=== PATIENT | female | born 1990 | race Caucasian/White ===

== ENCOUNTER 2022-07-26 10:27 | Outpatient (REF) | payer OTHER, SELFPAY ==
[2022-07-27 09:51] LABS: CT PCR NOT DETECTED (Not Detect.); NG PCR NOT DETECTED (Not Detect.)
[2022-07-27 10:03] LABS: BV Int Neg Control Negative (Negative); BV Int Pos Control Positive (Positive)
[2022-08-01 09:28] LABS: HPV 16 RNA NOT DETECTED (NOT DETECTED); HPV mRNA E6/E7 rflx Detected (Not Detected)
== END 2022-07-26 10:28 | disposition home or self-care (01) ==
LOC: HO.LNP 10:27
PROVIDERS: Visit Provider Advanced Practice Midwife
DX: Z01.419 Encounter for gynecological examination (general) (routine) without abnormal findings (principal); E66.01 Morbid (severe) obesity due to excess calories; Z20.2 Contact with and (suspected) exposure to infections with a predominantly sexual mode of transmission
CPT/HCPCS: 0353U; 87480; 87510; 87624; 87625; 87660; 88142

== ENCOUNTER 2022-07-31 13:31 | Outpatient (REF) | payer OTHER, SELFPAY ==
[2022-07-31 16:21] LABS: Thyroid Stimulating Hormone 1.02 uIU/mL (0.32-4.0)
[2022-08-01 05:35] LABS: Syphilis Screen Nonreactive (Nonreactive)
[2022-08-01 05:53] LABS: HBsAGNum1 0.24 S/CO (0.00-0.99); HIV AB/AG Nonreactive (Nonreactive); HIV Num 1 0.07 S/CO (0.00-0.99); Hepatitis B Surface Antigen Negative (Negative); ~HepC Num1 0.38 S/CO (0.00-0.79); ~Hepatitis C Antibody Nonreactive (Nonreactive)
== END 2022-07-31 13:32 | disposition home or self-care (01) ==
LOC: HO.LAB 13:31
PROVIDERS: Visit Provider Advanced Practice Midwife
DX: Z01.419 Encounter for gynecological examination (general) (routine) without abnormal findings (principal); E66.01 Morbid (severe) obesity due to excess calories; Z11.3 Encounter for screening for infections with a predominantly sexual mode of transmission
CPT/HCPCS: 36415; 84443; 86780; 86803; 87340; 87389

== ENCOUNTER 2022-08-30 10:07 | Outpatient (REF) | payer OTHER, SELFPAY ==
[2022-08-31 09:06] LABS: BV Int Neg Control Negative (Negative)
[2022-08-31 09:07] LABS: BV Int Pos Control Positive (Positive)
== END 2022-08-30 10:08 | disposition home or self-care (01) ==
LOC: HO.LNP 10:07
PROVIDERS: Visit Provider Advanced Practice Midwife
DX: N89.8 Other specified noninflammatory disorders of vagina (principal); B37.31 Acute candidiasis of vulva and vagina
CPT/HCPCS: 87480; 87510; 87660; 99212

== ENCOUNTER 2023-07-31 13:18 | Outpatient (REF) | payer OTHER, SELFPAY ==
[2023-08-08 05:09] LABS: HPV 16 RNA NOT DETECTED (NOT DETECTED); HPV mRNA E6/E7 rflx Detected (Not Detected)
== END 2023-07-31 13:19 | disposition home or self-care (01) ==
LOC: HO.LNP 13:18
PROVIDERS: PCP Internal Medicine; Visit Provider Advanced Practice Midwife
DX: Z01.419 Encounter for gynecological examination (general) (routine) without abnormal findings (principal); Z11.51 Encounter for screening for human papillomavirus (HPV); L98.9 Disorder of the skin and subcutaneous tissue, unspecified; R03.0 Elevated blood-pressure reading, without diagnosis of hypertension
CPT/HCPCS: 87624; 87625; 88142; 99395

== ENCOUNTER 2023-07-31 13:18 | Outpatient (AMB) | payer OTHER, SELFPAY ==
[2023-07-31 13:17] VITALS: BP 130/84; BMI 39.9
--- NOTE | 2023-07-31 13:17 | A.OFFVIS_ITS ---
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 I discussed this with the patient and she said something happened with the appointment and she could not come and it was going to be changed and she does not remember what happened after that I stressed with her the importance of coming for colposcopy and that I will do a Pap smear today and testing for STIs as she requests but that her next appointment absolutely has to be with Dr. Do for colposcopy and I stressed the importance of it. [facility] Surgical History Hx of tubal ligation Family History Paternal Grandfather Colon cancer Social History Household Members: None Housing: Apartment Patient Tobacco Use Status: Current everyday Tobacco user Cigarettes Per Day: 8 Female Reproductive History Menstrual Age of Menarche: 11 Duration of menses: 6-7 days Date of last menstrual period: 07/10/23 control method: none Date of last pap smear: 07/26/22 History of abnormal pap smear: Yes (High grade squamous intraepithelial lesion (FLAQUITO II-III)) Physical Exam Vital Signs: Last Vital Signs BP 130/84 07/31/23 13:17 BMI result Body Mass Index 39.9 Const General: healthy appearing, comfortable, no acute distress, well developed and alert Nutritional Appearance: average body habitus Orientation/consciousness: patient oriented x3 Limitations: no limitations HEENT Head: Yes normocephalic Neck Neck: Yes normal visual inspection Chest Chest palpation & inspection: normal inspection of the chest Breast/axilla inspection: normal inspection of the breasts and normal inspection of the axillae Breast/axilla palpation: normal palpation of the breasts and normal palpation of the axillae Resp Effort & Inspection: normal respiratory effort GI Inspection: Yes normal to inspection, No Abdominal wall edema and No distended Palpation (GI): Soft to palpation and nontender Other: Patient has 3 flat dark cutaneous lesions in her groin area. It is unclear what these are and she has an appointment in the upcoming weeks with her primary care provider and I highly recommend she requested dermatology referral. 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 General: Yes bladder normal to palpation External Female Exam: normal external appearance and normal appearance of the urethra Speculum Exam - Vagina: normal appearance of the vagina, normal palpation and normal vaginal discharge Speculum Exam - Cervix: normal appearance of the cervix, normal palpation and nontender Bimanual exam- vagina & uterus: normal bimanual exam, normal palpation, uterine size normal, bladder normal to palpation, consistency normal, normal palpation, uterine mobility normal, uterine shape normal, No Cervical tenderness present, non-tender and no cervical motion tenderness Bimanual Exam- Adnexa, other: normal adnexae, no masses, normal and No adnexal tenderness Neuro General: patient oriented x3 Assessment & Plan Assessment & Plan (1) Diabetes: Comment: Reports of blood sugar while applying for a [place] license of 260+. Currently has no PCP to try and sign up today. Code(s): E11.9 - Type 2 diabetes mellitus without complications (2) Cervical cancer screening: Comment: 07/26/2022 Pap is abnormal with FLAQUITO 2 -FLAQUITO 3 and positive HPV. Needs colpo YUE...//07/31/23-pt apparently did not come for colpo!pap repeated today, but pt must have colpo yue! stressed importance of coming. Code(s): Z12.4 - Encounter for screening for malignant neoplasm of cervix (3) Obesity, morbid, BMI 40.0-49.9: Comment: Urging weight loss and attention to probably undiagnosed diabetes and hypertension being discussed at today's problem visit. Code(s): E66.01 - Morbid (severe) obesity due to excess calories (4) Women's annual routine gynecological examination: Code(s): Z01.419 - Encounter for gynecological examination (general) (routine) without abnormal findings (5) Elevated blood pressure reading: Comment: See note to seek primary care provider today./07/31/2023 patient now has primary care provider in [place] and is on a medication for hypertension she is normotensive today but she will be following up with her doctor next month and there has a potential for a change in medication. Code(s): R03.0 - Elevated blood-pressure reading, without diagnosis of hypertension (6) Screen for sexually transmitted diseases: Code(s): Z11.3 - Encounter for screening for infections with a predominantly sexual mode of transmission (7) Skin lesions, generalized: Comment: Three irregular darkened large skin lesions in right groin patient to seek dermatology referral Code(s): L98.9 - Disorder of the skin and subcutaneous tissue, unspecified Plan -----Discussed in this visit the following: healthy balanced diet, regular and consistent exercise, getting recommended health screens, doing the best she can for her particular health concerns, kegel exercises, pap smear screening and followup recommendations, mammography screening and SBE, normal changes in cycles in her life stage--- . 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 Additionally I recommend she void frequently the importance of keeping those muscles strong was discussed. For the skin lesions in her groin I have no idea what they are and I recommend she seek a dermatology referral from her primary care provider when she sees him or her next month. She is going to be following up with her primary care provider and discussing a possible change in her blood pressure medicine though her blood pressure is better now than it was last year. As regards at checking for STDs she wishes to get lab work done today in the lab for HIV hep B hep C and syphilis testing done during the visit for gonorrhea chlamydia trichomoniasis Gardnerella and Teresa her discharge did appeared normal She has her tubes tied so she has not worried about control Discussed that even though her cervix can appear normal the Pap smear last year was very abnormal and she absolutely has to go see Dr. Do for the next appointment for colposcopy and I made her promised to not miss this appointment as this was very important. The cervix does appear slightly extra firm in the anterior portion and it is unclear if this has any relation to the Pap smear or not Orders: Orders Pap Smear Today Z01.419 - Encounter for gynecological examination (general) (routine) without abnormal findings CT NG by PCR Today Z01.419 - Encounter for gynecological examination (general) (routine) without abnormal findings HIV Ab/Ag Today E66.01 - Morbid (severe) obesity due to excess calories, R03.0 - Elevated blood-pressure reading, without diagnosis of hypertension, Z01.419 - Encounter for gynecological examination (general) (routine) without abnormal findings, Z11.3 - Encounter for screening for infections with a predominantly sexual mode of transmission, Z12.4 - Encounter for screening for malignant neoplasm of cervix Bacterial Vaginosis Panel Today Z01.419 - Encounter for gynecological examination (general) (routine) without abnormal findings Pap Smear Today Z12.4 - Encounter for screening for malignant neoplasm of cervix Hepatitis B Surface Antigen Today E66.01 - Morbid (severe) obesity due to excess calories, R03.0 - Elevated blood-pressure reading, without diagnosis of hypertension, Z01.419 - Encounter for gynecological examination (general) (routine) without abnormal findings, Z11.3 - Encounter for screening for infections with a predominantly sexual mode of transmission, Z12.4 - Encounter for screening for malignant neoplasm of cervix Hepatitis C Antibody Today E66.01 - Morbid (severe) obesity due to excess calories, R03.0 - Elevated blood-pressure reading, without diagnosis of hy pertension, Z01.419 - Encounter for gynecological examination (general) (routine) without abnormal findings, Z11.3 - Encounter for screening for infections with a predominantly sexual mode of transmission, Z12.4 - Encounter for screening for malignant neoplasm of cervix Syphilis Screen Today E66.01 - Morbid (severe) obesity due to excess calories, R03.0 - Elevated blood-pressure reading, without diagnosis of hypertension, Z01.419 - Encounter for gynecological examination (general) (routine) without abnormal findings, Z11.3 - Encounter for screening for infections with a predominantly sexual mode of transmission, Z12.4 - Encounter for screening for malignant neoplasm of cervix Coding Level of Care Code Est Pt Prev Care 18-39y(30069) Diagnoses Diabetes E11.9 Cervical cancer screening Z12.4 Obesity, morbid, BMI 40.0-49.9 E66.01 Women's annual routine gynecological examination Z01.419 Elevated blood pressure reading R03.0 Screen for sexually transmitted diseases Z11.3 Skin lesions, generalized L98.9
== END 2023-07-31 14:19 | disposition home or self-care (01) ==
LOC: HO.HWS 13:18
PROVIDERS: PCP Internal Medicine; Visit Provider Advanced Practice Midwife
DX: Z01.419 Encounter for gynecological examination (general) (routine) without abnormal findings (principal); E11.9 Type 2 diabetes mellitus without complications; E66.01 Morbid (severe) obesity due to excess calories; R03.0 Elevated blood-pressure reading, without diagnosis of hypertension; L98.9 Disorder of the skin and subcutaneous tissue, unspecified
CPT/HCPCS: 99395

== ENCOUNTER 2023-07-31 13:59 | Outpatient (REF) | payer OTHER, SELFPAY ==
[2023-08-01 02:38] LABS: CT PCR NOT DETECTED (Not Detect.); NG PCR NOT DETECTED (Not Detect.)
[2023-08-01 08:42] LABS: Syphilis Screen Nonreactive (Nonreactive)
[2023-08-01 09:09] LABS: HBsAGNum1 0.34 S/CO (0.00-0.99); HIV AB/AG Nonreactive (Nonreactive); HIV Num 1 0.06 S/CO (0.00-0.99); Hepatitis B Surface Antigen Negative (Negative); ~HepC Num1 0.39 S/CO (0.00-0.79); ~Hepatitis C Antibody Nonreactive (Nonreactive)
[2023-08-01 11:11] LABS: BV Int Neg Control Negative (Negative); BV Int Pos Control Positive (Positive)
== END 2023-07-31 14:00 | disposition home or self-care (01) ==
LOC: HO.HHCL 13:59
PROVIDERS: Visit Provider Advanced Practice Midwife
DX: Z11.3 Encounter for screening for infections with a predominantly sexual mode of transmission (principal); Z11.4 Encounter for screening for human immunodeficiency virus [HIV]; R03.0 Elevated blood-pressure reading, without diagnosis of hypertension; E66.01 Morbid (severe) obesity due to excess calories
CPT/HCPCS: 0353U; 86780; 86803; 87340; 87389; 87480; 87510; 87660

== ENCOUNTER 2023-08-26 08:04 | Outpatient (AMB) | payer OTHER, SELFPAY ==
--- NOTE | 2023-08-26 08:07 | A.OFFVIS_ITS ---
Intake Vital Signs 08/26/23 08:08 Height 5 ft 2 in Weight 218 lb BMI 39.9 BP 120/84 Intake Visit Reasons: Colposcopy Audio Specialist Required: Yes Audio Specialist Language: Force Variation Equipment Tender Name: Garrett [id number] Information Interpreted: non-clinical & clinical Service Advocate Contact: Service Advocate Contact Present (Marta) Allergies Penicillins Allergy (Unknown, Verified 08/26/23 08:13) Unknown Is last menstrual period known: Yes Last menstrual period: 09/09/23 HPI HPI Comments History of Present Illness Details Presenting for colposcopy for HGSIL/HPV E6/E7 positive, HPV 16/18/45 negative PFSH Surgical History Hx of tubal ligation Family History Paternal Grandfather Colon cancer Social History Household Members: None Housing: Apartment Patient Tobacco Use Status: Current everyday Tobacco user Cigarettes Per Day: 8 Female Reproductive History Menstrual Age of Menarche: 11 Date of last menstrual period: 09/09/23 Date of last pap smear: 07/31/23 (HGSIL +HPV) History of abnormal pap smear: Yes Review of Systems Const All systems reviewed & are unremarkable except as noted in HPI and below Physical Exam Vital Signs: Last Vital Signs BP 120/84 08/26/23 08:08 BMI result Body Mass Index 39.9 General: Yes no CVA tenderness External Female Exam: normal external appearance and normal appearance of the urethra Speculum Exam - Vagina: normal appearance of the vagina, normal palpation, no lesions and no masses Speculum Exam - Cervix: normal appearance of the cervix, normal palpation, no lesions, no masses and nontender Bimanual exam- vagina & uterus: normal bimanual exam, normal palpation, uterine size normal, normal palpation, uterine shape normal, No Cervical tenderness present and non-tender Bimanual Exam- Adnexa, other: normal adnexae Back/Spine/Pelvis Back: no CVA tenderness Office Procedures Colposcopy Before the procedure was started discussed with the patient the procedure, alternatives & all the risks associated with the procedure (bleeding, infection, injury to vagina, bladder, vessels, possible need for transfusion with all its risks) then patient signed the consent UPT done in the office & negative Pap smear = HGSIL/HPV E6/E7 positive, HPV 16/18/45 negative Speculum inserted, acetic acid used Colposcopy done Transformation zone seen, acetowhite lesions identified at 6+7+11+12+1+4 o?clock, cervical biopsies taken from 6+7+11+12+1+4 o?clock, ECC done afterwards. Vaginoscopy of the upper vagina showed no evidence of any aceto-white lesions Monsel solution used for hemostasis. The patient tolerated well . At the end the patient was instructed to call if temp>100.4, abdominal pain, n/v, bleeding; The patient was given the following instructions: nothing per vagina, no intercourse or bath tub use. All questions answered the patient verbalized understanding. Instructed the patient to make an appointment in [address] [place] [address] for follow-up This note was generated with a voice recognition program. Some errors may have been overlooked during the review of this note. Sometimes these errors may affect the content or meaning of a given sentence. [id number] of cervix including upper vagina with biopsy and ECC Procedure code (CPT) selection complete Results AMB Test Urine AMB Test Urine Negative Last Edit by ROMIE Hsu on 08/26/23 08:20 Results Reviewed Results Reviewed: Laboratory Last Values [facility] Negative 08/26/23 08:20 Assessment & Plan Assessment & Plan (1) HGSIL (high grade squamous intraepithelial lesion) on Pap smear of cervix: Code(s): R87.613 - High grade squamous intraepithelial lesion on cytologic smear of cervix (HGSIL) Plan: Discussed with the patient the result of her abnormal pap, its significance, risk of progression, persistence, and regression. the false positive/negative rate of a Pap smear as a screening test in detecting cervical cancer and the indication for a diagnostic test -colposcopy, biopsy, endocervical curettage. Colposcopy done, see procedure note The patient verbalized understanding and agreed with the plan, all questions answered. Orders: Orders AMB HCG Urine Test Today Z32.02 - Encounter for test, result negative AMB Colposcopy Today R87.613 - High grade squamous intraepithelial lesion on cytologic smear of cervix (HGSIL) Coding Level of Care Code Procedure Only Diagnoses HGSIL (high grade squamous intraepithelial lesion) on Pap smear of cervix R87.613 CPT Codes Colposcopy - CPT: 92021-Zphfwccvl of cervix including upper vagina with biopsy and ECC ([id number])
[2023-08-26 08:08] VITALS: BP 120/84; BMI 39.9
== END 2023-08-26 08:37 | disposition home or self-care (01) ==
PROVIDERS: PCP Internal Medicine; Visit Provider Obstetrics & Gynecology
DX: R87.613 High grade squamous intraepithelial lesion on cytologic smear of cervix (HGSIL) (principal); Z32.02 Encounter for pregnancy test, result negative
CPT/HCPCS: 57454

== ENCOUNTER 2023-08-26 08:04 | Outpatient (REF) | payer OTHER, SELFPAY | END 2023-08-26 08:05 | disposition home or self-care (01) | LOC: HO.LAB 08:04 | PROVIDERS: PCP Internal Medicine; Visit Provider Obstetrics & Gynecology | DX: R87.613 High grade squamous intraepithelial lesion on cytologic smear of cervix (HGSIL) (principal); Z32.02 Encounter for pregnancy test, result negative | CPT/HCPCS: 57454; 81025; 88305 ==

== ENCOUNTER 2023-08-26 13:26 | Outpatient (AMB) | payer OTHER, SELFPAY ==
--- NOTE | 2023-08-26 13:42 | A.OFFPC_ITS ---
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 Transferring care from Unknown (From [place]) . Medical records have not been requested and have not received. 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 Flow Engineer Required: Yes Material Flow Engineer Language: Mud Worker Name: Mikey ([id number]) Information Interpreted: non-clinical & clinical [employer]ber Tire Curer: Not Required per policy Accompanied by: Self / Same As Patient Allergies Penicillins Allergy (Unknown, Verified 08/26/23 14:39) Unknown Medication List - Last Reconciled 08/26/23 by Dakota Wilkins MD lisinopril 5 mg PO QAM metformin 1,000 mg PO BID Tobacco use date assessed: 08/26/23 Dental Screening Dental Screen Date: 08/26/23 Did you have a dental visit in the last 12 months?: Yes Did you have a dental problem in the last 6 months where you did not have access to dental care?: No Was dental information given to patient?: Patient has dentist 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 although patient now indicated that she has not taken her blood pressure and blood sugar medications for the past 3 months as she was supposedly advised by some doctor (she does not remember exactly where - thinks it was a doctor in [place]) that her blood pressure and blood sugar were okay and she no longer need to take any medications at this time (?) Patient adds that she's had some problem with the tip of her left middle finger for over a year now and is wondering if there is anything she can take or do to get it back to normal - the tip of her finger appears split and heavily calloused I suspect from the way her finger appears that this may have started out as a paronychia that persisted and never healed up completely and these are now all residual and dried up granulation tissues - patient states that her finger does not hurt States that she feels okay overall She denies any headaches or dizziness Denies any chest pains, no SOB No nausea/vomiting, no abdominal pain No change in bowel habits noted [facility] Medical History (Updated 08/27/23 @ 03:28 by Dakota Wilkins MD) Obesity (BMI 30-39.9) Smoker HGSIL (high grade squamous intraepithelial lesion) on Pap smear of cervix Surgical History (Updated 08/27/23 @ 03:29 by Dakota Wilkins MD) History of colposcopy (~08/26/23) Hx of tubal ligation Family History Paternal Grandfather Colon cancer Social History Household Members: None Housing: Apartment Alcohol intake: never Patient Tobacco Use Status: Current everyday Tobacco user Tobacco use type: Cigarette Cigarette Packs Per Day: 0.5 Cigarettes Per Day: 5 e-Cigarette/Vaping Use: Never Used Second Hand Smoke Exposure: Yes service: No Current occupational status: unemployed Cognitive needs: No Hearing needs: No Vision needs: No Female Reproductive History Menstrual Age of Menarche: 11 Questionnaire PHQ-9 Over the last 2 weeks, how often have you been bothered by any of the following problems? 1. Little interest or pleasure in doing things: not at all 2. Feeling down, depressed, or hopeless: not at all 3. Trouble falling or staying asleep, or sleeping too much: not at all 4. Feeling tired or having little energy: not at all 5. Poor appetite or overeating: not at all 6. Feeling bad about yourself - or that you are a failure or have let yourself or your family down: not at all 7. Trouble concentrating on things, such as reading the newspaper or watching television: not at all 8. Moving or speaking so slowly that other people could have noticed. Or the opposite - being so fidgety or restless that you have been moving around a lot more than usual: not at all 9. Thoughts that you would be better off or of hurting yourself in some way: not at all Total score: 0 Depression Screening Interpretation: Negative Depression Screening Done: Yes 60131 - PHQ-9 Billing: Yes Source: Developed by Drs. Anthony Oakes, Kendy Ford, Alf Billings and colleagues, with an educational timoteo from [employer]. Thrive Questionnaire Date Thrive assessed: 08/26/23 I am a: Patient What is your living situation today?: I have a steady place to live Within the past 12 months, did the food you bought not last and you didn't have the money to get more?: Never true Within the past 12 months, did you worry whether your food would run out before you got money to buy more?: Never true Do you have trouble paying for medicines?: No Do you have trouble getting transportation to medical appointments?: No Do you have trouble paying your heating and electricity bill?: No Do you have trouble taking care of your child, family member or friend?: No Do you have trouble with day-to-day activities such as bathing, preparing meals, shopping, managing finances, etc.?: No Are you currently unemployed and looking for a job?: No Are you interested in more education?: No Currently or been in a relationship where the following occur: no concerns reported THRIVE Score: 0 AUDIT C Alcohol Use Questionnaire (AUDIT-C) 1. How often do you have a drink containing alcohol?: Never 3. How often do you have six or more drinks on one occasion?: Never Total Score: 0 Score Reviewed/Action Taken: Yes JADE-7 AMB Questionnaire JADE-7 Date JADE - 7 assessed: 08/26/23 Feeling nervous, anxious, or on edge: 0 = Not at all Not being able to stop or control worryin = Not at all Worrying too much about different things: 0 = Not at all Trouble relaxin = Not at all Being so restless that it is hard to sit still: 0 = Not at all Becoming easily annoyed or irritable: 0 = Not at all Feeling afraid as if something awful might happen: 0 = Not at all Total JADE-7 score (0-4 normal; 5-9 mild; 10-14 moderate; 15-21 severe): 0 Source: Developed by Drs. Anthony Oakes, Kendy Ford, Alf cosby nd colleagues, with an educational timoteo from [employer]. Review of Systems Const Denies chills, Denies fatigue, Denies fever(s) and Denies headache(s) ENT Denies dysphagia, Denies dizziness, Denies otalgia, Denies headache(s), Denies neck pain, Denies odynophagia and Denies sore throat Card Denies chest pain, Denies palpitations and Denies dyspnea Resp Denies cough and Denies dyspnea GI Denies abdominal pain, Denies constipation, Denies dysphagia, Denies heartburn, Denies diarrhea, Denies nausea, Denies odynophagia and Denies vomiting Denies difficulty voiding, Denies nocturia, Denies dysuria and Denies urinary urgency Musc Denies back pain and Denies neck pain Skin/Breast Details: (+) heavily calloused lesion on the tip of the left middle finger Denies rash Neuro Denies dizziness and Denies headache(s) Endo Denies fatigue and Denies palpitations Physical exam (Primary Care) Vital Signs: Last Vital Signs Pulse 70 08/26/23 13:46 BP 122/70 08/26/23 13:46 Pulse Ox 98 08/26/23 13:46 Oxygen Delivery Method Room Air 08/26/23 13:46 BMI result Body Mass Index 35.5 Tobacco/Smoking Status: Tobacco use Status Tobacco use date assessed 08/26/23 08/26/23 13:46 Patient Tobacco Use Status Current everyday Tobacco 08/26/23 14:09 Tobacco use type Cigarette 08/26/23 14:09 e-Cigarette/Vaping Use Never Used 08/26/23 14:09 PHQ-9: PHQ-9 Score PHQ-9: Total score 0 08/26/23 19:09 Depression Screening Interpretation: Negative Thrive Assessment: Date of Thrive Assessment Date Thrive assessed 04/01/24 04/01/24 13:46 Currently or been in a relationship where the following occur: no concerns reported Const General: no acute distress and alert HENMT Ears: TM's normal bilaterally and EAC's normal Throat: Yes posterior oropharynx normal and Yes tonsils normal (no TP congestion) Neck Neck: Yes no lymphadenopathy and Yes supple Thyroid: Thyroid normal Resp Auscultation: clear to auscultation bilaterally, no rales and no wheezes Cardio Rate: regular rate Rhythm: regular rhythm Heart sounds: no murmurs GI Palpation (GI): Soft to palpation and nontender Auscultation: normal bowel sounds General: Yes no CVA tenderness Back/Spine/Pelvis Back: no CVA tenderness Skin Other: (+) thick, calloused, non-tender lesion on the tip of the left middle finger Rashes: no rashes Extrem General: Yes no clubbing, cyanosis or edema Results AMB Test Urine AMB Test Urine Negative Last Edit by ROMIE Hsu on 08/26/23 08:20 Assessment and Plan Assessment & Plan (1) Hyperglycemia: Code(s): R73.9 - Hyperglycemia, unspecified Plan: Patient was reportedly found to have a high blood sugar reading of around 260 mg/dl 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 and was reportedly started by someone on Metformin 1000 mg BID although she now admits that she has not been taking her meds for about 3 months now as she was supposedly recently advised again by someone (she cannot remember who although she does not speak Jordanian and this may just be because she has difficulty providing accurate information even with the aid of [employer] services through a computer tablet) that she no longer need to take her meds For now, have advised patient that I will send her to get some fasting labs done YUE to help clarify her conditions first and we will then determine if she needs any Rx once we have the results of her labs Have discussed with patient to try to stay on a low calorie/diabetic diet in the meantime until further notice although I suspect that compliance may be an issue for her (2) Elevated blood-pressure reading without diagnosis of hypertension: Code(s): R03.0 - Elevated blood-pressure reading, without diagnosis of hypertension Plan: Her blood pressure appears adequately controlled today at 122/70 mm and if what she said about not taking her Lisinopril 5 mg QD for the past 3 months is true, then she likely does not need to continue taking any antihypertensive meds at this time Reinforced low sodium diet (3) Lesion of finger: Code(s): L98.9 - Disorder of the skin and subcutaneous tissue, unspecified Plan: Advised that this looks like the residual of an old paronychia lesion Will start her empirically on Doxycycline 100 mg BID x 7 days and if no improvement is noted, will consider referring her to surgery although advised that even surgery may not be able to do much to help get this back to a normal appearance if this is indeed an old and scarred paronychia lesion (4) HGSIL (high grade squamous intraepithelial lesion) on Pap smear of cervix: Code(s): R87.613 - High grade squamous intraepithelial lesion on cytologic smear of cervix (HGSIL) Plan: S?P colposcopy earlier today with Dr. Do Follow up with gynecology as scheduled (5) Smoker: Code(s): F17.200 - Nicotine dependence, unspecified, uncomplicated Plan: Counseled on smoking cessation (6) Obesity (BMI 30-39.9): Code(s): E66.9 - Obesity, unspecified Plan: Reinforced diet/exercise as tolerated/lose weight Plan Follow up in 2 to 3 months Orders: Orders Comprehensive [place]. Panel Fast 08/26/23 E78.00 - Pure hypercholesterolemia, unspecified Microalbumin, Random (w Creat) 08/26/23 E11.9 - Type 2 diabetes mellitus without complications TSH reflex Free T4 08/26/23 E78.00 - Pure hypercholesterolemia, unspecified UA CC w/rflx Micro + Cult 08/26/23 R30.0 - Dysuria Complete Blood Count Auto Diff 08/26/23 D64.9 - Anemia, unspecified Lipid Panel 08/26/23 E78.00 - Pure hypercholesterolemia, unspecified Vitamin D 25-OH Total 08/26/23 E55.9 - Vitamin D deficiency, unspecified Hemoglobin A1c 08/26/23 E11.9 - Type 2 diabetes mellitus without complications Medications: New doxycycline monohydrate 100 mg PO BID 7 days 14 caps 0RF Coding Level of Care Code New Pt Level 4 (54503) Diagnoses Hyperglycemia R73.9 Elevated blood-pressure reading without diagnosis of hypertension R03.0 Lesion of finger L98.9 HGSIL (high grade squamous intraepithelial lesion) on Pap smear of cervix R87.613 Smoker F17.200 Obesity (BMI 30-39.9) E66.9
[2023-08-26 13:46] VITALS: BP 122/70; PULSE 70; O2SAT 98; BMI 35.5
== END 2023-08-26 14:54 | disposition home or self-care (01) ==
PROVIDERS: PCP Internal Medicine; Visit Provider Internal Medicine
DX: R73.9 Hyperglycemia, unspecified (principal); R03.0 Elevated blood-pressure reading, without diagnosis of hypertension; E66.9 Obesity, unspecified; Z68.35 Body mass index [BMI] 35.0-35.9, adult; L98.9 Disorder of the skin and subcutaneous tissue, unspecified; R87.613 High grade squamous intraepithelial lesion on cytologic smear of cervix (HGSIL); F17.200 Nicotine dependence, unspecified, uncomplicated
CPT/HCPCS: 99204

== ENCOUNTER 2023-08-28 15:53 | Outpatient (AMB) | payer OTHER, SELFPAY ==
--- NOTE | 2023-08-28 16:04 | A.OFFVIS_ITS ---
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 The patient is doing well with no complaints. The pathology showed the following: A. Endocervix, curettage: Detached fragments of high-grade squamous intrae pithelial lesion, and fragments of benign endocervical glandular and lower uterine segment mucosa. B. Cervix, 1:00, biopsy: Endocervical glandular mucosa with focal metaplasia; negative for dysplasia. C. Cervix, 4:00, biopsy: Squamous and endocervical glandular mucosa with marked inflammation; negative for dysplasia. D. Cervix, 6:00, biopsy: High-grade squamous intraepithelial lesion (moderate dysplasia, FLAQUITO 2) ; endocervical glandular mucosa present. E. Cervix, 7:00, biopsy: Squamous and endocervical glandular mucosa with rare atypical cells. F. Cervix, 11:00, biopsy: High-grade squamous intraepithelial lesion (moderate dysplasia, FLAQUITO 2); endocervical glandular mucosa presen t. G. Cervix, 12:00, biopsy: High-grade squamous intraepithelial lesion (moderate dysplasia, FLAQUITO 2); endocervical glandular mucosa presen t. Comment: The high-grade dysplasia present in the patient's previous Pap test (BP05-110) concurs with the current biopsy [facility] Medical History Obesity (BMI 30-39.9) Smoker HGSIL (high grade squamous intraepithelial lesion) on Pap smear of cervix Surgical History History of colposcopy (~08/26/23) Hx of tubal ligation Family History Paternal Grandfather Colon cancer Social History Household Members: None Housing: Apartment Alcohol intake: never Patient Tobacco Use Status: Current everyday Tobacco user Tobacco use type: Cigarette Cigarette Packs Per Day: 0.5 Cigarettes Per Day: 5 e-Cigarette/Vaping Use: Never Used Second Hand Smoke Exposure: Yes service: No Current occupational status: unemployed Cognitive needs: No Hearing needs: No Vision needs: No Female Reproductive History Menstrual Age of Menarche: 11 Date of last menstrual period: 03/24/20 Total pregnancies: 2 Full term: 2 Review of Systems Card Reports as per HPI and Reports no additional complaints Resp Reports as per HPI and Reports no additional complaints GI Reports as per HPI and Reports no additional complaints Reports as per HPI Physical Exam Const General: cooperative, healthy appearing and comfortable Resp Effort & Inspection: normal respiratory effort Auscultation: clear to auscultation bilaterally Percussion: percussion normal Cardio Palpation: normal PMI Rate: regular rate Rhythm: regular rhythm Heart sounds: no murmurs and no rubs Peripheral pulses: Peripheral pulses 2+ throughout GI Inspection: Yes normal to inspection Palpation (GI): Soft to palpation, nontender, no guarding, not rigid and No hepatosplenomegaly present Percussion: Yes normal to percussion Auscultation: normal bowel sounds Rectal Exam - Female: deferred Assessment & Plan Assessment & Plan (1) FLAQUITO II (cervical intraepithelial neoplasia II): Code(s): N87.1 - Moderate cervical dysplasia Plan: Discussed with the patient the pathology results of the colposcopy biopsies & endocervical curettage ( moderate dysplasia-FLAQUITO 2 with high-grade dysplasia detached on ECC). Discussed with the patient the sensitivity specificity, positive and negative predictive value in detecting cervical cancer in addition discussed the regression, persistence and progression rates. Addition discussed with the patient the risk of progression to cancer and impact of excision pro cedure on her future (the patient is status post tubal ligation). Per ASCCP guidelines, 2 options of management were discussed with the patient including either observation with HPV based screening and colposcopy biopsy at 6 months and 12 months versus a diagnostic excisional procedures, which is the preferred method of management. The patient is concerned more about the progression of FLAQUITO 2 to cancer than the excisional procedure impact on her future and she decided to proceed with a LEEP, possible cone with post cone ECC. Discussed with the patient the procedure, its benefits and risks including bleeding, infection, possible need for blood transfusion with all its risk ( HIV, syphilis, Hepatitis, anaphylaxis shock, others..), injury to bladder, rectum, possible re-excision for positive margins, potential need for hysterectomy, possible future negative impact on fertility including ( cervical stenosis, incompetence , increase risk for c section 2ndary to cervical scarring and failure of dilatation), possible positive margin necessitating re-excision. Also discussed the patient options of anesthesia either paracervical block versus IV sedation/MAC, prefers to proceed with IV sedation/MAC. All questions answered, the patient verbalized understanding and signed the consent. Coding Level of Care Code Est Pt Level 3 (36235) Diagnoses FLAQUITO II (cervical intraepithelial neoplasia II) N87.1
[2023-08-28 16:09] VITALS: BP 118/80; BMI 35.3
== END 2023-08-28 16:45 | disposition home or self-care (01) ==
LOC: HO.HWS 15:53
PROVIDERS: PCP Internal Medicine; Visit Provider Obstetrics & Gynecology
DX: N87.1 Moderate cervical dysplasia (principal)
CPT/HCPCS: 99213

== ENCOUNTER → 2023-08-28 15:53 | Outpatient (BNVA) | payer OTHER, SELFPAY | PROVIDERS: PCP Internal Medicine; Visit Provider Obstetrics & Gynecology | DX: N87.1 Moderate cervical dysplasia (principal) | CPT/HCPCS: 99212 ==

== ENCOUNTER 2023-09-17 12:11 | Day surgery (SDC) | payer OTHER, SELFPAY ==
--- NOTE | 2023-09-16 10:02 | HO.ANESPROP2 ---
Documented by User: Kerry Carrillo NP 09/16/23 10:03 HPI - Anesthesia Eval Consult details Narrative: 32yo F for LEEP,poss loop electric excision,poss loop electrical,cone and post endocervical curettage PMFSH Active Problems Active Problems: All Active Problems FLAQUITO II (cervical intraepithelial neoplasia II) (Acute) Obesity (BMI 30-39.9) (Acute) Smoker (Acute) HGSIL (high grade squamous intraepithelial lesion) on Pap smear of cervix (Acute) Lesion of finger (Acute) Elevated blood-pressure reading without diagnosis of hypertension (Acute) Hyperglycemia (Acute) Skin lesions, generalized (Acute) Elevated blood pressure reading (Acute) Diabetes (Acute) Candidiasis of genitalia in female (Acute) Cellulitis and abscess of other specified site (Acute) Folliculitis barbae (Acute) Screen for sexually transmitted diseases (Acute) Cervical cancer screening (Acute) Obesity, morbid, BMI 40.0-49.9 (Acute) Women's annual routine gynecological examination (Acute) Past Medical History Medical History Obesity (BMI 30-39.9) Smoker HGSIL (high grade squamous intraepithelial lesion) on Pap smear of cervix Family History Family History Paternal Grandfather Colon cancer Surgical History Surgical History History of colposcopy (~08/26/23) Hx of tubal ligation Social History Social History Household Members: None Housing: Apartment Alcohol intake: never Patient Tobacco Use Status: Current someday Tobacco user Tobacco use type: Cigarette Cigarette Packs Per Day: 0.5 Cigarettes Per Day: 5 e-Cigarette/Vaping Use: Never Used Second Hand Smoke Exposure: Yes Use of substances other than those prescribed or required for medical reasons: Yes Substance Use Frequency: Weekly Advance Directives: No Advance Directives Information Provided: Yes service: No Current occupational status: unemployed Cognitive needs: No Hearing needs: No Vision needs: No Meds Allergies Allergy/AdvReac Type Severity Reaction Status Date / Time Penicillins Allergy Unknown Unknown Verified 09/17/23 12:44 Home Medications ?Medication ?Instructions ?Recorded ?Confirmed ?Last Taken ?Type lisinopril 10 mg tablet 5 mg PO QAM 08/26/23 09/17/23 06/18/23 History metformin 1,000 mg tablet 1,000 mg PO BID 08/26/23 09/17/23 09/17/23 History Assessment and Plan Assessment Anesthesia Assessment: Chart Reviewed Documented by User: Uma Rivera MD 09/17/23 14:11 PMFSH Active Problems Active Problems: q1All Active Problems FLAQUITO II (cervical intraepithelial neoplasia II) (Acute) Obesity (BMI 30-39.9) (Acute) Smoker (Acute) HGSIL (high grade squamous intraepithelial lesion) on Pap smear of cervix (Acute) Lesion of finger (Acute) Elevated blood-pressure reading without diagnosis of hypertension (Acute) Hyperglycemia (Acute) Skin lesions, generalized (Acute) Elevated blood pressure reading (Acute) Diabetes (Acute) Candidiasis of genitalia in female (Acute) Cellulitis and abscess of other specified site (Acute) Folliculitis barbae (Acute) Screen for sexually transmitted diseases (Acute) Cervical cancer screening (Acute) Obesity, morbid, BMI 40.0-49.9 (Acute) Women's annual routine gynecological examination (Acute) Past Medical History Medical History Obesity (BMI 30-39.9) Smoker HGSIL (high grade squamous intraepithelial lesion) on Pap smear of cervix Family History Family History Paternal Grandfather Colon cancer Surgical History Surgical History History of colposcopy (~08/26/23) Hx of tubal ligation History of Problems with Anesthesia: No Social History Social History Household Members: None Housing: Apartment Alcohol intake: never Patient Tobacco Use Status: Current someday Tobacco user Tobacco use type: Cigarette Cigarette Packs Per Day: 0.5 Cigarettes Per Day: 5 e-Cigarette/Vaping Use: Never Used Second Hand Smoke Exposure: Yes Use of substances other than those prescribed or required for medical reasons: Yes Substance Use Frequency: Weekly Advance Directives: No Advance Directives Information Provided: Yes service: No Current occupational status: unemployed Cognitive needs: No Hearing needs: No Vision needs: No Meds Allergies Allergy/AdvReac Type Severity Reaction Status Date / Time Penicillins Allergy Unknown Unknown Verified 09/17/23 12:44 Home Medications ?Medication ?Instructions ?Recorded ?Confirmed ?Last Taken ?Type lisinopril 10 mg tablet 5 mg PO QAM 08/26/23 09/17/23 06/18/23 History metformin 1,000 mg tablet 1,000 mg PO BID 08/26/23 09/17/23 09/17/23 History Exam Airway Mallampati Class: II TM Dist: >3cm Neck ROM: Full Loose/Missing/Broken Teeth: No Heart: RRR Lungs: CTA Assessment and Plan Assessment Anesthesia Assessment: Anesthesia Plan Discussed Final Anesthetic Review History of Problems with Anesthesia: No NPO: Yes ASA Class: II Final Preanesthetic Review: Meds/Allgs Chart Reviewed, Consent Obtained/Reviewed and Anes Risks/Benef Reviewed Patient Risk: Low Procedure Risk: Low Anesthetic Plan Anesthetic Plan: GA Disposition: Standard PACU
[2023-09-17 12:42] VITALS: BMI 35.7
[2023-09-17 13:00] LABS: Glucose, Whole Blood 110 mg/dL (60-115)
--- NOTE | 2023-09-17 13:02 | MHC.SHP ---
Pre-Procedural Eval Section A - 24 Hr Update-Section A only Date of Service: 09/17/23 The patient is an INPATIENT: No Changes since office visit: No Cold of Flu in the past 2 weeks, No New Medical Problems, No Changes in Medication and No Patient answered all questions The patient has been examined within 24 hours of the surgical procedure. The History & Physical has been completed within 30 days and I have reviewed it.: Yes Section B - Complete if H&P > 30 days Chief Complaint: Moderate cervical dysplasia Allergies: Allergies Allergy/AdvReac Type Severity Reaction Status Date / Time Penicillins Allergy Unknown Unknown Verified 09/17/23 12:44 Plan Diagnosis/Plan: Unchanged I have reviewed the history and physical and performed a pertinent physical examination on my patient. No changes have occurred unless specified. Time Spent With Patient Time: Total time managing care of this patient today ____ minutes.
[2023-09-17 13:08] LABS: UPreg QC Valid YES; Urine Pregnancy NEGATIVE (NEGATIVE)
--- NOTE | 2023-09-17 15:05 | PM.OP ---
Brief Operative Note Date of Service: 09/17/23 Pre-op diagnosis: FLAQUITO 2 with positive ECC Post-op diagnosis: same Procedure: LEEP CONE with post CONE ECC Surgeon: Gonzales Do MD Anesthesia: GLMA and other (Paracervical block) Was an Digital Solution Architect used for this Procedure?: No Estimated blood loss (mL): 0 Pathology: other (Cervical cone, top-hat, Post cone ECC) Condition: stable Disposition: other (Home)
--- NOTE | 2023-09-17 15:06 | W.PM.OPN ---
Operative Note Operative Note Date of Service: 09/17/23 Narrative: Pre op diagnosis: FLAQUITO 2 with positive ECC Operation: Colposcopy, Loop electrical excision procedure cone, top hat endocervical excision, post cone ECC Postop diagnosis: the same Quantitative blood loss: 50 cc Surgeon: Gonzales Do MD, FACOG Rotary Screen Printing Machine Operator: None Pathology: Cervical cone, top-hat endo cervical excision, endo cervical curettage Complications: none Anesthesia: GLMA and Para cervical block Procedure: The patient was put in a dorsal lithotomy position, scrubbed and draped in the usual sterile fashion. A speculum was inserted inside the patient's vagina. The cervix is assessed using the colposcope with acetic acid , the lesions were seen, and at least 1 cm of the squamocolumnar junction was observed. 20 x 5 mm size loop was selected based upon the diameter of the lesion. Lugol solution was used to outline the lesions and area of the transformation zone order to be removed 10 cc of xylocaine with epinephrine were injected submucosally into the surface of the cervix (ectocervix) at the 3, 6, 9, and 12 o'clock positions. The electrosurgical generator is set at 50 barragan on blend 1. The loop is carefully passed simultaneously around and under the transformation zone, in order to ensure excising it making sure the lesion is at least 5 mm far from the specimen margins . The loop was allowed to glide through the cervix from one side to the other, allowing the cutting current to divide the tissue. Since ECC was positive endo cervical disease could be beyond the reach of the loop, additional tissue was excised from this area with a smaller-diameter loop , endo cervical top-hat excision was performed An endo cervical curettage is performed following completion of excision, and hemostasis is obtained with a Ball electrode or regular tip cautery. At the end, Monsel's solution was applied to the cone bed. The patient tolerated the procedure well and, all instruments were taken out of the patient vaginal cavity, and the patient was transferred to the PACU in stable condition.
[2023-09-17 15:14] VITALS: BP 114/68; PULSE 100; RESP 15; TEMP 36.7; O2SAT 95
[2023-09-17 15:19] VITALS: BP 136/86; PULSE 96; RESP 17; O2SAT 96
[2023-09-17 15:24] VITALS: BP 120/83; PULSE 92; RESP 17; O2SAT 96
[2023-09-17 15:29] VITALS: BP 136/75; PULSE 85; RESP 18; O2SAT 97
[2023-09-17] MEDS: oxyCODONE HCl Immed Release 5 MG TABLET PO (15:42)
[2023-09-17 15:44] VITALS: BP 140/95; PULSE 81; RESP 18; O2SAT 96
[2023-09-17 15:58] VITALS: BP 149/86; PULSE 84; RESP 18; TEMP 36.4; O2SAT 98
== END 2023-09-17 16:01 | disposition home or self-care (01) ==
PROVIDERS: PCP Internal Medicine; Visit Provider Obstetrics & Gynecology
PROC: 0UBC7ZZ Excision of Cervix, Via Natural or Artificial Opening (ICD-10-PCS; CPT 57522; principal; 2023-09-17 14:20)
DX: D06.0 Carcinoma in situ of endocervix (principal); E66.9 Obesity, unspecified; Z68.35 Body mass index [BMI] 35.0-35.9, adult; Z98.51 Tubal ligation status; R03.0 Elevated blood-pressure reading, without diagnosis of hypertension; E11.9 Type 2 diabetes mellitus without complications; Z79.84 Long term (current) use of oral hypoglycemic drugs; Z79.899 Other long term (current) drug therapy; Z88.0 Allergy status to penicillin; F17.210 Nicotine dependence, cigarettes, uncomplicated; Z56.0 Unemployment, unspecified
CPT/HCPCS: 57461; 81025; 82947; 88305; 88307; J1100; J1885; J2250; J2405; J2704; J3010

== ENCOUNTER → 2023-09-17 12:11 | Outpatient (BNV) | payer OTHER, SELFPAY | PROVIDERS: PCP Internal Medicine; Visit Provider Obstetrics & Gynecology | DX: N87.1 Moderate cervical dysplasia (principal) | CPT/HCPCS: 57461 ==

== ENCOUNTER 2023-09-19 08:42 | Outpatient (REF) | payer OTHER, SELFPAY ==
[2023-09-19 08:59] LABS: MANUAL DIFF FLAG NO
[2023-09-19 09:17] LABS: Basophils Percent Auto 0.3 % (0-2); Eosinophils Absolute Auto 0.1 X10*3/uL (0.0-0.4); Eosinophils Percent Auto 0.7 % (0-4); Hemoglobin 11.2 g/dl (12.0-16.0); Imm Gran Abs Auto 0.03 X10*3/uL (0.00-0.03); Imm Gran Pct Auto 0.3 % (0.0-0.4); Lymphocytes Absolute Auto 3.5 X10*3/uL (1.2-4.9); Lymphocytes Percent Auto 39.7 % (20-40); Mean Corpuscular HGB Conc 31.1 g/dl (31.0-35.0); Mean Corpuscular Hemoglobin 26.9 pg (27.0-33.0); Mean Corpuscular Volume 86.3 fL (80.0-98.0); Mean Platelet Volume 10.8 fL (9.4-12.3); Monocytes Absolute Auto 0.3 X10*3/uL (0.1-1.2); Monocytes Percent Auto 3.7 % (2-11); Neutrophils Absolute Auto 4.8 x10*3/uL (2.0-8.3); Neutrophils Percent Auto 55.3 % (45-73); Platelet Count 231 X10*3/uL (160-400); Red Blood Count 4.17 X10*6/uL (4.20-5.50); Red Cell Distribution Width 16.8 % (11.0-16.0); White Blood Count 8.8 X10*3/uL (4.8-10.8)
[2023-09-19 09:24] LABS: Estimated Average Glucose 148 mg/dL; Hemoglobin A1c % 6.8 % (<6.0)
[2023-09-19 09:41] LABS: Appearance Urine Clear; Color Urine Yellow; Glucose Urine UA Negative (Negative); Leukocyte Esterase Urine Trace (Negative); Nitrite Urine Negative (Negative); UMIC TRIGGER UACC YES; Urine Blood Moderate (2+) (Negative); Urine Ketones Negative (Negative); Urine Protein Negative (Neg-Trace)
[2023-09-19 09:51] LABS: Alanine Aminotransferase 10 U/L (0-31); Albumin Level 3.7 g/dL (3.5-5.0); Alkaline Phosphatase 51 U/L (39-117); Anion Gap 8 (12-20); Aspartate Amino Transferase 12 U/L (5-31); Bilirubin Total 0.2 mg/dL (0.0-1.0); Blood Urea Nitrogen 10 mg/dL (9-16); Calcium 8.6 mg/dL (8.4-10.2); Carbon Dioxide 26 mmol/L (22-29); Chloride 110 mmol/L (96-108); Cholesterol 171 mg/dL (<200); Estimated Glomerular Filt Rate > 60; Glucose Fasting 117 mg/dL (60-99); HDL Cholesterol 35 mg/dL (>40); LDL Cholesterol Calculated 106 mg/dL (<100); Sodium 140 mmol/L (135-145); Triglycerides 151 mg/dL (<150)
[2023-09-19 09:58] LABS: Bacteria Urine 1+ (None Seen); Creatinine Urine 140.93 mg/dL; Hyaline Casts Urine 0-2 /LPF (0-2); Microalbum/Creatinine Ratio Ur 21.2 ug/mg cr (<30); RBC Urine 0-2 /HPF (0-2); WBC Urine 0-5 /HPF (0-5)
[2023-09-19 10:11] LABS: TSH reflex Free T4 1.77 uIU/mL (0.32-4.0); Vitamin D 25-OH Total 17.5 ng/mL (>30)
== END 2023-09-19 08:43 | disposition home or self-care (01) ==
LOC: HO.LAB 08:42
PROVIDERS: Visit Provider Internal Medicine
DX: E78.00 Pure hypercholesterolemia, unspecified (principal); E11.9 Type 2 diabetes mellitus without complications; D64.9 Anemia, unspecified; E55.9 Vitamin D deficiency, unspecified
CPT/HCPCS: 36415; 80053; 80061; 81001; 82043; 82306; 82570; 83036; 84443; 85025

== ENCOUNTER 2023-09-23 15:01 | Outpatient (REF) | payer OTHER, SELFPAY ==
[2023-09-23 15:49] LABS: Hematocrit 36.5 % (37.0-47.0); Hemoglobin 11.7 g/dl (12.0-16.0); Mean Corpuscular HGB Conc 32.1 g/dl (31.0-35.0); Mean Corpuscular Volume 84.3 fL (80.0-98.0); Mean Platelet Volume 11.8 fL (9.4-12.3); Platelet Count 286 X10*3/uL (160-400); Red Blood Count 4.33 X10*6/uL (4.20-5.50); Red Cell Distribution Width 16.6 % (11.0-16.0); White Blood Count 9.5 X10*3/uL (4.8-10.8)
[2023-09-23 18:30] LABS: Appearance Urine Clear; Color Urine Yellow; Glucose Urine UA Negative (Negative); Leukocyte Esterase Urine Trace (Negative); Nitrite Urine Negative (Negative); PH 5.5 (5.0-9.0); UMIC TRIGGER UACC YES; Urine Blood Moderate (2+) (Negative); Urine Ketones Negative (Negative); Urine Protein Negative (Neg-Trace)
[2023-09-23 18:34] LABS: Bacteria Urine Trace (None Seen); Hyaline Casts Urine 0-2 /LPF (0-2); RBC Urine >20 /HPF (0-2); Squamous Epithelial Cell Urine 0-2 /HPF (0-2); WBC Urine 0-5 /HPF (0-5)
== END 2023-09-23 15:02 | disposition home or self-care (01) ==
LOC: HO.LAB 15:01
PROVIDERS: PCP Internal Medicine; Visit Provider Obstetrics & Gynecology
DX: N73.0 Acute parametritis and pelvic cellulitis (principal); N93.9 Abnormal uterine and vaginal bleeding, unspecified
CPT/HCPCS: 36415; 81001; 81025; 85027; 99212

== ENCOUNTER 2023-09-23 15:19 | Outpatient (AMB) | payer OTHER, SELFPAY ==
--- NOTE | 2023-09-23 15:29 | MHC.OFFVIS ---
Vital Signs 09/23/23 15:36 Temp 97.6 F Intake Visit Reasons: vag bleeding Bricklayer Tender Required: Yes Bricklayer Tender Language: Records Clerk Name: Danuta GRUBBS Information Interpreted: non-clinical & clinical Linoleum Layer Helper: Linoleum Layer Helper Present (Danuta GRUBBS) Accompanied by: Daughter Allergies Penicillins Allergy (Unknown, Verified 09/23/23 15:37) Unknown HPI Comments Details: Presenting postop day 6 complaining of vaginal bleeding since the LEEP cone with post cone ECC . No nausea or vomiting, no urinary or GI symptoms, no fever or chills CBC done [facility]736.5 [facility] Medical History Obesity (BMI 30-39.9) Smoker HGSIL (high grade squamous intraepithelial lesion) on Pap smear of cervix Surgical History History of colposcopy (~08/26/23) Hx of tubal ligation Family History Paternal Grandfather Colon cancer Social History Household Members: None Housing: Apartment Alcohol intake: never Patient Tobacco Use Status: Current someday Tobacco user Tobacco use type: Cigarette Cigarette Packs Per Day: 0.5 Cigarettes Per Day: 5 e-Cigarette/Vaping Use: Never Used Second Hand Smoke Exposure: Yes service: No Current occupational status: unemployed Cognitive needs: No Hearing needs: No Vision needs: No Female Reproductive History Menstrual Age of Menarche: 11 Review of Systems Const All systems reviewed & are unremarkable except as noted in HPI and below Physical Exam Vital Signs: Last Vital Signs Temp 97.6 F 09/23/23 15:36 GI Inspection: Yes normal to inspection Palpation (GI): Soft to palpation, Tenderness to palpation present (GI) (Minimal suprapubic tenderness) and no guarding General: Yes no CVA tenderness External Female Exam: normal external appearance and normal appearance of the urethra Speculum Exam - Vagina: normal appearance of the vagina, normal palpation, no lesions and no masses Speculum Exam - Cervix: normal appearance of the cervix, normal palpation, no lesions, no masses, Cervical tenderness present and Other cervical findings present (Mild was in from the LEEP bed) Bimanual exam- vagina & uterus: normal bimanual exam, normal palpation, normal palpation, uterine shape normal, Cervical tenderness present, non-tender, cervical motion tenderness and Uterine tenderness Bimanual Exam- Adnexa, other: normal adnexae Back/Spine/Pelvis Back: no CVA tenderness Assessment & Plan Assessment & Plan (1) PID (acute pelvic inflammatory disease): Comment: Post LEEP cone Code(s): N73.0 - Acute parametritis and pelvic cellulitis Category: Medical Plan: H&H stat done today 11.36.5 Urine test done in the office was negative. Since the patient is allergic to penicillin Will treat with Levaquin 500 mg p.o. q.d. Flagyl 500 mg p.o. b.i.d. for 14 days. Instructions given the patient to call or go to emergency room in case of fever equal or above 100.4, persistent or worsening of her abdominal/pelvic pain, nausea or vomiting and to schedule a 3 day follow-up appointment (2) Vagina bleeding: Code(s): N93.9 - Abnormal uterine and vaginal bleeding, unspecified Category: Medical Plan: Monsel's solution applied to the bed of the LEEP, bleeding stopped Medications: New levofloxacin 500 mg PO DAILY 14 days 14 tabs 0RF metronidazole 500 mg PO BID 14 days 28 tabs 0RF Coding Level of Care Code Est Pt Level 3 (70452) Diagnoses PID (acute pelvic inflammatory disease) N73.0 Vagina bleeding N93.9
[2023-09-23 15:36] VITALS: TEMP 36.4
== END 2023-09-23 16:26 | disposition home or self-care (01) ==
LOC: HO.HWS 15:19
PROVIDERS: PCP Internal Medicine; Visit Provider Obstetrics & Gynecology
DX: N73.0 Acute parametritis and pelvic cellulitis (principal); N93.9 Abnormal uterine and vaginal bleeding, unspecified; Z32.02 Encounter for pregnancy test, result negative
CPT/HCPCS: 99213

== ENCOUNTER 2023-10-03 14:12 | Outpatient (AMB) | payer OTHER, SELFPAY ==
--- NOTE | 2023-10-03 14:14 | MHC.OFFVIS ---
Vital Signs 10/03/23 14:17 Height 5 ft 2 in Weight 218 lb BMI 39.9 BP 120/76 Intake Visit Reasons: post op Registered Vascular Technologist (Rvt) Required: Yes Registered Vascular Technologist (Rvt) Language: Home Care Administrator Name: Danuta GRUBBS Information Interpreted: non-clinical & clinical Manager Athletics: Manager Athletics Present Accompanied by: Daughter Allergies Penicillins Allergy (Unknown, Verified 10/03/23 14:18) Unknown Is last menstrual period known: Yes Last menstrual period: 03/24/20 Post menopausal: No Patient : No Do you need a note to return to daycare/school/sports/work: Yes (for surgery on saturday) HPI Comments Details: The patient is presenting for follow-up post LEEP cone with post cone ECC. The patient has no complaints. The pathology showed the following: A. Cervix, conization: -High grade squamous intraepithelial lesion (moderate and focal severe dysplasia, FLAQUITO II and III), involving endocervical glands. -Ectocervical margin: Free of dysplasia. -Endocervical margin: Positive for dysplasia. -Radial (deep stromal) margin: Free of dysplasia. B. Cervix, top-hat, conization: -High grade squamous intraepithelial lesion (moderate and focal severe dysplasia, FLAQUITO II and III), involving endocervical glands. -Ecto- and endocervical margins: Free of dysplasia. -Radial (deep stromal) margin: Free of dysplasia. C. Endocervix, post cone curettage: -Squamous and endocervical glandular mucosa, and fragments of lower uterine segment; negative for dysplasia. Comment: Focal low-grade squamous intraepithelial lesion (mild dysplasia, FLAQUITO 1), and biopsy site changes also noted [facility] Medical History Obesity (BMI 30-39.9) Smoker HGSIL (high grade squamous intraepithelial lesion) on Pap smear of cervix Surgical History History of colposcopy (~08/26/23) Hx of tubal ligation Family History Paternal Grandfather Colon cancer Social History Household Members: None Housing: Apartment Alcohol intake: never Patient Tobacco Use Status: Current someday Tobacco user Tobacco use type: Cigarette Cigarette Packs Per Day: 0.5 Cigarettes Per Day: 5 e-Cigarette/Vaping Use: Never Used Second Hand Smoke Exposure: Yes service: No Current occupational status: unemployed Cognitive needs: No Hearing needs: No Vision needs: No Female Reproductive History Menstrual Age of Menarche: 11 Date of last menstrual period: 03/24/20 Total pregnancies: 2 Full term: 2 Review of Systems Card Reports as per HPI and Reports no additional complaints Resp Reports as per HPI and Reports no additional complaints GI Reports as per HPI and Reports no additional complaints Reports as per HPI Physical Exam Vital Signs: Last Vital Signs BP 120/76 10/03/23 14:17 BMI result Body Mass Index 39.9 Const General: cooperative, healthy appearing and comfortable Resp Effort & Inspection: normal respiratory effort Auscultation: clear to auscultation bilaterally Percussion: percussion normal Cardio Palpation: normal PMI Rate: regular rate Rhythm: regular rhythm Heart sounds: no murmurs and no rubs Peripheral pulses: Peripheral pulses 2+ throughout GI Inspection: Yes normal to inspection Palpation (GI): Soft to palpation, nontender, no guarding, not rigid and No hepatosplenomegaly present Percussion: Yes normal to percussion Auscultation: normal bowel sounds Rectal Exam - Female: deferred Assessment & Plan Assessment & Plan (1) 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 Recurrence can occur years after treatment; Recommended repeat LEEP cone with post cone ECC. All the pros and cons and risks and benefits each were discussed with the patient and the patient decided to proceed with re-excision LEEP cone with post cone ECC Will proceed with LEEP cone was post cone ECC. Discussed with the patient the procedure, its benefits and risks including bleeding, infection, possible need for blood transfusion with all its risk ( HIV, syphilis, Hepatitis, anaphylaxis shock, others..), injury to bladder, rectum, possible need for hysterectomy, possible future negative impact on fertility including ( cervical stenosis, incompetence , increase risk for c section 2ndary to cervical scarring and failure of dilatation). Also discussed the patient options of anesthesia either paracervical block versus IV sedation/MAC, prefers to proceed with IV sedation/MAC. All questions answered, the patient verbalized understanding and signed the consent. Coding Level of Care Code Est Pt Level 3 (52482) Diagnoses FLAQUITO III (cervical intraepithelial neoplasia grade III) with severe dysplasia D06.9
[2023-10-03 14:17] VITALS: BP 120/76; BMI 39.9
== END 2023-10-03 14:35 | disposition home or self-care (01) ==
LOC: HO.HWS 14:12
PROVIDERS: PCP Internal Medicine; Visit Provider Obstetrics & Gynecology
DX: D06.9 Carcinoma in situ of cervix, unspecified (principal)
CPT/HCPCS: 99213

== ENCOUNTER → 2023-10-03 14:12 | Outpatient (BNVA) | payer OTHER, SELFPAY | PROVIDERS: PCP Internal Medicine; Visit Provider Obstetrics & Gynecology | DX: D06.9 Carcinoma in situ of cervix, unspecified (principal) | CPT/HCPCS: 99212 ==

== ENCOUNTER 2023-11-01 09:33 | Day surgery (SDC) | payer OTHER, SELFPAY ==
--- NOTE | 2023-10-30 13:36 | HO.ANESPROP2 ---
Documented by User: Kerry Carrillo NP 10/30/23 13:41 HPI - Anesthesia Eval Consult details Narrative: 32yo F for LEEP,poss loop electric excision,poss loop electrical,cone and post endocervical curettage s/p same 08/2023 with GA-LMA 4 PMFSH Active Problems Active Problems: All Active Problems FLAQUITO III (cervical intraepithelial neoplasia grade III) with severe dysplasia (Acute) PID (acute pelvic inflammatory disease) (Acute) Vagina bleeding (Acute) FLAQUITO II (cervical intraepithelial neoplasia II) (Acute) Obesity (BMI 30-39.9) (Acute) Smoker (Acute) HGSIL (high grade squamous intraepithelial lesion) on Pap smear of cervix (Acute) Lesion of finger (Acute) Elevated blood-pressure reading without diagnosis of hypertension (Acute) Hyperglycemia (Acute) Skin lesions, generalized (Acute) Elevated blood pressure reading (Acute) Diabetes (Acute) Candidiasis of genitalia in female (Acute) Cellulitis and abscess of other specified site (Acute) Folliculitis barbae (Acute) Screen for sexually transmitted diseases (Acute) Cervical cancer screening (Acute) Obesity, morbid, BMI 40.0-49.9 (Acute) Women's annual routine gynecological examination (Acute) Past Medical History Medical History (Updated 10/30/23 @ 14:09 by Delmy Gonzalez RN) Diabetes Obesity (BMI 30-39.9) Smoker HGSIL (high grade squamous intraepithelial lesion) on Pap smear of cervix Family History Family History Paternal Grandfather Colon cancer Surgical History Surgical History History of loop electrical excision procedure (LEEP) History of colposcopy (~08/26/23) Hx of tubal ligation History of Problems with Anesthesia: No Social History Social History Household Members: None Housing: Apartment Alcohol intake: never Patient Tobacco Use Status: Current everyday Tobacco user Tobacco use type: Cigarette Cigarette Packs Per Day: 0.5 Cigarettes Per Day: 5 Years Smoked: 7 Smoked in Last 30 Days: Yes e-Cigarette/Vaping Use: Never Used Second Hand Smoke Exposure: Yes Use of substances other than those prescribed or required for medical reasons: No Are you DNR?: No Advance Directives: No Advance Directives Information Provided: Yes service: No Current occupational status: unemployed Cognitive needs: No Hearing needs: No Vision needs: No Meds Allergies Allergy/AdvReac Type Severity Reaction Status Date / Time Penicillins Allergy Intermediate Hives Verified 11/01/23 10:25 Exam Pertinent Lab Results Pertinent Lab Results: Laboratory Tests 09/23/23 15:10 WBC 9.5 Hgb 11.7 L Hct 36.5 L Plt Count 286 Assessment and Plan Assessment Anesthesia Assessment: Chart Reviewed Final Anesthetic Review History of Problems with Anesthesia: No Documented by User: Francisco Rivas MD 11/01/23 11:15 PMFSH Past Medical History Medical History (Updated 10/30/23 @ 14:09 by Delmy Gonzalez RN) Diabetes Obesity (BMI 30-39.9) Smoker HGSIL (high grade squamous intraepithelial lesion) on Pap smear of cervix Patient : No Family History Family History Paternal Grandfather Colon cancer Family history of problems with anesthesia: No Surgical History Surgical History History of loop electrical excision procedure (LEEP) History of colposcopy (~08/26/23) Hx of tubal ligation Social History Social History Household Members: None Housing: Apartment Alcohol intake: never Patient Tobacco Use Status: Current everyday Tobacco user Tobacco use type: Cigarette Cigarette Packs Per Day: 0.5 Cigarettes Per Day: 5 Years Smoked: 7 Smoked in Last 30 Days: Yes e-Cigarette/Vaping Use: Never Used Second Hand Smoke Exposure: Yes Use of substances other than those prescribed or required for medical reasons: No Are you DNR?: No Advance Directives: No Advance Directives Information Provided: Yes service: No Current occupational status: unemployed Cognitive needs: No Hearing needs: No Vision needs: No Meds Allergies Allergy/AdvReac Type Severity Reaction Status Date / Time Penicillins Allergy Intermediate Hives Verified 11/01/23 10:25 Exam Airway Mallampati Class: II TM Dist: <=3cm Neck ROM: Full Loose/Missing/Broken Teeth: No Heart: ok Lungs: ok Assessment and Plan Assessment Anesthesia Assessment: Anesthesia Plan Discussed Final Anesthetic Review Family History of Problems with Anesthesia: No NPO: Yes ASA Class: II and III Final Preanesthetic Review: No Changes in Pt Med Stat, Meds/Allgs Chart Reviewed, Consent Obtained/Reviewed and Anes Risks/Benef Reviewed Patient Risk: Intermediate Procedure Risk: Low Anesthetic Plan Anesthetic Plan: GA and Agree w/ Assess. and Plan Disposition: Standard PACU
[2023-10-30 14:05] VITALS: BMI 39.9
[2023-11-01 10:16] VITALS: BP 125/90; PULSE 89; RESP 16; TEMP 37.4; O2SAT 99
[2023-11-01 10:29] VITALS: BMI 37.6
[2023-11-01 10:32] LABS: UPreg QC Valid YES; Urine Pregnancy NEGATIVE (NEGATIVE)
--- NOTE | 2023-11-01 10:52 | MHC.SHP ---
Pre-Procedural Eval Section A - 24 Hr Update-Section A only Date of Service: 11/01/23 Section B - Complete if H&P > 30 days Chief Complaint: Carcinoma in situ of cervix, Allergies: Allergies Allergy/AdvReac Type Severity Reaction Status Date / Time Penicillins Allergy Intermediate Hives Verified 11/01/23 10:25 Plan I have reviewed the history and physical and performed a pertinent physical examination on my patient. No changes have occurred unless specified. Time Spent With Patient Time: Total time managing care of this patient today ____ minutes.
[2023-11-01] MEDS: Lactated Ringers 1,000 ML 100 ML IVCONT (10:53)
--- NOTE | 2023-11-01 11:41 | PM.OP ---
Brief Operative Note Date of Service: 11/01/23 Pre-op diagnosis: FLAQUITO 2-3 cervical margins on previous LEEP cone Post-op diagnosis: same Procedure: LEEP CONE, top-hat excision with post CONE ECC Surgeon: Gonzales Do MD Anesthesia: GLMA and other (Paracervical block) Was an Oil And Gas Exploration Technician used for this Procedure?: No Estimated blood loss (mL): 0 Pathology: other (Cervical cone, top-hat, Post cone ECC) Condition: stable Disposition: other (Home)
--- NOTE | 2023-11-01 11:42 | W.PM.OPN ---
Operative Note Operative Note Date of Service: 11/01/23 Narrative: Pre op diagnosis: CIN2-3 with positive endocervical margin on previous LEEP cone Operation: Colposcopy, Loop electrical excision procedure cone, top hat endocervical excision, post cone ECC Postop diagnosis: the same Quantitative blood loss: 50 cc Surgeon: oGnzales Do MD, FACOG Catering Truck Driver: None Pathology: Cervical cone, top-hat endo cervical excision, endo cervical curettage Complications: none Anesthesia: GLMA and Para cervical block Procedure: The patient was put in a dorsal lithotomy position, scrubbed and draped in the usual sterile fashion. A speculum was inserted inside the patient's vagina. The cervix is assessed using the colposcope with acetic acid , the lesions were seen, and at least 1 cm of the squamocolumnar junction was observed. 20 x 5 mm size loop was selected based upon the diameter of the lesion. Lugol solution was used to outline the lesions and area of the transformation zone order to be removed 10 cc of xylocaine with epinephrine were injected submucosally into the surface of the cervix (ectocervix) at the 3, 6, 9, and 12 o'clock positions. The electrosurgical generator is set at 30 to 40 barragan on blend 1. The loop is carefully passed simultaneously around and under the transformation zone, in order to ensure excising it making sure the lesion is at least 5 mm far from the specimen margins . The loop was allowed to glide through the cervix from one side to the other, allowing the cutting current to divide the tissue. Since previous top-hat excision and previous endocervical margins were positive endo cervical disease could be beyond the reach of the loop, additional tissue was excised from this area with a smaller-diameter loop , endo cervical top-hat excision was performed An endo cervical curettage is performed following completion of excision, and hemostasis is obtained with a Ball electrode or regular tip cautery. At the end, Monsel's solution was applied to the cone bed. The patient tolerated the procedure well and, all instruments were taken out of the patient vaginal cavity, and the patient was transferred to the PACU in stable condition.
[2023-11-01 11:50] VITALS: BP 132/84; PULSE 87; RESP 18; TEMP 37.2; O2SAT 95
[2023-11-01 11:55] VITALS: BP 119/80; PULSE 85; RESP 17; O2SAT 96
[2023-11-01 12:00] VITALS: BP 124/78; PULSE 102; RESP 18; O2SAT 96
[2023-11-01 12:05] VITALS: BP 113/83; PULSE 100; RESP 17; O2SAT 97
[2023-11-01 12:05] LABS: Glucose, Whole Blood 117 mg/dL (60-115)
[2023-11-01] MEDS: Acetaminophen 325 MG TABLET 650 MG PO (12:20)
[2023-11-01 12:24] VITALS: BP 131/80; PULSE 79; RESP 18; TEMP 36.1; O2SAT 98
== END 2023-11-01 11:45 | disposition home or self-care (01) ==
PROVIDERS: PCP Internal Medicine; Visit Provider Obstetrics & Gynecology
PROC: 0UBC7ZZ Excision of Cervix, Via Natural or Artificial Opening (ICD-10-PCS; CPT 57522; principal; 2023-11-01 11:30)
DX: D06.9 Carcinoma in situ of cervix, unspecified (principal); Z88.0 Allergy status to penicillin
CPT/HCPCS: 57461; 81025; 82947; 88305; 88307; J1885; J2405; J2704; J3010

== ENCOUNTER → 2023-11-01 09:33 | Outpatient (BNV) | payer OTHER, SELFPAY | PROVIDERS: PCP Internal Medicine; Visit Provider Obstetrics & Gynecology | DX: D06.9 Carcinoma in situ of cervix, unspecified (principal) | CPT/HCPCS: 57461 ==

== ENCOUNTER 2023-11-14 15:19 | Outpatient (AMB) | payer OTHER, SELFPAY ==
[2023-11-14 15:23] VITALS: BP 126/74
--- NOTE | 2023-11-14 15:23 | MHC.OFFVIS ---
Vital Signs 11/14/23 15:23 BP 126/74 Blood Pressure Location Lt brachial Position Sitting Intake Visit Reasons: post op Allergies Penicillins Allergy (Intermediate, Verified 11/14/23 15:24) Hives HPI Comments Details: The patient is presenting for follow-up post LEEP cone with top-hat excision and post cone ECC. The patient has no complaints. The patient had FLAQUITO 2-3 status post LEEP cone with post cone ECC, pathology showed positive margins, positive top-hat excision with negative margins and negative post cone ECC, after counseling the patient was different options of treatment the patient decided to proceed with repeat LEEP cone with post cone ECC and top-hat excision which was done. The pathology showed the following: A. Cervix, conization: -Squamous and endocervical glandular mucosa; negative for dysplasia. B. Cervix, top-hat, conization: -Squamous and endocervical glandular mucosa with focal biopsy site changes; negative for dysplasia. C. Endocervix, post cone curettage: -Squamous and endocervical glandular mucosa with reactive and metaplastic changes; negative for dysplasia [facility] Medical History Diabetes Obesity (BMI 30-39.9) Smoker HGSIL (high grade squamous intraepithelial lesion) on Pap smear of cervix Surgical History History of loop electrical excision procedure (LEEP) History of colposcopy (~08/26/23) Hx of tubal ligation Family History Paternal Grandfather Colon cancer Social History Household Members: None Housing: Apartment Alcohol intake: never Patient Tobacco Use Status: Current everyday Tobacco user Tobacco use type: Cigarette Cigarette Packs Per Day: 0.5 Cigarettes Per Day: 5 Years Smoked: 7 e-Cigarette/Vaping Use: Never Used Second Hand Smoke Exposure: Yes service: No Current occupational status: unemployed Cognitive needs: No Hearing needs: No Vision needs: No Female Reproductive History Menstrual Age of Menarche: 11 Review of Systems Const All systems reviewed & are unremarkable except as noted in HPI and below Reports as per HPI and Reports no additional complaints GI Reports no additional complaints Reports no additional complaints Assessment & Plan Assessment & Plan (1) 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 Cone with post cone ECC Instructions given to the patient to schedule an HPV based screening in 6 months, if normal then co testing Q year x 3 , if wnl cotest q3 x 25 years check the results and treat accordingly. All questions answered patient verbalized understanding. 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
== END 2023-11-14 15:53 | disposition home or self-care (01) ==
LOC: HO.HWS 15:19
PROVIDERS: PCP Internal Medicine; Visit Provider Obstetrics & Gynecology
DX: D06.9 Carcinoma in situ of cervix, unspecified (principal)
CPT/HCPCS: 99213

== ENCOUNTER → 2023-11-14 15:19 | Outpatient (BNVA) | payer OTHER, SELFPAY | PROVIDERS: PCP Internal Medicine; Visit Provider Obstetrics & Gynecology | DX: D06.9 Carcinoma in situ of cervix, unspecified (principal) | CPT/HCPCS: 99212 ==

== ENCOUNTER 2023-12-02 09:01 | Outpatient (AMB) | payer OTHER, SELFPAY ==
--- NOTE | 2023-12-02 09:04 | MHC.PC.OV ---
Vital Signs 12/02/23 09:05 Height 5 ft 2 in Weight 202 lb BMI 36.9 BP 122/70 Blood Pressure Location Lt brachial Position Sitting Pulse 88 Pulse Source Pulse Oximeter Pulse Oximetry (%) 98 Oxygen Delivery Method Room Air Intake Visit Reasons: DM, HTN Intake Note: Patient is here to follow up on HTN, DM. Quality Consultant Required: Yes Quality Consultant Language: Lead Painter Name: Jazmine [phone]) Information Interpreted: non-clinical & clinical Electronic Page Makeup System Operator: Not Required per policy Accompanied by: Self / Same As Patient Allergies Penicillins Allergy (Intermediate, Verified 12/02/23 09:24) Hives Medication List - Last Reconciled 12/02/23 by Dakota Wilkins MD cholecalciferol (vitamin D3) 50 mcg PO DAILY 90 days lisinopril 5 mg PO QAM 30 days metformin 1,000 mg PO BID 30 days Tobacco use date assessed: 12/02/23 Dental Screening Dental Screen Date: 08/26/23 HPI DM, HTN HPI Details Patient comes in today for her follow up visit States that she currently feels okay She denies any headaches or dizziness Denies any chest pains, no SOB No nausea/vomiting, no abdominal pain No change in bowel habits noted States that the previous lesion on her fingertip has cleared up significantly with the Abx that we prescribed for her last time Adds that she has been experiencing on and off pain over her right lower back for the past week and that the pain often feels worse at night She does not recall any recent injury or trauma to her right lower back She had her follow up labs done a couple of months ago - to discuss her results [facility] Medical History (Updated 12/02/23 @ 09:47 by Dakota Wilkins MD) Mixed hyperlipidemia due to type 2 diabetes mellitus Vitamin D deficiency Diabetes mellitus Diabetes Obesity (BMI 30-39.9) Smoker HGSIL (high grade squamous intraepithelial lesion) on Pap smear of cervix Surgical History History of loop electrical excision procedure (LEEP) History of colposcopy (~08/26/23) Hx of tubal ligation Family History Paternal Grandfather Colon cancer Social History Household Members: None Housing: Apartment Alcohol intake: never Patient Tobacco Use Status: Current everyday Tobacco user Tobacco use type: Cigarette Cigarette Packs Per Day: 0.5 Cigarettes Per Day: 5 Years Smoked: 7 e-Cigarette/Vaping Use: Never Used Second Hand Smoke Exposure: Yes service: No Current occupational status: unemployed Cognitive needs: No Hearing needs: No Vision needs: No Female Reproductive History Menstrual Age of Menarche: 11 Questionnaire Thrive Questionnaire Date Thrive assessed: 08/26/23 JADE-7 AMB Questionnaire JADE-7 Date JADE - 7 assessed: 08/26/23 Source: Developed by Drs. Anthony Oakes, Kendy Ford, Alf Billings and colleagues, with an educational timoteo from [employer]. Review of Systems Const Denies chills, Denies fatigue, Denies fever(s) and Denies headache(s) ENT Denies dysphagia, Denies dizziness, Denies otalgia, Denies headache(s), Denies neck pain, Denies odynophagia and Denies sore throat Card Denies chest pain, Denies palpitations and Denies dyspnea Resp Denies cough and Denies dyspnea GI Denies abdominal pain, Denies constipation, Denies dysphagia, Denies heartburn, Denies diarrhea, Denies nausea, Denies odynophagia and Denies vomiting Denies difficulty voiding, Denies nocturia, Denies dysuria and Denies urinary urgency Musc Reports back pain (on and off over the right lower back - see HPI) and Denies neck pain Skin/Breast Details: (+) heavily calloused lesion on the tip of the left middle finger Denies rash Neuro Denies dizziness and Denies headache(s) Endo Denies fatigue and Denies palpitations Physical exam (Primary Care) Vital Signs: Last Vital Signs Pulse 88 12/02/23 09:05 BP 122/70 12/02/23 09:05 Pulse Ox 98 12/02/23 09:05 Oxygen Delivery Method Room Air 12/02/23 09:05 BMI result Body Mass Index 36.9 Tobacco/Smoking Status: Tobacco use Status Tobacco use date assessed 12/02/23 12/02/23 09:16 Patient Tobacco Use Status Current everyday Tobacco 12/02/23 09:16 Tobacco use type Cigarette 12/02/23 09:16 e-Cigarette/Vaping Use Never Used 12/02/23 09:16 Thrive Assessment: Date of Thrive Assessment Date Thrive assessed 08/26/23 12/02/23 09:16 Const General: no acute distress and alert HENMT Ears: TM's normal bilaterally and EAC's normal Throat: Yes posterior oropharynx normal and Yes tonsils normal (no TP congestion) Neck Neck: Yes no lymphadenopathy and Yes supple Thyroid: Thyroid normal Resp Auscultation: clear to auscultation bilaterally, no rales and no wheezes Cardio Rate: regular rate Rhythm: regular rhythm Heart sounds: no murmurs GI Palpation (GI): Soft to palpation and nontender Auscultation: normal bowel sounds General: Yes no CVA tenderness Back/Spine/Pelvis Back: no CVA tenderness Thoracic/Lumbar Spine: paraspinal muscle tenderness on the right in the upper lumbar and No lumbar spinal tenderness Skin Other: (+) thick, calloused, non-tender lesion on the tip of the left middle finger Rashes: no rashes Extrem General: Yes no clubbing, cyanosis or edema Results AMB Hemoglobin A1c AMB Hemoglobin A1c 6.7 % Last Edit by ROMIE Tariq on 12/02/23 09:19 Results Reviewed Results Reviewed: Laboratory Last Values Hgb A1c (Clinic) 6.7 % (4.0-6.0) H 12/02/23 09:04 Laboratory Tests 09/19/23 09/23/23 12/02/23 08:58 15:10 09:04 WBC 9.5 Hgb 11.7 L Hct 36.5 L Plt Count 286 Sodium 140 Potassium 4.0 Creatinine 0.66 Estimated GFR > 60 Fasting Glucose 117 H Hgb A1c (Clinic) 6.7 H Hemoglobin A1c % 6.8 H Calcium 8.6 AST 12 ALT 10 Triglycerides 151 H Cholesterol 171 LDL Cholesterol, Calc 106 H HDL Cholesterol 35 L 25-OH Vitamin D Total 17.5 L TSH 1.77 Ur Specific [place] 1.020 Urine Protein Negative Urine Glucose (UA) Negative Urine Blood Moderate (2+) H Urine Nitrite Negative Ur Leukocyte Esterase Trace H Assessment and Plan Assessment & Plan (1) Diabetes mellitus: Code(s): E11.9 - Type 2 diabetes mellitus without complications Qualifiers: Diabetes mellitus type: type 2 Diabetes mellitus group home insulin use: without maintenance porter use Diabetes mellitus complication status: with hyperglycemia Qualified Code(s): E11.65 - Type 2 diabetes mellitus with hyperglycemia Plan: Her in-office HgbA1c done today is at 6.7% (her HgbA1c was at 6.8% on her labs done a couple of months ago) - goal is at least <7.0% Have discussed with patient that with her 2 separate HgbA1c readings of over 6.4% recently, she does HAVE diabetes and not just borderline DM or IFG Reinforced diabetic diet She is instructed to continue taking her Metformin 500 mg BID Continue also on Lisinipril 5 mg QD for renoprotection Have offered to refer her to a roving department supervisor to help guide her further on her diet but she declined - states that she is aware of what she needs to do with regards to her diet at this time (2) Elevated blood-pressure reading without diagnosis of hypertension: Code(s): R03.0 - Elevated blood-pressure reading, without diagnosis of hypertension Plan: Her blood pressure again appears adequately controlled today at 122/70 mm She is currently on Lisinopril 5 mg QD but this is prescribed more for renoprotection as she is a diabetic rather than for high blood pressure Nonetheless, we have advised her to try to adhere to a low sodium diet as best as she can (3) Mixed hyperlipidemia due to type 2 diabetes mellitus: Code(s): E11.69 - Type 2 diabetes mellitus with other specified complication; E78.2 - Mixed hyperlipidemia Plan: Results of her labs done a couple of months ago reviewed and discussed with patient She is advised that her cholesterol levels are within the average (normal) range but as she is a diabetic, they should be much lower than the average recommended range Reinforced low cholesterol diet Will recheck her labs and fasting lipids in 3 months for follow up (4) Vitamin D deficiency: Code(s): E55.9 - Vitamin D deficiency, unspecified Plan: Continue Vitamin D3 2000 units QD (5) Right low back pain: Code(s): M54.50 - Low back pain, unspecified Qualifiers: Chronicity: acute Sciatica presence: without sciatica Qualified Code(s): M54.50 - Low back pain, unspecified Plan: Have advised patient that her recent recurrent sharp right lower back pain appears to be due to muscle spasms on her right lower back Will start her on Tizanidine 4 mg Q HS PRN Have advised her that she can also apply some warm compress over her right lower back PRN for symptomatic relief (6) HGSIL (high grade squamous intraepithelial lesion) on Pap smear of cervix: Code(s): R87.613 - High grade squamous intraepithelial lesion on cytologic smear of cervix (HGSIL) Plan: S/P colposcopy with Dr. Do a few months ago Follow up with gynecology as scheduled (7) Smoker: Code(s): F17.200 - Nicotine dependence, unspecified, uncomplicated Plan: Counseled again on smoking cessation (8) Obesity (BMI 30-39.9): Code(s): E66.9 - Obesity, unspecified Plan: Reinforced diet/exercise as tolerated/lose weight Plan Follow up in 3 months Orders: Orders AMB Hemoglobin A1c Today E11.9 - Type 2 diabetes mellitus without complications Complete Blood Count Auto Diff 3 Months D64.9 - Anemia, unspecified Comprehensive [place]. Panel Fast 3 Months E78.00 - Pure hypercholesterolemia, unspecified UA CC w/rflx Micro + Cult 3 Months R30.0 - Dysuria Vitamin D 25-OH Total 3 Months E55.9 - Vitamin D deficiency, unspecified Lipid Panel 3 Months E78.00 - Pure hypercholesterolemia, unspecified Microalbumin, Random (w Creat) 3 Months E11.9 - Type 2 diabetes mellitus without complications Hemoglobin A1c 3 Months E11.9 - Type 2 diabetes mellitus without complications TSH reflex Free T4 3 Months E78.00 - Pure hypercholesterolemia, unspecified Medications: New tizanidine Take only as needed 4 mg PO BEDTIME PRN 30 tabs 0RF right low back pain Coding Level of Care Code Est Pt Level 4 (74869) Diagnoses Type 2 diabetes mellitus with hyperglycemia, without long-term current use of insulin E11.65 Diabetes mellitus type: type 2 Diabetes mellitus maintenance porter insulin use: without group home use Diabetes mellitus complication status: with hyperglycemia Elevated blood-pressure reading without diagnosis of hypertension R03.0 Mixed hyperlipidemia due to type 2 diabetes mellitus E11.69; E78.2 Vitamin D deficiency E55.9 Acute right-sided low back pain without sciatica M54.50 Chronicity: acute Sciatica presence: without sciatica HGSIL (high grade squamous intraepithelial lesion) on Pap smear of cervix R87.613 Smoker F17.200 Obesity (BMI 30-39.9) E66.9
[2023-12-02 09:05] VITALS: BP 122/70; PULSE 88; O2SAT 98; BMI 36.9
== END 2023-12-02 09:42 | disposition home or self-care (01) ==
PROVIDERS: PCP Internal Medicine; Visit Provider Internal Medicine
DX: E11.65 Type 2 diabetes mellitus with hyperglycemia (principal); R03.0 Elevated blood-pressure reading, without diagnosis of hypertension; E78.2 Mixed hyperlipidemia; E55.9 Vitamin D deficiency, unspecified; M54.50 Low back pain, unspecified; R87.613 High grade squamous intraepithelial lesion on cytologic smear of cervix (HGSIL); F17.200 Nicotine dependence, unspecified, uncomplicated
CPT/HCPCS: 83036; 99214

== ENCOUNTER 2024-05-13 09:19 | Outpatient (AMB) | payer OTHER, SELFPAY ==
[2024-05-13 09:27] VITALS: BP 122/74; BMI 36.6
--- NOTE | 2024-05-13 09:27 | MHC.OFFVIS ---
Vital Signs 05/13/24 09:27 Height 5 ft 2 in Weight 200 lb BMI 36.6 BP 122/74 Intake Visit Reasons: co test Kosher Dietary Service Supervisor Required: Yes Kosher Dietary Service Supervisor Language: Supervisory Investigative Specialist Services: Kosher Dietary Service Supervisor Present (in person) Kosher Dietary Service Supervisor Name: Danuta GRUBBS Information Interpreted: non-clinical & clinical Software Engineer Advisor: Software Engineer Advisor Present (Danuta GRUBBS) Accompanied by: Self / Same As Patient Allergies Penicillins Allergy (Intermediate, Verified 05/13/24 09:34) Hives Is last menstrual period known: Yes Last menstrual period: 04/22/24 HPI Comments Details: Presenting for annual exam. No complaints. The patient is interested in STD screen Last Pap/HPV was high-grade SUNSHINE HPV positive, status post LEEP FLAQUITO 3 with positive margin followed by re-excision with negative pathology in 11/17 [facility] Medical History Mixed hyperlipidemia due to type 2 diabetes mellitus Vitamin D deficiency Diabetes mellitus Diabetes Obesity (BMI 30-39.9) Smoker HGSIL (high grade squamous intraepithelial lesion) on Pap smear of cervix Surgical History History of loop electrical excision procedure (LEEP) History of colposcopy (~08/26/23) Hx of tubal ligation Family History Paternal Grandfather Colon cancer Social History Household Members: None Housing: Apartment Alcohol intake: never Patient Tobacco Use Status: Current everyday Tobacco user Tobacco use type: Cigarette Cigarette Packs Per Day: 0.5 Cigarettes Per Day: 5 Years Smoked: 7 e-Cigarette/Vaping Use: Never Used Second Hand Smoke Exposure: Yes service: No Current occupational status: unemployed Cognitive needs: No Hearing needs: No Vision needs: No Female Reproductive History Menstrual Age of Menarche: 11 Date of last menstrual period: 04/22/24 Total pregnancies: 4 Full term: 4 Number of Living Children: 4 Date of last pap smear: 08/01/23 History of abnormal pap smear: Yes (HPV +) Review of Systems Const All systems reviewed & are unremarkable except as noted in HPI and below Card Reports as per HPI Resp Reports as per HPI GI Reports as per HPI and Reports no additional complaints Reports as per HPI Physical Exam Vital Signs: Last Vital Signs BP 122/74 05/13/24 09:27 BMI result Body Mass Index 36.6 Const General: cooperative, healthy appearing and comfortable Chest Chest palpation & inspection: normal inspection of the chest and normal palpation of entire chest wall Breast/axilla inspection: normal inspection of the breasts and normal inspection of the axillae Breast/axilla palpation: normal palpation of the breasts, normal palpation of the axillae and no axillary lymphadenopathy Resp Effort & Inspection: normal respiratory effort Auscultation: clear to auscultation bilaterally Percussion: percussion normal Cardio Palpation: normal PMI Rate: regular rate Rhythm: regular rhythm Heart sounds: no murmurs and no rubs Peripheral pulses: Peripheral pulses 2+ throughout GI Inspection: Yes normal to inspection Palpation (GI): Soft to palpation, nontender, no guarding, not rigid and No hepatosplenomegaly present Percussion: Yes normal to percussion Auscultation: normal bowel sounds Rectal Exam - Female: deferred General: Yes bladder normal to palpation External Female Exam: No lesion Speculum Exam - Vagina: normal appearance of the vagina, normal palpation, normal vaginal discharge and not erythematous Speculum Exam - Cervix: normal appearance of the cervix and normal palpation Bimanual exam- vagina & uterus: normal bimanual exam, normal palpation, uterine size normal, bladder normal to palpation, consistency normal and normal palpation Bimanual Exam- Adnexa, other: normal adnexae, no masses and no tenderness Assessment & Plan Assessment & Plan (1) Well woman exam: Comment: FLAQUITO 3 status post LEEP cone with re-excision in 11/17, negative pathology Code(s): Z01.419 - Encounter for gynecological examination (general) (routine) without abnormal findings Category: Medical Plan: Cotesting done. Counseled the patient about the recommended dietary allowance of 1000 mg of Calcium & 600 IU of vitamin D. The patient was instructed to perform monthly self-breast exams and to schedule an annual exam in a year; All questions answered and the patient verbalized understanding. Instructed the patient to schedule annual exam in a year (2) Screen for STD (sexually transmitted disease): Code(s): Z11.3 - Encounter for screening for infections with a predominantly sexual mode of transmission Category: Medical Plan: STD screening tests done includes: BV panel for trichomonas, GC/CT will send patient for serology std screening for HIV, RPR, Hep b s Ag, HepC Ab. Instructions given the patient to schedule a follow-up appointment for repeat serology screen in 6 months for possible false negatives. Orders: Orders CT NG by PCR Today Z01.419 - Encounter for gynecological examination (general) (routine) without abnormal findings HIV Ab/Ag Today Z20.2 - Contact with and (suspected) exposure to infections with a predominantly sexual mode of transmission Pap Smear Today Z01.419 - Encounter for gynecological examination (general) (routine) without abnormal findings Bacterial Vaginosis Panel Today Z01.419 - Encounter for gynecological examination (general) (routine) without abnormal findings HPV High risk Today Z01.419 - Encounter for gynecological examination (general) (routine) without abnormal findings Syphilis Screen Today Z20.2 - Contact with and (suspected) exposure to infections with a predominantly sexual mode of transmission Hepatitis C Antibody Today Z20.2 - Contact with and (suspected) exposure to infections with a predominantly sexual mode of transmission Hepatitis B Surface Antigen Today Z20.2 - Contact with and (suspected) exposure to infections with a predominantly sexual mode of transmission Coding Level of Care Code Est Pt Prev Care 18-39y(58116) Diagnoses Well woman exam Z01.419 Screen for STD (sexually transmitted disease) Z11.3
== END 2024-05-13 10:03 | disposition home or self-care (01) ==
PROVIDERS: PCP Internal Medicine; Visit Provider Obstetrics & Gynecology
DX: Z01.419 Encounter for gynecological examination (general) (routine) without abnormal findings (principal); Z11.3 Encounter for screening for infections with a predominantly sexual mode of transmission
CPT/HCPCS: 99395

== ENCOUNTER 2024-05-13 09:19 | Outpatient (REF) | payer OTHER, SELFPAY ==
[2024-05-13 11:44] LABS: Syphilis Screen Nonreactive (Nonreactive)
[2024-05-13 11:52] LABS: HBsAGNum1 0.35 S/CO (0.00-0.99); HIV AB/AG Nonreactive (Nonreactive); HIV Num 1 0.06 S/CO (0.00-0.99); Hepatitis B Surface Antigen Negative (Negative); ~HepC Num1 0.38 S/CO (0.00-0.79); ~Hepatitis C Antibody Nonreactive (Nonreactive)
[2024-05-13 18:01] LABS: Bacterial Vaginosis PCR POSITIVE (Negative); Candida Group PCR DETECTED (Not Detect); Candida glab krusei PCR NOT DETECTED (Not Detect); Trichomonas vaginalis PCR NOT DETECTED (Not Detect)
[2024-05-13 18:33] LABS: CT PCR NOT DETECTED (Not Detect.); NG PCR NOT DETECTED (Not Detect.)
[2024-05-14 10:52] LABS: HPV 16,18/45 See PAP report
== END 2024-05-13 09:20 | disposition home or self-care (01) ==
LOC: HO.LNP 09:19
PROVIDERS: PCP Internal Medicine; Visit Provider Obstetrics & Gynecology
DX: E11.65 Type 2 diabetes mellitus with hyperglycemia (principal); E11.69 Type 2 diabetes mellitus with other specified complication; E78.2 Mixed hyperlipidemia; E55.9 Vitamin D deficiency, unspecified; M54.50 Low back pain, unspecified; E66.9 Obesity, unspecified; Z68.36 Body mass index [BMI] 36.0-36.9, adult; Z79.84 Long term (current) use of oral hypoglycemic drugs; Z01.419 Encounter for gynecological examination (general) (routine) without abnormal findings; Z11.51 Encounter for screening for human papillomavirus (HPV); Z20.2 Contact with and (suspected) exposure to infections with a predominantly sexual mode of transmission
CPT/HCPCS: 0352U; 83036; 86780; 86803; 87340; 87389; 87491; 87591; 87624; 88175; 96127; 99212; 99395; 99459

== ENCOUNTER 2024-05-13 10:05 | Outpatient (REF) | payer OTHER, SELFPAY | END 2024-05-13 10:06 | disposition home or self-care (01) | LOC: HO.LAB 10:05 | PROVIDERS: PCP Internal Medicine; Visit Provider Obstetrics & Gynecology | DX: Z13.89 Encounter for screening for other disorder (principal) ==

== ENCOUNTER 2024-05-13 14:22 | Outpatient (AMB) | payer OTHER, SELFPAY ==
[2024-05-13 14:26] VITALS: BP 110/78; PULSE 100; O2SAT 99; BMI 36.9
--- NOTE | 2024-05-13 14:26 | MHC.PC.OV ---
Vital Signs 05/13/24 14:26 Height 5 ft 2 in Weight 201 lb 8 oz BMI 36.9 BP 110/78 Blood Pressure Location Lt brachial Position Sitting Pulse 100 Pulse Source Pulse Oximeter Pulse Oximetry (%) 99 Oxygen Delivery Method Room Air Intake Visit Reasons: DM Car Whacker Required: Yes Car Whacker Name: Juan Carlos/[id number] Information Interpreted: non-clinical & clinical Box Office Manager: Not Required per policy Accompanied by: Self / Same As Patient Allergies Penicillins Allergy (Intermediate, Verified 05/13/24 14:39) Hives Medication List - Last Reconciled 05/13/24 by JENNIFFER Dias cholecalciferol (vitamin D3) 50 mcg PO DAILY 90 days lisinopril 5 mg PO QAM metformin 1,000 mg PO BID tizanidine 4 mg PO BEDTIME PRN Tobacco use date assessed: 05/13/24 Dental Screening Dental Screen Date: 05/13/24 Did you have a dental visit in the last 12 months?: Yes Did you have a dental problem in the last 6 months where you did not have access to dental care?: No Was dental information given to patient?: Patient has dentist HPI DM HPI Details Patient is a 33-year-old female with significant medical history of mixed hyperlipidemia due to type 2 diabetes, vitamin-D deficiency, right low back pain and obesity. The patient is here for follow-up visit. The patient did not complete ordered blood work for this visit. However, she verbalized that she would get them done as soon as possible. The patient verbalized that she is feeling okay, and has no concerns at this time. She denies shortness of breath, chest pain, heart palpitation, change in bowel movement and stomach pain. The patient also denies any urinary symptoms. She reports that she has chronic lower back pain that is stable most days. She reports that every once in a while she has not take her muscle relaxer at night for her lower back pain. Patient also verbalized that she has not been taking her vitamin-D tablet consistently. [facility] Medical History Mixed hyperlipidemia due to type 2 diabetes mellitus Vitamin D deficiency Diabetes mellitus Diabetes Obesity (BMI 30-39.9) Smoker HGSIL (high grade squamous intraepithelial lesion) on Pap smear of cervix Surgical History History of loop electrical excision procedure (LEEP) History of colposcopy (~08/26/23) Hx of tubal ligation Family History Paternal Grandfather Colon cancer Social History Household Members: None Housing: Apartment Alcohol intake: never Patient Tobacco Use Status: Current everyday Tobacco user Tobacco use type: Cigarette Cigarette Packs Per Day: 0.5 Cigarettes Per Day: 5 Years Smoked: 7 e-Cigarette/Vaping Use: Never Used Second Hand Smoke Exposure: Yes service: No Current occupational status: unemployed Cognitive needs: No Hearing needs: No Vision needs: No Female Reproductive History Menstrual Age of Menarche: 11 Questionnaire PHQ-9 Over the last 2 weeks, how often have you been bothered by any of the following problems? 1. Little interest or pleasure in doing things: not at all 2. Feeling down, depressed, or hopeless: not at all 3. Trouble falling or staying asleep, or sleeping too much: not at all 4. Feeling tired or having little energy: not at all 5. Poor appetite or overeating: not at all 6. Feeling bad about yourself - or that you are a failure or have let yourself or your family down: not at all 7. Trouble concentrating on things, such as reading the newspaper or watching television: not at all 8. Moving or speaking so slowly that other people could have noticed. Or the opposite - being so fidgety or restless that you have been moving around a lot more than usual: not at all 9. Thoughts that you would be better off or of hurting yourself in some way: not at all Total score: 0 Depression Screening Interpretation: Negative Depression Screening Done: Yes 63714 - PHQ-9 Billing: Yes Source: Developed by Drs. Anthony Oakes, Kendy Ford, Alf Billings and colleagues, with an educational timoteo from [employer]. Thrive Questionnaire Date Thrive assessed: 05/13/24 I am a: Patient What is your living situation today?: I have a steady place to live Within the past 12 months, did the food you bought not last and you didn't have the money to get more?: Never true Within the past 12 months, did you worry whether your food would run out before you got money to buy more?: Never true Do you have trouble paying for medicines?: No Do you have trouble getting transportation to medical appointments?: No Do you have trouble paying your heating and electricity bill?: No Do you have trouble taking care of your child, family member or friend?: No Do you have trouble with day-to-day activities such as bathing, preparing meals, shopping, managing finances, etc.?: No Are you currently unemployed and looking for a job?: No Are you interested in more education?: No Please select the resources that you would like help with: None Currently or been in a relationship where the following occur: No concerns reported THRIVE Score: 0 AUDIT C Alcohol Use Questionnaire (AUDIT-C) 1. How often do you have a drink containing alcohol?: Monthly or less 2. How many drinks containing alcohol do you have on a typical day when you are drinking?: 1 or 2 3. How often do you have six or more drinks on one occasion?: Never Total Score: 1 Score Reviewed/Action Taken: Yes JADE-7 AMB Questionnaire JADE-7 Date JADE - 7 assessed: 05/13/24 Feeling nervous, anxious, or on edge: 0 = Not at all Not being able to stop or control worryin = Not at all Worrying too much about different things: 0 = Not at all Trouble relaxin = Not at all Being so restless that it is hard to sit still: 0 = Not at all Becoming easily annoyed or irritable: 0 = Not at all Feeling afraid as if something awful might happen: 0 = Not at all Total JADE-7 score (0-4 normal; 5-9 mild; 10-14 moderate; 15-21 severe): 0 Source: Developed by Drs. Anthony Oakes, Knedy Ford, Alf Billings and colleagues, with an educational timoteo from [employer]. JADE-7 Assessment Billing JADE-7 Assessment Tool: JADE-7 Assessment 76112 Review of Systems Const Details: Const Denies chills, Denies fatigue, Denies fever(s), Denies headache(s) and Denies weakness ENT Denies dizziness and Denies headache(s) Card Denies chest pain, Denies lightheadedness, Denies dyspnea and Denies other (Palpitations) Resp Denies cough, Denies dyspnea, Denies wheezing and Denies other ( shortness of breath) GI Denies abdominal pain, Denies melena, Denies hematochezia, Denies change in bowel habits, Denies dyspepsia and Denies nausea Denies hematuria and Denies dysuria Musc Denies abnormal gait, reports intermittent lower back pain, mostly on the right side, Denies numbness and Denies tingling Skin/Breast Denies rash, Denies unusual bruising and Denies wounds Neuro Denies abnormal gait, Denies dizziness, Denies headache(s), Denies memory loss, Denies numbness, Denies Sensory deficit (Neuro), Denies tingling and Denies weakness Psych Denies anxiety, Denies depression, Denies memory loss Endo Denies cold intolerance, Denies fatigue, Denies heat intolerance, Denies polydipsia and Denies polyuria Aller/Immun Denies wheezing Physical exam (Primary Care) Vital Signs: Last Vital Signs Pulse 100 05/13/24 14:26 BP 110/78 05/13/24 14:26 Pulse Ox 99 05/13/24 14:26 Oxygen Delivery Method Room Air 05/13/24 14:26 BMI result Body Mass Index 36.9 Tobacco/Smoking Status: Tobacco use Status Tobacco use date assessed 05/13/24 05/13/24 14:28 Patient Tobacco Use Status Current everyday Tobacco 05/13/24 14:28 Tobacco use type Cigarette 05/13/24 14:28 e-Cigarette/Vaping Use Never Used 05/13/24 14:28 PHQ-9: PHQ-9 Score PHQ-9: Total score 0 05/13/24 14:49 Depression Screening Interpretation: Negative Thrive Assessment: Date of Thrive Assessment Date Thrive assessed 05/13/24 05/13/24 14:28 Currently or been in a relationship where the following occur: No concerns reported Const Other: General: no acute distress and well developed Nutritional Appearance: well nourished Orientation/consciousness: patient oriented x3 HENMT Head: Yes normocephalic and Yes atraumatic Eyes General: appearance normal, both eyes and all related structures Pupils: Equal, round and reactive pupils present EOM: EOMs intact bilaterally Resp Effort & Inspection: normal respiratory effort Auscultation: clear to auscultation bilaterally Cardio Rate: regular rate Rhythm: regular rhythm Heart sounds: S1 normal heart sound present, S2 normal heart sound present, no gallops, no murmurs and no rubs GI Palpation (GI): No Abdominal aortic bruit present, Soft to palpation, nontender, No hepatosplenomegaly present and No Rebound tenderness present Auscultation: normal bowel sounds General: Yes no CVA tenderness Back/Spine/Pelvis Back: no CVA tenderness Thoracic/Lumbar Spine: paraspinal muscle tenderness on the right in the upper lumbar and No lumbar spinal tenderness Extrem General: Yes normal to inspection, No edema and No calf tenderness Skin General: warm and dry. Normal skin color. Normal skin turgor Lesions: no lesions Rashes: no rashes Trauma: no lacerations or abrasions Wounds: no wounds Nails: normal Neuro General: patient oriented x3, gait normal and no focal neuro deficit Cranial nerves: Yes Equal, round and reactive pupils present Cognition (Neuro): normal cognition Gait exam (Neuro): Normal gait present Sensory Exam: No Sensory deficit (Neuro) Psych Appearance: grossly normal Affect: normal affect Attitude: cooperative Thought process: Normal thought process present Results AMB Hemoglobin A1c AMB Hemoglobin A1c 7.2 % Last Edit by ROMIE Self on 05/13/24 14:46 Results Reviewed Results Reviewed: Laboratory Last Values Hgb A1c (Clinic) 7.2 % (4.0-6.0) H 05/13/24 14:45 Coding Level of Care Code Est Pt Level 4 (63815) Diagnoses Type 2 diabetes mellitus with hyperglycemia, without long-term current use of insulin E11.65 Diabetes mellitus complication status: with hyperglycemia Diabetes mellitus longterm insulin use: without long distance billing operator use Diabetes mellitus type: type 2 Mixed hyperlipidemia due to type 2 diabetes mellitus E11.69; E78.2 Vitamin D deficiency E55.9 Acute right-sided low back pain without sciatica M54.50 Chronicity: acute Sciatica presence: without sciatica Obesity (BMI 30-39.9) E66.9 Additional Codes JADE-7 Assessment Billing - JADE-7 Assessment Tool: JADE-7 Assessment 49109 ([id number]) PHQ-9 - 43250 - PHQ-9 Billing: Yes ([id number]) Assessment & Plan Assessment & Plan (1) Diabetes mellitus: Code(s): E11.9 - Type 2 diabetes mellitus without complications Category: Medical Qualifiers: Diabetes mellitus complication status: with hyperglycemia Diabetes mellitus longterm insulin use: without long distance billing operator use Diabetes mellitus type: type 2 Qualified Code(s): E11.65 - Type 2 diabetes mellitus with hyperglycemia Plan: Patient previous fasting glucose and A1c show that she is diabetic - her in-office HgbA1c done today is at 7.2% (HgbA1c was at 6.8% a few months ago) - goal is <7.0% Encourage patient to her blood work done as soon as possible for evaluation. Continue metformin 1000 mg b.i.d. for now The patient was encouraged not to walk barefoot and to check the bottom of her feet everyday. (2) Mixed hyperlipidemia due to type 2 diabetes mellitus: Code(s): E11.69 - Type 2 diabetes mellitus with other specified complication; E78.2 - Mixed hyperlipidemia Category: Medical Plan: Reinforced low-cholesterol diet/exercise as tolerated. Encouraged patient to get a blood work done as soon as possible. Lipid panel was ordered on previous visit. We will advise when lab is obtained. (3) Vitamin D deficiency: Code(s): E55.9 - Vitamin D deficiency, unspecified Category: Medical Plan: Reports that she has not been taking her vitamin-D tab consistently. Encouraged taken the vitamin D tablets as prescribed. Encouraged to get previously ordered blood work done for follow up (4) Right low back pain: Code(s): M54.50 - Low back pain, unspecified Category: Medical Qualifiers: Chronicity: acute Sciatica presence: without sciatica Qualified Code(s): M54.50 - Low back pain, unspecified Plan: Tizanidine 4 mg q.h.s. p.r.n. refilled Encouraged frequent stretches and warm compress to lower right back as needed (5) Obesity (BMI 30-39.9): Code(s): E66.9 - Obesity, unspecified Category: Medical Plan: Diet/exercise discussed in detail Encouraged to exercise for at least 30 minutes a day/5 days a week Healthy eating discussed. Encouraged to eat fruits/vegetables, protein-fish/baked chicken, and to avoid salty/fried foods, sweets, caffeine and carbohydrates. Encouraged to increase water intake 6-8 glasses a day Plan Follow up in 4 months Orders: Orders AMB Hemoglobin A1c 05/13/24 Z13.9 - Encounter for screening, unspecified Medications: Refilled tizanidine Take only as needed 4 mg PO BEDTIME PRN 30 tabs 0RF right low back pain metformin 1,000 mg PO BID 180 tabs 1RF lisinopril 5 mg PO QAM 90 tabs 1RF cholecalciferol (vitamin D3) 50 mcg PO DAILY 90 days 90 caps 3RF E55.9 - Vitamin D deficiency, unspecified
== END 2024-05-13 14:55 | disposition home or self-care (01) ==
PROVIDERS: PCP Internal Medicine
DX: Z13.9 Encounter for screening, unspecified (principal)

== ENCOUNTER 2024-05-14 08:53 | Outpatient (REF) | payer OTHER, SELFPAY ==
[2024-05-14 09:14] LABS: MANUAL DIFF FLAG NO
[2024-05-14 09:51] LABS: Basophils Percent Auto 0.3 % (0-2); Eosinophils Absolute Auto 0.1 X10*3/uL (0.0-0.4); Eosinophils Percent Auto 0.9 % (0-4); Hematocrit 34.6 % (37.0-47.0); Hemoglobin 11.1 g/dl (12.0-16.0); Imm Gran Abs Auto 0.02 X10*3/uL (0.00-0.03); Imm Gran Pct Auto 0.3 % (0.0-0.4); Lymphocytes Absolute Auto 2.1 X10*3/uL (1.2-4.9); Lymphocytes Percent Auto 32.7 % (20-40); Mean Corpuscular HGB Conc 32.1 g/dl (31.0-35.0); Mean Corpuscular Hemoglobin 25.9 pg (27.0-33.0); Mean Corpuscular Volume 80.8 fL (80.0-98.0); Monocytes Absolute Auto 0.3 X10*3/uL (0.1-1.2); Monocytes Percent Auto 4.1 % (2-11); Neutrophils Percent Auto 61.7 % (45-73); Platelet Count 241 X10*3/uL (160-400); Red Blood Count 4.28 X10*6/uL (4.20-5.50); Red Cell Distribution Width 15.7 % (11.0-16.0); White Blood Count 6.5 X10*3/uL (4.8-10.8)
[2024-05-14 09:55] LABS: Estimated Average Glucose 151 mg/dL; Hemoglobin A1C 144.4334 umol/L; Hemoglobin A1c % 6.9 % (<6.0); Total Hemoglobin (HGBA1C) 2759.7456 umol/L
[2024-05-14 10:12] LABS: Appearance Urine Cloudy; Color Urine Yellow; Glucose Urine UA Negative (Negative); Leukocyte Esterase Urine Trace (Negative); Nitrite Urine Negative (Negative); PH 5.5 (5.0-9.0); Specific Gravity - Urine >= 1.030 (1.005-1.025); UMIC TRIGGER UACC YES; Urine Blood Moderate (2+) (Negative); Urine Ketones Negative (Negative); Urine Protein Trace mg/dL (Neg-Trace)
[2024-05-14 10:28] LABS: Bacteria Urine 2+ (None Seen); Hyaline Casts Urine 0-2 /LPF (0-2); Squamous Epithelial Cell Urine >20 /HPF (0-2); WBC Urine 0-5 /HPF (0-5)
[2024-05-14 10:37] LABS: Creatinine Urine 183.38 mg/dL
[2024-05-14 10:43] LABS: Alanine Aminotransferase 12 U/L (0-31); Albumin Level 3.9 g/dL (3.5-5.0); Alkaline Phosphatase 49 U/L (39-117); Anion Gap 9 (12-20); Aspartate Amino Transferase 21 U/L (5-31); Bilirubin Total 0.5 mg/dL (0.0-1.0); Blood Urea Nitrogen 12 mg/dL (9-16); Calcium 8.6 mg/dL (8.4-10.2); Carbon Dioxide 23 mmol/L (22-29); Chloride 111 mmol/L (96-108); Cholesterol 177 mg/dL (<200); Estimated Glomerular Filt Rate > 60; Glucose Fasting 156 mg/dL (60-99); HDL Cholesterol 34 mg/dL (>40); LDL Cholesterol Calculated 114 mg/dL (<100); Potassium 3.9 mmol/L (3.3-5.1); Sodium 139 mmol/L (135-145); Total Protein 7.4 g/dL (6.5-8.0); Triglycerides 149 mg/dL (<150)
[2024-05-14 11:03] LABS: TSH reflex Free T4 2.02 uIU/mL (0.32-4.0); Vitamin D 25-OH Total 14.6 ng/mL (>30)
== END 2024-05-14 08:54 | disposition home or self-care (01) ==
LOC: HO.LAB 08:53
PROVIDERS: PCP Internal Medicine; Visit Provider Internal Medicine
DX: E55.9 Vitamin D deficiency, unspecified (principal); D64.9 Anemia, unspecified; E78.00 Pure hypercholesterolemia, unspecified; E11.9 Type 2 diabetes mellitus without complications
CPT/HCPCS: 36415; 80053; 80061; 81001; 82043; 82306; 82570; 83036; 84443; 85025

== ENCOUNTER 2024-06-05 10:17 | Outpatient (AMB) | payer OTHER, SELFPAY ==
--- NOTE | 2024-06-05 10:41 | A.OFFVIS_ITS ---
Intake Visit Reasons: Colposcopy Pyrometer Operator Required: Yes Pyrometer Operator Language: Computer Laboratory Technician Services: Pyrometer Operator Present (in person) Pyrometer Operator Name: ROMIE Waggoner Information Interpreted: non-clinical & clinical Career Transition Specialist: Career Transition Specialist Present (ROMIE Waggoner) Accompanied by: Self / Same As Patient Allergies Penicillins Allergy (Intermediate, Verified 06/05/24 10:42) Hives HPI Comments Details: Presenting for colposcopy. Pap smear was negative, HPV 16 positive, HPV high- risk in 18 negative [facility] Medical History Mixed hyperlipidemia due to type 2 diabetes mellitus Vitamin D deficiency Diabetes mellitus Diabetes Obesity (BMI 30-39.9) Smoker HGSIL (high grade squamous intraepithelial lesion) on Pap smear of cervix Surgical History History of loop electrical excision procedure (LEEP) History of colposcopy (~08/26/23) Hx of tubal ligation Family History Paternal Grandfather Colon cancer Social History Household Members: None Housing: Apartment Alcohol intake: never Patient Tobacco Use Status: Current everyday Tobacco user Tobacco use type: Cigarette Cigarette Packs Per Day: 0.5 Cigarettes Per Day: 5 Years Smoked: 7 e-Cigarette/Vaping Use: Never Used Second Hand Smoke Exposure: Yes service: No Current occupational status: unemployed Cognitive needs: No Hearing needs: No Vision needs: No Female Reproductive History Menstrual Age of Menarche: 11 Office Procedures Colposcopy Colposcopy: Pre-Procedure Counseling: Before beginning the procedure, I conducted comprehensive counseling with the patient. We thoroughly discussed the procedure itself, including its details, alternatives, and all associated risks. This included but not limited to the following complications such as bleeding, infection, and injury to the vagina, bladder, and vessels, as well as the potential need for transfusion with all its associated risks. Subsequently, the patient sign the consent. Pap smear result: Negative Pap smear/HPV 16 positive. Urine test in office = Negative Procedure: During the procedure, the following steps were performed: A speculum was inserted, and acetic acid was applied. Colposcopy was conducted, allowing visualization of the transformation zone. Acetowhite lesions were identified at the 6+7+9+12+3 o'clock position. Cervical biopsies were obtained from the 6+7+9+12+3 o'clock position, followed by an endocervical curettage (ECC). Vaginoscopy of the upper vagina revealed no evidence of aceto-white lesions. Hemostasis was achieved using Monsel solution, and the patient tolerated the procedure well. Post-Procedure Instructions: The patient was advised to promptly contact the office or the after hours answering service or go to the emergency room if experiencing a temperature exceeding 100.4?F, abdominal pain, nausea/vomiting, or bleeding. Additionally, the patient was instructed to abstain from vaginal intercourse and bathtub use. The patient confirmed understanding of these instructions. Discharge Instructions: The patient was instructed to schedule a follow-up appointment in 2 weeks for further evaluation and management. Please note that this note was generated using a voice recognition program, and errors may have occurred during pool cleaner. [id number] of cervix including upper vagina with biopsy and ECC Procedure code (CPT) selection complete Assessment & Plan Assessment & Plan (1) Cervical high risk HPV (human papillomavirus) test positive: Code(s): R87.810 - Cervical high risk human papillomavirus (HPV) DNA test positive Category: Medical Plan: Discussed with the patient the result of her HPV 16 positive, its significance, risk of progression, persistence, and regression. the false positive/negative rate of a Pap smear as a screening test in detecting cervical cancer and the indication for a diagnostic test -colposcopy, biopsy, endocervical curettage. Colpo/biopsy/ECC done see procedure note. The patient verbalized understanding and agreed with the plan, all questions answered. Orders: Orders AMB Colposcopy Today R87.810 - Cervical high risk human papillomavirus (HPV) DNA test positive Coding Level of Care Code Procedure Only Diagnoses Cervical high risk HPV (human papillomavirus) test positive R87.810 CPT Codes Colposcopy - CPT: 08557-Fwxhpxdit of cervix including upper vagina with biopsy and ECC ([id number])
== END 2024-06-05 10:59 | disposition home or self-care (01) ==
PROVIDERS: PCP Internal Medicine; Visit Provider Obstetrics & Gynecology
DX: R87.810 Cervical high risk human papillomavirus (HPV) DNA test positive (principal)
CPT/HCPCS: 57454

== ENCOUNTER 2024-06-05 10:17 | Outpatient (REF) | payer OTHER, SELFPAY | END 2024-06-05 10:18 | disposition home or self-care (01) | LOC: HO.LNP 10:17 | PROVIDERS: PCP Internal Medicine; Visit Provider Obstetrics & Gynecology | DX: R87.810 Cervical high risk human papillomavirus (HPV) DNA test positive (principal) | CPT/HCPCS: 57454; 88305 ==

== ENCOUNTER 2024-08-20 08:25 | Outpatient (AMB) | payer OTHER, SELFPAY ==
[2024-08-20 08:27] VITALS: BMI 36.8
--- NOTE | 2024-08-20 08:27 | MHC.OFFVIS ---
Vital Signs 08/20/24 08:27 Height 5 ft 2 in Weight 201 lb BMI 36.8 Intake Visit Reasons: Colpo Results Director Online Marketing Required: Yes Director Online Marketing Language: Nail Galvanizer Services: Director Online Marketing Present (in person) Director Online Marketing Name: Danuta GRUBBS Information Interpreted: non-clinical & clinical Accompanied by: Daughter Allergies Penicillins Allergy (Intermediate, Verified 08/20/24 08:28) Hives HPI Comments Details: Presenting post colpo for follow-up. The patient is doing well with no complaints. The pathology showed the following: A. Endocervix, curettage: - Inflamed cervical transformation zone mucosa with reactive changes. - Pseudohyphae and yeast forms consistent with Teresa species. B. Cervix, 3 o'clock, biopsy: Inflamed squamous and endocervical mucosa with reactive changes. C. Cervix, 6 o'clock, biopsy: Squamous mucosa within normal limits; no endocervical epithelium present. D. Cervix, 7 o'clock, biopsy: Mildly inflamed squamous mucosa with reactive changes; no endocervical epithelium present. E. Cervix, 9 o'clock, biopsy: Mildly inflamed squamous mucosa with reactive changes; no endocervical epithelium present. F. Cervix, 12 o'clock, biopsy: Squamous mucosa within normal limits; no endocervical epithelium present [facility] Medical History (Updated 08/20/24 @ 08:33 by Gonzales Do MD) Mixed hyperlipidemia due to type 2 diabetes mellitus Vitamin D deficiency Diabetes mellitus Diabetes Obesity (BMI 30-39.9) Smoker HGSIL (high grade squamous intraepithelial lesion) on Pap smear of cervix Surgical History History of loop electrical excision procedure (LEEP) History of colposcopy (~08/26/23) Hx of tubal ligation Family History Paternal Grandfather Colon cancer Social History Household Members: None Housing: Apartment Alcohol intake: never Patient Tobacco Use Status: Current everyday Tobacco user Tobacco use type: Cigarette Cigarette Packs Per Day: 0.5 Cigarettes Per Day: 5 Years Smoked: 7 e-Cigarette/Vaping Use: Never Used Second Hand Smoke Exposure: Yes service: No Current occupational status: unemployed Cognitive needs: No Hearing needs: No Vision needs: No Female Reproductive History Menstrual Age of Menarche: 11 Review of Systems Const All systems reviewed & are unremarkable except as noted in HPI and below Reports as per HPI and Reports no additional complaints GI Reports no additional complaints Reports no additional complaints Physical Exam Vital Signs: BMI result Body Mass Index 36.8 Assessment & Plan Assessment & Plan (1) HPV in female: Code(s): B97.7 - Papillomavirus as the cause of diseases classified elsewhere Category: Medical Plan: Discussed with the patient the pathology results of the colposcopy biopsies & endocervical curettage ( negative). Discussed with the patient the sensitivity specificity, positive and negative predictive value in detecting cervical cancer in addition discussed the regression, persistence and progression rates. Recommended co-testing in 12 months, if cytology and or HPV are abnormal will proceed was colposcopy biopsy and endocervical curettage. Instructions given to the patient to schedule a co test appointment in 1 year. All questions answered the patient verbalized understanding. Coding Level of Care Code Est Pt Level 3 (93065) Diagnoses HPV in female B97.7
== END 2024-08-20 08:36 | disposition home or self-care (01) ==
LOC: HO.HWS 08:25
PROVIDERS: PCP Internal Medicine; Visit Provider Obstetrics & Gynecology
DX: R87.810 Cervical high risk human papillomavirus (HPV) DNA test positive (principal)
CPT/HCPCS: 99213

== ENCOUNTER → 2024-08-20 08:25 | Outpatient (BNVA) | payer OTHER, SELFPAY | PROVIDERS: PCP Internal Medicine; Visit Provider Obstetrics & Gynecology | DX: A63.0 Anogenital (venereal) warts (principal); Z71.2 Person consulting for explanation of examination or test findings; B97.7 Papillomavirus as the cause of diseases classified elsewhere | CPT/HCPCS: 99212 ==

== ENCOUNTER 2024-08-21 10:03 | Outpatient (AMB) | payer OTHER, SELFPAY ==
[2024-08-21 10:26] VITALS: BP 124/82; PULSE 98; O2SAT 98; BMI 37.7
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
== END 2024-08-21 11:10 | disposition home or self-care (01) ==
LOC: HO.HMCH 10:04
PROVIDERS: PCP Internal Medicine; Visit Provider Internal Medicine
DX: M54.2 Cervicalgia (principal); M54.50 Low back pain, unspecified

== ENCOUNTER 2024-08-21 10:03 | Outpatient (REF) | payer OTHER, SELFPAY ==
--- NOTE | ~2024-08-21 | XR_ITS ---
EXAMINATION: XR LUMBOSACRAL SPINE CLINICAL INFORMATION: M54.50 - Low back pain, unspecified COMPARISON: None available. TECHNIQUE: Three views of the lumbosacral spine. FINDINGS: There is no scoliosis. There is a normal lordosis. There is no fracture, compression deformity, subluxation, or suspicious bone lesion. Disc spaces appear preserved. Facets are normally aligned. No significant facet arthrosis. The sacrum and SI joints appear normal. There is no soft tissue abnormality. XR/XR lumbar spine 2-3V IMPRESSION: Normal lumbar spine radiographs. Electronically signed by: Nagi Tucker MD 08/21/2024 03:08 PM EDT
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
== END 2024-08-21 10:04 | disposition home or self-care (01) ==
LOC: HO.XRAY 10:03
PROVIDERS: PCP Internal Medicine; Visit Provider Internal Medicine
DX: M54.2 Cervicalgia (principal); M54.50 Low back pain, unspecified
CPT/HCPCS: 72040; 72100; 96127; 99212

== ENCOUNTER → 2024-08-21 11:25 | Outpatient (BNV) | payer OTHER, SELFPAY | PROVIDERS: PCP Internal Medicine; Visit Provider Radiology Diagnostic Radiology | DX: M54.2 Cervicalgia (principal); M54.50 Low back pain, unspecified | CPT/HCPCS: 72040; 72100 ==

== ENCOUNTER 2024-08-25 11:19 | Emergency (ER) | payer OTHER, SELFPAY ==
[2024-08-25 11:51] VITALS: BP 126/79; PULSE 78; RESP 16; TEMP 36.8; O2SAT 99; BMI 38.2
--- NOTE | 2024-08-25 11:52 | ED_ITS ---
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 She reports no NSAID use and no GIB symptoms no fevers, pain improved now. She has been eating well. Her doctor started her on tizanidine but no relief. She has not had a GI doctor. No fevers reported. MD complaint: gastritis Onset (ago): day(s) (1) Location: abdomen Radiation: non-radiation Severity: moderate Quality: burning Pain Consistency: intermittent Relieving factors: none Exacerbating factors: eating Associated symptoms: nausea/vomiting Treatments prior to arrival: other Related Data Previous Rx's ?Medication ?Instructions ?Recorded cholecalciferol (vitamin D3) 50 50 mcg PO DAILY 90 days #90 caps 05/13/24 mcg (2,000 unit) capsule lisinopril 5 mg tablet 5 mg PO QAM #90 tabs 05/13/24 metformin 1,000 mg tablet 1,000 mg PO BID #180 tabs 05/13/24 tizanidine 4 mg tablet 4 mg PO TID PRN right low back 08/21/24 pain and neck pain #90 tabs ondansetron 4 mg disintegrating 4 mg PO Q8H PRN nausea and 08/25/24 tablet vomiting #20 tabs pantoprazole 40 mg tablet,delayed 40 mg PO DAILY #21 tabs 08/25/24 release sucralfate 100 mg/mL oral 10 ml PO BID 7 days #140 mL 08/25/24 suspension (Carafate) Allergies Allergy/AdvReac Type Severity Reaction Status Date / Time Penicillins Allergy Intermediate Hives Verified 08/25/24 11:54 Review of Systems 2 Review of Systems: Constitutional : No Weight loss, No Fever, No Chills ENT/Mouth : No sore throat, No Rhinorrhea Eyes: No Swelling, No Redness Cardiovascular : No Chest Pain, No SOB, NoEdema Respiratory : No Cough, No Sputum, No Wheezing Gastrointestinal : Positive Nausea, no Vomiting, no Diarrhea, positive abdominal Pain, No Hematochezia, No Melena Genitourinary : No Dysuria, No Urinary Frequency, No Hematuria, No Urgency Musculoskeletal : No joint pain, No Myalgias, No Joint Swelling Skin : No Skin Lesions, No rash Neuro : No Weakness, No Numbness, No Dizziness, No Headache All other systems reviewed and are negative. [facility] Past Medical History Attestation statement: The following information was validated with the patient. Source: old records reviewed Medical History Mixed hyperlipidemia due to type 2 diabetes mellitus Vitamin D deficiency Diabetes mellitus Diabetes Obesity (BMI 30-39.9) Smoker HGSIL (high grade squamous intraepithelial lesion) on Pap smear of cervix Surgical History History of loop electrical excision procedure (LEEP) History of colposcopy (~08/26/23) Hx of tubal ligation Family History Family History Paternal Grandfather Colon cancer Social History Social History Household Members: None Housing: Apartment Alcohol intake: never Patient Tobacco Use Status: Current everyday Tobacco user Tobacco use type: Cigarette Cigarette Packs Per Day: 0.5 Cigarettes Per Day: 5 Years Smoked: 7 e-Cigarette/Vaping Use: Never Used Second Hand Smoke Exposure: Yes Advance Directives: No Advance Directives Information Provided: No service: No Current occupational status: unemployed Cognitive needs: No Hearing needs: No Vision needs: No Physical Exam ED Vital Signs: Vital Signs - 24 hr 08/25/24 11:51 08/25/24 15:32 Temperature 98.2 F 98.8 F Pulse Rate 78 84 Respiratory Rate 16 14 Blood Pressure 126/79 126/71 Pulse Oximetry 99 99 Oxygen Delivery Method Room Air Room Air BMI result Body Mass Index 38.2 Appearance: Alert. Oriented X3. No acute distress. Eyes: Pupils equal, round and reactive to light. ENT: Pharynx normal. Neck: Normal inspection. Neck supple. CVS: Normal heart rate and rhythm. Pulses normal. Respiratory: No respiratory distress. Breath sounds normal. Abdomen: Soft and non-tender. neg Hines's sign Skin: Skin warm and dry. Normal skin color. Normal skin turgor. Extremities: No lower extremity edema. Neuro: Oriented X 3. No motor deficit. No sensory deficit. CN2-12 intact Course Course Course Narrative: This is an RME: Additional HPI, ROS, PE not included below will be deferred to primary provider. RME assessment and note performed by: Niyah Kaba PA-C This is a 61-kouo-hbg-female, with a hx of DM, HGSIL, who presents to the ER with a complaint of epigastric pain since midnight. Pain is intermittent. Has not eaten since. Has vomited 3x since last night. No diarrhea or fevers. TTP overlying the epigastrium, no RUQ pain. Denies any fevers, chills, chest pain, shortness of breath, or diarrhea. Plan: Labs, EKG, further ER eval needed. Medications Administered Discontinued Medications Generic Name Dose Route Start Last Admin Trade Name Freq PRN Reason Stop Dose Admin Al Hydroxide/Mg Hydroxide 15 ml 08/25/24 15:06 08/25/24 16:05 Magnesium Hydrox/Alum Hydrox 30 Ml Oral.Susp PO 08/25/24 15:07 15 ml ONCE ONE Administration Lidocaine HCl 15 ml 08/25/24 15:06 08/25/24 16:05 Lidocaine Hcl Viscous 2 % 15 Ml Solution MUCOUS MEM 08/25/24 15:07 15 ml ONCE ONE Administration Medical Decision Making Medical Decision Making [facility] Narrative: 33 yo female wtih PMH of hyperglycemia, elevated BPs, gastritis here with c/o upper abdominal pain and n/v this AM - she has no pain to palpation and neg hines's sign. Will obtain labs and start on GI cocktail given her symptoms will start on PPI and zofran/carafate. Differential Diagnosis Differential Diagnoses: The differential diagnosis associated with the presentation includes gastritis, GERD, no RUQ pain doubt biliary colic Admission/Observation Consideration of admission/observation: Escalation of care including admission/observation considered work up negative stable for DC Lab Data [facility] Lab Attestation statement: I reviewed the patient's lab results. 08/25/24 12:26 08/25/24 12:26 Labs: Lab Results 08/25/24 Range/Units 12:26 WBC 7.5 (4.8-10.8) X10*3/uL RBC 4.28 (4.20-5.50) X10*6/uL Hgb 11.1 L (12.0-16.0) g/dl Hct 35.2 L (37.0-47.0) % MCV 82.2 (80.0-98.0) fL MCH 25.9 L (27.0-33.0) pg MCHC 31.5 (31.0-35.0) g/dl RDW 15.9 (11.0-16.0) % Plt Count 225 (160-400) X10*3/uL MPV 10.6 (9.4-12.3) fL Immature Gran % (Auto) 0.3 (0.0-0.4) % Neut % (Auto) 66.3 (45-73) % Lymph % (Auto) 27.7 (20-40) % [place] % (Auto) 4.8 (2-11) % Eos % (Auto) 0.5 (0-4) % Baso % (Auto) 0.4 (0-2) % Lymph # (Auto) 2.1 (1.2-4.9) X10*3/uL [place] # (Auto) 0.4 (0.1-1.2) X10*3/uL Eos # (Auto) 0.0 (0.0-0.4) X10*3/uL Baso # (Auto) 0.0 (0.0-0.2) X10*3/uL Abs Immat Gran (auto) 0.02 (0.00-0.03) X10*3/uL Absolute Neuts (auto) 4.9 (2.0-8.3) x10*3/uL Absolute Nucleated RBC 0.000 (0.0-0.012) X10*3/uL Nucleated RBC % (auto) 0.0 (0.0-0.2) /100WBC Sodium 134 L (135-145) mmol/L Potassium 4.0 (3.3-5.1) mmol/L Chloride 109 H (96-108) mmol/L Carbon Dioxide 22 (22-29) mmol/L Anion Gap 7 L (12-20) BUN 14 (9-16) mg/dL Creatinine 0.61 (0.5-1.4) mg/dL Estim Creat Clear Calc 138.0 Estimated GFR > 60 Random Glucose 196 H (60-115) mg/dL Calcium 8.7 (8.4-10.2) mg/dL Magnesium 2.0 (1.6-2.6) mg/dL Total Bilirubin 0.3 (0.0-1.0) mg/dL Direct Bilirubin 0.1 (0.0-0.5) mg/dL AST 15 (5-31) U/L ALT 11 (0-31) U/L Alkaline Phosphatase 51 (39-117) U/L Troponin I High Sens < 2.7 (<3.5-17.0) ng/L Total Protein 7.1 (6.5-8.0) g/dL Albumin 3.9 (3.5-5.0) g/dL Lipase 39 (8-78) U/L Beta HCG, Quant < 2 mIU/mL Influenza Type A (PCR) NEGATIVE (Negative) Influenza Type B (PCR) NEGATIVE (Negative) RSV RNA Qual (PCR) NEGATIVE (Negative) SARS-CoV-2 RNA (RT-PCR) NEGATIVE (Negative) Independent Interpretation I performed an independent interpretation of an: EKG Interpretation: Rate: 74 Rhythm: NSR [place]: normal Normal P waves. Normal LIVE. Normal QRS complex. ST T wave : no EMILY, inverted T wave V1 qTC: 431 prior studies: no acute ischemia The study has been interpreted contemporaneously by me. . External Record Review External record reviewed: Outpatient record Prescription Management I considered prescription management with: Other Discharge Plan Discharge Clinical Impression: Acute gastritis Qualifiers: Gastritis type: unspecified gastritis Gastritis bleeding: without bleeding Q ualified Code(s): K29.00 - Acute gastritis without bleeding Patient Disposition: Home, Self-Care Instructions: Gastritis (ED) Additional Instructions: avoid spicy and greasy foods bland diet today return for any worsening symptoms or concerns. avoid motrin stop your tizanidine while on new medications Prescriptions: New sucralfate [Carafate] 100 mg/mL suspension 10 ml PO BID 7 Days Qty: 140 0RF ondansetron 4 mg tablet,disintegrating 4 mg PO Q8H PRN (Reason: nausea and vomiting) Qty: 20 0RF pantoprazole 40 mg tablet,delayed release (DR/EC) 40 mg PO DAILY Qty: 21 0RF No Action metformin 1,000 mg tablet 1,000 mg PO BID Qty: 180 1RF lisinopril 5 mg tablet 5 mg PO QAM Qty: 90 1RF cholecalciferol (vitamin D3) 50 mcg (2,000 unit) capsule 50 mcg PO DAILY 90 Days Qty: 90 3RF tizanidine 4 mg tablet 4 mg PO TID PRN (Reason: right low back pain and neck pain) Qty: 90 0RF Rx Instructions: Take only as needed Referrals: [facility] [place] [facility] [Provider Group] (call to schedule appointment) Print Language: Slovenian
--- NOTE | 2024-08-25 11:57 | ECG_ITS ---
Test Reason : CP Blood Pressure : */* mmHG Vent. Rate : 74 BPM Atrial Rate : 74 BPM P-R Int : 124 ms QRS Dur : 88 ms QT Int : 394 ms P-R-T Axes : 4 18 7 degrees QTcB Int : 437 ms Normal sinus rhythm Normal ECG No previous ECGs available Referred By: Niyah Kaba Electronically Signed By: RUBY EDWARDS
[2024-08-25 12:33] LABS: MANUAL DIFF FLAG NO
[2024-08-25 12:35] LABS: Basophils Percent Auto 0.4 % (0-2); Eosinophils Percent Auto 0.5 % (0-4); Hematocrit 35.2 % (37.0-47.0); Hemoglobin 11.1 g/dl (12.0-16.0); Imm Gran Abs Auto 0.02 X10*3/uL (0.00-0.03); Imm Gran Pct Auto 0.3 % (0.0-0.4); Lymphocytes Absolute Auto 2.1 X10*3/uL (1.2-4.9); Lymphocytes Percent Auto 27.7 % (20-40); Mean Corpuscular HGB Conc 31.5 g/dl (31.0-35.0); Mean Corpuscular Hemoglobin 25.9 pg (27.0-33.0); Mean Corpuscular Volume 82.2 fL (80.0-98.0); Mean Platelet Volume 10.6 fL (9.4-12.3); Monocytes Absolute Auto 0.4 X10*3/uL (0.1-1.2); Monocytes Percent Auto 4.8 % (2-11); Neutrophils Absolute Auto 4.9 x10*3/uL (2.0-8.3); Neutrophils Percent Auto 66.3 % (45-73); Platelet Count 225 X10*3/uL (160-400); Red Blood Count 4.28 X10*6/uL (4.20-5.50); Red Cell Distribution Width 15.9 % (11.0-16.0); White Blood Count 7.5 X10*3/uL (4.8-10.8)
[2024-08-25 12:58] LABS: Alanine Aminotransferase 11 U/L (0-31); Albumin Level 3.9 g/dL (3.5-5.0); Alkaline Phosphatase 51 U/L (39-117); Anion Gap 7 (12-20); Aspartate Amino Transferase 15 U/L (5-31); Bilirubin Direct 0.1 mg/dL (0.0-0.5); Bilirubin Total 0.3 mg/dL (0.0-1.0); Blood Urea Nitrogen 14 mg/dL (9-16); Calcium 8.7 mg/dL (8.4-10.2); Carbon Dioxide 22 mmol/L (22-29); Chloride 109 mmol/L (96-108); Estimated Glomerular Filt Rate > 60; Glucose Random 196 mg/dL (60-115); Lipase 39 U/L (8-78); Sodium 134 mmol/L (135-145); Total Protein 7.1 g/dL (6.5-8.0)
[2024-08-25 13:00] LABS: HCG Quantitative < 2 mIU/mL; Troponin-I High Sensitivity < 2.7 ng/L (<3.5-17.0)
[2024-08-25 13:18] LABS: Influenza A PCR NEGATIVE (Negative); Influenza B PCR NEGATIVE (Negative); Resp Syncy Virus RNA Qual PCR NEGATIVE (Negative); SARS COV2 PCR INHOUSE NEGATIVE (Negative)
[2024-08-25 15:32] VITALS: BP 126/71; PULSE 84; RESP 14; TEMP 37.1; O2SAT 99
[2024-08-25] MEDS: Lidocaine HCl Viscous 2 % 15 ML SOLUTION MUCOUS MEM (16:05)
[2024-08-25] MEDS: Magnesium Hydrox/Alum Hydrox 30 ML ORAL.SUSP 15 ML PO (16:05)
[2024-08-25 16:33] VITALS: BP 131/82; PULSE 79; RESP 14; TEMP 37.1; O2SAT 99
== END 2024-08-25 16:34 | disposition home or self-care (01) ==
PROVIDERS: Physician Assistant Medical; Emergency Provider Emergency Medicine; PCP Internal Medicine
DX: K29.00 Acute gastritis without bleeding (principal); R11.2 Nausea with vomiting, unspecified; Z03.818 Encounter for observation for suspected exposure to other biological agents ruled out; E11.9 Type 2 diabetes mellitus without complications; E78.5 Hyperlipidemia, unspecified; F17.210 Nicotine dependence, cigarettes, uncomplicated; Z79.84 Long term (current) use of oral hypoglycemic drugs; Z79.899 Other long term (current) drug therapy
CPT/HCPCS: 0241U; 36415; 80048; 80076; 83690; 83735; 84484; 84702; 85025; 93005; 99284

== ENCOUNTER → 2024-08-25 11:57 | Outpatient (BNV) | payer OTHER, SELFPAY | PROVIDERS: Emergency Provider Emergency Medicine; PCP Internal Medicine; Visit Provider Internal Medicine | DX: R07.9 Chest pain, unspecified (principal) | CPT/HCPCS: 93010 ==

== ENCOUNTER 2024-09-25 13:11 | Outpatient (AMB) | payer OTHER, SELFPAY ==
[2024-09-25 13:30] VITALS: BP 126/86; PULSE 101; RESP 20; TEMP 36.9; O2SAT 98; BMI 38.7
--- NOTE | 2024-09-25 13:30 | A.OFFPC_ITS ---
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 Language: Semiconductor Processing Technician Name: Pt refused Accompanied by: Friend Allergies Penicillins Allergy (Intermediate, Verified 09/25/24 14:00) Hives Medication List - Last Reconciled 09/25/24 by JENNIFFER Dias cholecalciferol (vitamin D3) 50 mcg PO DAILY 90 days lisinopril 5 mg PO QAM metformin 1,000 mg PO BID ondansetron 4 mg PO Q8H PRN pantoprazole 40 mg PO DAILY sucralfate (Carafate) 10 mL PO BID 7 days tizanidine 4 mg PO TID PRN Tobacco use date assessed: 09/25/24 Dental Screening Dental Screen Date: 09/25/24 Did you have a dental visit in the last 12 months?: Yes Did you have a dental problem in the last 6 months where you did not have access to dental care?: No Was dental information given to patient?: Patient has dentist HPI htn/dm/vitamin D HPI Details The patient is 33 year old female presenting couhing two weeks, had fever, right flank pain, reports that the pain feels like something is twitching or turning PFSH Medical History Mixed hyperlipidemia due to type 2 diabetes mellitus Vitamin D deficiency Diabetes mellitus Diabetes Obesity (BMI 30-39.9) Smoker HGSIL (high grade squamous intraepithelial lesion) on Pap smear of cervix Surgical History History of loop electrical excision procedure (LEEP) History of colposcopy (~08/26/23) Hx of tubal ligation Family History Paternal Grandfather Colon cancer Social History Household Members: None Housing: Apartment Alcohol intake: never Patient Tobacco Use Status: Current everyday Tobacco user Tobacco use type: Cigarette Cigarette Packs Per Day: 0.25 Cigarettes Per Day: 5 Years Smoked: 7 e-Cigarette/Vaping Use: Never Used Second Hand Smoke Exposure: Yes service: No Current occupational status: unemployed Cognitive needs: No Hearing needs: No Vision needs: No Female Reproductive History Menstrual Age of Menarche: 11 Date of last menstrual period: 09/24/24 Questionnaire PHQ-9 Over the last 2 weeks, how often have you been bothered by any of the following problems? 1. Little interest or pleasure in doing things: not at all 2. Feeling down, depressed, or hopeless: not at all 3. Trouble falling or staying asleep, or sleeping too much: not at all 4. Feeling tired or having little energy: not at all 5. Poor appetite or overeating: not at all 6. Feeling bad about yourself - or that you are a failure or have let yourself or your family down: not at all 7. Trouble concentrating on things, such as reading the newspaper or watching television: not at all 8. Moving or speaking so slowly that other people could have noticed. Or the opposite - being so fidgety or restless that you have been moving around a lot more than usual: not at all 9. Thoughts that you would be better off or of hurting yourself in some way: not at all Total score: 0 Depression Screening Interpretation: Negative Depression Screening Done: Yes 88417 - PHQ-9 Billing: Yes Source: Developed by Drs. Anthony Oakes, Kendy Ford, Alf Billings and colleagues, with an educational timoteo from [employer]. Thrive Questionnaire Date Thrive assessed: 09/25/24 I am a: Patient What is your living situation today?: I have a steady place to live Within the past 12 months, did the food you bought not last and you didn't have the money to get more?: I choose not to answer this question Within the past 12 months, did you worry whether your food would run out before you got money to buy more?: I choose not to answer this question Do you have trouble paying for medicines?: I choose not to answer this question Do you have trouble getting transportation to medical appointments?: I choose not to answer this question Do you have trouble paying your heating and electricity bill?: I choose not to answer this question Do you have trouble taking care of your child, family member or friend?: I choose not to answer this question Do you have trouble with day-to-day activities such as bathing, preparing meals, shopping, managing finances, etc.?: I choose not to answer this question Are you currently unemployed and looking for a job?: I choose not to answer this question Are you interested in more education?: I choose not to answer this question Please select the resources that you would like help with: Job search/training Currently or been in a relationship where the following occur: I choose not to answer THRIVE Score: 0 AUDIT C Alcohol Use Questionnaire (AUDIT-C) 1. How often do you have a drink containing alcohol?: Never Total Score: 0 Score Reviewed/Action Taken: No JADE-7 AMB Questionnaire JADE-7 Date JADE - 7 assessed: 09/25/24 Feeling nervous, anxious, or on edge: 0 = Not at all Not being able to stop or control worryin = Not at all Worrying too much about different things: 0 = Not at all Trouble relaxin = Not at all Being so restless that it is hard to sit still: 0 = Not at all Becoming easily annoyed or irritable: 0 = Not at all Feeling afraid as if something awful might happen: 0 = Not at all Total JADE-7 score (0-4 normal; 5-9 mild; 10-14 moderate; 15-21 severe): 0 Source: Developed by Drs. Anthony Oakes, Kendy Ford, Alf Billings and colleagues, with an educational timoteo from [employer]. JADE-7 Assessment Billing JADE-7 Assessment Tool: JADE-7 Assessment 66965 Physical exam (Primary Care) Vital Signs: Last Vital Signs Temp 98.5 F 09/25/24 13:30 Pulse 101 H 09/25/24 13:30 Resp 20 09/25/24 13:30 BP 126/86 09/25/24 13:30 Pulse Ox 98 09/25/24 13:30 Oxygen Delivery Method Room Air 09/25/24 13:30 BMI result Body Mass Index 38.7 Tobacco/Smoking Status: Tobacco use Status Tobacco use date assessed 09/25/24 09/25/24 13:40 Patient Tobacco Use Status Current everyday Tobacco 09/25/24 13:40 Tobacco use type Cigarette 09/25/24 13:40 e-Cigarette/Vaping Use Never Used 09/25/24 13:40 PHQ-9: PHQ-9 Score PHQ-9: Total score 0 09/25/24 13:41 Depression Screening Interpretation: Negative Thrive Assessment: Date of Thrive Assessment Date Thrive assessed 09/25/24 09/25/24 13:40 Currently or been in a relationship where the following occur: I choose not to answer Results AMB Hemoglobin A1c AMB Hemoglobin A1c 7.3 % Last Edit by Mona Hammonds CMA on 09/25/24 13:42 Results Reviewed Results Reviewed: Laboratory Last Values Hgb A1c (Clinic) 7.3 % (4.0-6.0) H 09/25/24 13:41 Coding Additional Codes JADE-7 Assessment Billing - JADE-7 Assessment Tool: JADE-7 Assessment 89276 ([id number]) PHQ-9 - 79934 - PHQ-9 Billing: Yes ([id number]) Assessment & Plan Assessment & Plan Orders: Orders AMB Hemoglobin A1c Today E11.65 - Type 2 diabetes mellitus with hyperglycemia US renal RT Today R10.9 - Unspecified abdominal pain Medications: New doxycycline monohydrate 100 mg PO BID 7 days 14 caps 0RF cyclobenzaprine 10 mg PO TID PRN 90 tabs 0RF muscle spasm Discontinued tizanidine Take only as needed Discontinued Reason: Doctor's Order 4 mg PO TID PRN 90 tabs 0RF right low back pain and neck pain
== END 2024-09-25 15:56 | disposition home or self-care (01) ==
LOC: HO.HMCH 13:13
PROVIDERS: PCP Internal Medicine
DX: E11.65 Type 2 diabetes mellitus with hyperglycemia (principal)

== ENCOUNTER → 2024-09-25 13:11 | Outpatient (BNVA) | payer OTHER, SELFPAY | PROVIDERS: PCP Internal Medicine | DX: I10 Essential (primary) hypertension (principal); E55.9 Vitamin D deficiency, unspecified; E78.2 Mixed hyperlipidemia; R10.9 Unspecified abdominal pain; E11.65 Type 2 diabetes mellitus with hyperglycemia; R03.0 Elevated blood-pressure reading, without diagnosis of hypertension; E66.9 Obesity, unspecified; F17.210 Nicotine dependence, cigarettes, uncomplicated; Z68.38 Body mass index [BMI] 38.0-38.9, adult | CPT/HCPCS: 83036; 99212 ==

== ENCOUNTER 2024-10-20 09:53 | Emergency (ER) | payer OTHER, SELFPAY ==
[2024-10-20 09:58] VITALS: BP 145/100; PULSE 103; RESP 18; TEMP 36.2; O2SAT 100; BMI 37.8
[2024-10-20 10:23] LABS: Glucose, Whole Blood 171 mg/dL (60-115)
[2024-10-20 11:09] VITALS: BP 135/91; PULSE 93; RESP 16; TEMP 36.8; O2SAT 98
--- NOTE | 2024-10-20 11:16 | ED.GENADULT ---
HPI - General Adult General Chief complaint: Recheck/Abnormal Lab/Rx Stated complaint: High BP Time Seen by Provider: 10/20/24 11:06 History of Present Illness ED Provider: Frank Robbins MD HPI narrative: 33-year-old female with diabetes on metformin 1000 b.i.d.. She says when she woke this morning her blood sugar was 170 she took her metformin and 1 hour later without food she took her sugar again and was 308. She has no polyuria polydipsia headache lethargy fever shortness of breath abdominal pain or any other acute symptoms. She was also worried about her blood pressure but upon arrival here it was normal range Related Data Previous Rx's ?Medication ?Instructions ?Recorded cholecalciferol (vitamin D3) 50 50 mcg PO DAILY 90 days #90 caps 05/13/24 mcg (2,000 unit) capsule lisinopril 5 mg tablet 5 mg PO QAM #90 tabs 05/13/24 metformin 1,000 mg tablet 1,000 mg PO BID #180 tabs 05/13/24 ondansetron 4 mg disintegrating 4 mg PO Q8H PRN nausea and 08/25/24 tablet vomiting #20 tabs pantoprazole 40 mg tablet,delayed 40 mg PO DAILY #21 tabs 08/25/24 release sucralfate 100 mg/mL oral 10 ml PO BID 7 days #140 mL 08/25/24 suspension (Carafate) cyclobenzaprine 10 mg tablet 10 mg PO TID PRN muscle spasm #90 09/25/24 tabs doxycycline monohydrate 100 mg 100 mg PO BID 7 days #14 caps 09/25/24 capsule blood sugar diagnostic (OneTouch #100 ea 10/20/24 Ultra Test strips) blood-glucose meter (OneTouch #1 ea 10/20/24 Ultra2 Meter) Allergies Allergy/AdvReac Type Severity Reaction Status Date / Time Penicillins Allergy Intermediate Hives Verified 10/20/24 09:59 [facility] Past Medical History Medical History Mixed hyperlipidemia due to type 2 diabetes mellitus Vitamin D deficiency Diabetes mellitus Diabetes Obesity (BMI 30-39.9) Smoker HGSIL (high grade squamous intraepithelial lesion) on Pap smear of cervix Surgical History History of loop electrical excision procedure (LEEP) History of colposcopy (~08/26/23) Hx of tubal ligation Family History Family History Paternal Grandfather Colon cancer Social History Social History Household Members: None Housing: Apartment Alcohol intake: never Patient Tobacco Use Status: Current everyday Tobacco user Tobacco use type: Cigarette Cigarette Packs Per Day: 0.25 Cigarettes Per Day: 5 Years Smoked: 7 e-Cigarette/Vaping Use: Never Used Second Hand Smoke Exposure: Yes service: No Current occupational status: unemployed Cognitive needs: No Hearing needs: No Vision needs: No Physical Exam ED Vital Signs: Vital Signs - 24 hr 10/20/24 09:58 10/20/24 11:09 10/20/24 12:18 Temperature 97.1 F 98.3 F 98.3 F Pulse Rate 103 H 93 93 Respiratory Rate 18 16 16 Blood Pressure 145/100 H 135/91 H 135/91 H Pulse Oximetry 100 98 98 Oxygen Delivery Method Room Air Room Air Room Air BMI result Body Mass Index 37.8 Const Other: EXAM: Gen: Alert, awake, well appearing, well hydrated. Head: Atraumatic Eyes: Anicteric, Normal conjunctiva. ENT: Moist mucosa, no pallor. ? Neck: Supple. Respiratory: Breathing comfortably, No distress.Clear to auscultation bilaterally, symmetric chest expansion, No wheeze, rales, ronchi. Cardiovascular: Regular rate and rhythm. No murmurs or rub. Well perfused periphery, warm extremities. No edema. ? Abdominal: Soft, no objective distension. No palpable masses or obvious organomegaly. No focal tenderness, no guarding, no rebound tenderness or other peritoneal findings. : No flank tenderness. Neuro: Alert. Gross movement of all extremities intact. ? Vital signs: See flowsheet Medical Decision Making Medical Decision Making MDM Narrative: Well-appearing, comfortable, euvolemic patient with transient hyperglycemia at home. No symptoms signs or other concern for diabetic emergency patient should call her PCP to discuss her dosage or other diabetes care with her primary doctor. Lab Data Labs: Lab Results 10/20/24 Range/Units 10:18 POC Glucose 171 H (60-115) mg/dL Discharge Plan Discharge Clinical Impression: Hyperglycemia Patient Disposition: Home, Self-Care Instructions: Diabetic Hyperglycemia (ED) Additional Instructions: DISCHARGE DIAGNOSES: High blood sugar without diabetic emergency HISTORY OF PRESENTATION: Blood sugar 308 at home without symptoms EMERGENCY DEPARTMENT COURSE,TESTS, TREATMENTS: While in the ED today blood sugar was in a more appropriate range DISCHARGE MEDICATIONS: ?[We have made no changes to your regular medication regimen] FOLLOW-UP: ?Call your primary or general physician soon as possible to discuss your symptoms, your ED visit and to discuss follow up plans Call your primary doctor to discuss your blood sugar ranges and possible additional treatment INSTRUCTIONS ?& RETURN PRECAUTIONS: If any symptoms change first call your primary physician, if it is after-hours your primary doctors office should have a provider representative personal service you can speak with. If the symptoms are severe or very concerning to you then call 911 or return to the ED. Frank Robbins MD Emergency Physician [facility] Prescriptions: No Action (DME) blood-glucose meter [OneTouch Ultra2 Meter] Misc See Rx Instructions .Route Qty: 1 0RF Rx Instructions: As directed (DME) OneTouch Ultra Test Strip See Rx Instructions .Route Qty: 100 3RF Rx Instructions: As directed sucralfate [Carafate] 100 mg/mL suspension 10 ml PO BID 7 Days Qty: 140 0RF ondansetron 4 mg tablet,disintegrating 4 mg PO Q8H PRN (Reason: nausea and vomiting) Qty: 20 0RF pantoprazole 40 mg tablet,delayed release (DR/EC) 40 mg PO DAILY Qty: 21 0RF metformin 1,000 mg tablet 1,000 mg PO BID Qty: 180 1RF lisinopril 5 mg tablet 5 mg PO QAM Qty: 90 1RF cholecalciferol (vitamin D3) 50 mcg (2,000 unit) capsule 50 mcg PO DAILY 90 Days Qty: 90 3RF doxycycline monohydrate 100 mg capsule 100 mg PO BID 7 Days Qty: 14 0RF cyclobenzaprine 10 mg tablet 10 mg PO TID PRN (Reason: muscle spasm) Qty: 90 0RF Interventions: ED Discharge Assessment Last Done: 10/20/24 12:18 Discharge Date/Time: 10/20/24 12:22 Print Language: Swazi
[2024-10-20 12:18] VITALS: BP 135/91; PULSE 93; RESP 16; TEMP 36.8; O2SAT 98
== END 2024-10-20 12:22 | disposition home or self-care (01) ==
PROVIDERS: Emergency Provider Emergency Medicine; PCP Internal Medicine
DX: E11.65 Type 2 diabetes mellitus with hyperglycemia (principal); R79.89 Other specified abnormal findings of blood chemistry; F17.210 Nicotine dependence, cigarettes, uncomplicated; Z79.84 Long term (current) use of oral hypoglycemic drugs; Z79.899 Other long term (current) drug therapy
CPT/HCPCS: 82947; 99282; 99284

== ENCOUNTER 2024-10-21 15:39 | Outpatient (AMB) | payer OTHER, SELFPAY ==
[2024-10-21 15:55] VITALS: BP 148/90; PULSE 103; TEMP 36.3; O2SAT 98; BMI 37.8
--- NOTE | 2024-10-21 15:55 | MHC.PC.OV ---
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: Yes Strand Forming Machine Operator Language: Irish Accompanied by: Self / Same As Patient Allergies Penicillins Allergy (Intermediate, Verified 10/21/24 15:56) Hives Tobacco use date assessed: 09/25/24 Dental Screening Dental Screen Date: 09/25/24 [facility] Medical History Mixed hyperlipidemia due to type 2 diabetes mellitus Vitamin D deficiency Diabetes mellitus Diabetes Obesity (BMI 30-39.9) Smoker HGSIL (high grade squamous intraepithelial lesion) on Pap smear of cervix Surgical History History of loop electrical excision procedure (LEEP) History of colposcopy (~08/26/23) Hx of tubal ligation Family History Paternal Grandfather Colon cancer Social History Household Members: None Housing: Apartment Alcohol intake: never Patient Tobacco Use Status: Current everyday Tobacco user Tobacco use type: Cigarette Cigarette Packs Per Day: 0.25 Cigarettes Per Day: 5 Years Smoked: 7 e-Cigarette/Vaping Use: Never Used Second Hand Smoke Exposure: Yes service: No Current occupational status: unemployed Cognitive needs: No Hearing needs: No Vision needs: No Female Reproductive History Menstrual Age of Menarche: 11 Questionnaire Thrive Questionnaire Date Thrive assessed: 09/25/24 I am a: Patient What is your living situation today?: I have a steady place to live Within the past 12 months, did the food you bought not last and you didn't have the money to get more?: I choose not to answer this question Within the past 12 months, did you worry whether your food would run out before you got money to buy more?: I choose not to answer this question Do you have trouble paying for medicines?: I choose not to answer this question Do you have trouble getting transportation to medical appointments?: I choose not to answer this question Do you have trouble paying your heating and electricity bill?: I choose not to answer this question Do you have trouble taking care of your child, family member or friend?: I choose not to answer this question Do you have trouble with day-to-day activities such as bathing, preparing meals, shopping, managing finances, etc.?: I choose not to answer this question Are you currently unemployed and looking for a job?: I choose not to answer this question Are you interested in more education?: I choose not to answer this question Please select the resources that you would like help with: Job search/training Currently or been in a relationship where the following occur: I choose not to answer THRIVE Score: 0 JADE-7 AMB Questionnaire JADE-7 Date JADE - 7 assessed: 09/25/24 Source: Developed by Drs. Anthony Oakes, Kendy Ford, Alf Billings and colleagues, with an educational timoteo from [employer] Qualified. Physical exam (Primary Care) Tobacco/Smoking Status: Tobacco use Status Tobacco use date assessed 09/25/24 09/25/24 13:40 Patient Tobacco Use Status Current everyday Tobacco 09/25/24 13:40 Tobacco use type Cigarette 09/25/24 13:40 e-Cigarette/Vaping Use Never Used 09/25/24 13:40 Thrive Assessment: Date of Thrive Assessment Date Thrive assessed 09/25/24 09/25/24 13:40 Currently or been in a relationship where the following occur: I choose not to answer Coding
[2024-10-21 15:56] VITALS: BP 148/90
--- NOTE | 2024-10-21 15:56 | MHC.PC.OV ---
Vital Signs 10/21/24 15:55 10/21/24 15:56 Height 5 ft 2 in Weight 206 lb 8 oz BMI 37.8 BP 148/90 H 148/90 H Blood Pressure Location Lt brachial Lt brachial Position Sitting Sitting Pulse 103 H Pulse Source Pulse Oximeter Temp 97.3 F Temp Source Temporal Artery Scan Pulse Oximetry (%) 98 Oxygen Delivery Method Room Air Intake Visit Reasons: High glucose/High BP Slab Tripper Required: Yes Slab Tripper Name: [id number]/Saad Allergies Penicillins Allergy (Intermediate, Verified 10/25/24 21:36) Hives Medication List - Last Reconciled 10/25/24 by JENNIFFER Dias blood sugar diagnostic (OneTouch Ultra Test strips) As directed blood-glucose meter (OneTouch Ultra2 Meter) As directed cholecalciferol (vitamin D3) 50 mcg PO DAILY 90 days cyclobenzaprine 10 mg PO TID PRN empagliflozin (Jardiance) 25 mg PO DAILY lisinopril 10 mg PO DAILY metformin 1,000 mg PO BID nebulizer and compressor (Vios Aerosol Delivery System) As directed pantoprazole 40 mg PO DAILY sucralfate (Carafate) 10 mL PO BID 7 days Tobacco use date assessed: 09/25/24 Dental Screening Dental Screen Date: 09/25/24 HPI High glucose/High BP HPI Details The patient is a 33-year-old female presenting with concerns regarding elevated blood glucose and hypertension. She reports experiencing high blood glucose levels, with a recent reading of 305 mg/dL in the afternoon after taking her medication on an empty stomach. She has symptoms including dizziness, headache, and dry mouth, which led to an emergency room visit and was told that her blood sugar level does not warrants emergent medicine, She was instructed to follow up with her PCP. The elevated blood glucose levels are contributing to these symptoms. Regarding hypertension, the patient states her blood pressure readings are generally around 125/90 mmHg. She has not measured her blood pressure on the day of the visit but has noted previous high readings. She denies symptoms such as chest pain or shortness of breath but does report headaches, which may be related to her hypertension. [facility] Medical History Mixed hyperlipidemia due to type 2 diabetes mellitus Vitamin D deficiency Diabetes mellitus Diabetes Obesity (BMI 30-39.9) Smoker HGSIL (high grade squamous intraepithelial lesion) on Pap smear of cervix Surgical History History of loop electrical excision procedure (LEEP) History of colposcopy (~08/26/23) Hx of tubal ligation Family History Paternal Grandfather Colon cancer Social History Household Members: None Housing: Apartment Alcohol intake: never Patient Tobacco Use Status: Current everyday Tobacco user Tobacco use type: Cigarette Cigarette Packs Per Day: 0.25 Cigarettes Per Day: 4 Years Smoked: 7 e-Cigarette/Vaping Use: Never Used Second Hand Smoke Exposure: Yes service: No Current occupational status: unemployed Cognitive needs: No Hearing needs: No Vision needs: No Female Reproductive History Menstrual Age of Menarche: 11 Questionnaire Thrive Questionnaire Date Thrive assessed: 09/25/24 I am a: Patient What is your living situation today?: I have a steady place to live Within the past 12 months, did the food you bought not last and you didn't have the money to get more?: I choose not to answer this question Within the past 12 months, did you worry whether your food would run out before you got money to buy more?: I choose not to answer this question Do you have trouble paying for medicines?: I choose not to answer this question Do you have trouble getting transportation to medical appointments?: I choose not to answer this question Do you have trouble paying your heating and electricity bill?: I choose not to answer this question Do you have trouble taking care of your child, family member or friend?: I choose not to answer this question Do you have trouble with day-to-day activities such as bathing, preparing meals, shopping, managing finances, etc.?: I choose not to answer this question Are you currently unemployed and looking for a job?: I choose not to answer this question Are you interested in more education?: I choose not to answer this question Please select the resources that you would like help with: Job search/training Currently or been in a relationship where the following occur: I choose not to answer THRIVE Score: 0 JADE-7 AMB Questionnaire JADE-7 Date JADE - 7 assessed: 09/25/24 Source: Developed by Drs. Anthony Oakes, Kendy Ford, Alf Billings and colleagues, with an educational timoteo from [employer]. Review of Systems Const Reports headache(s) (she attributed to high blood pressure) Eyes Denies loss of vision ENT Denies vertigo, Reports dizziness, Reports dry mouth, Reports headache(s) (she attributed to high blood pressure) and Denies sore throat Card Denies chest pain, Denies leg edema and Denies lightheadedness Resp Denies cough, Denies hemoptysis and Denies wheezing GI Denies abdominal pain and Denies change in bowel habits Denies urinary frequency, Denies dysuria and Denies urinary urgency Neuro Denies Abnormal speech present, Denies vertigo, Reports dizziness, Reports headache(s) (she attributed to high blood pressure) and Denies loss of vision Panchito/Lymph Denies easy bleeding and Denies easy bruising Aller/Immun Denies wheezing Physical exam (Primary Care) Vital Signs: Last Vital Signs Temp 97.3 F 10/21/24 15:55 Pulse 103 H 10/21/24 15:55 BP 148/90 H 10/21/24 15:56 Pulse Ox 98 10/21/24 15:55 Oxygen Delivery Method Room Air 10/21/24 15:55 BMI result Body Mass Index 37.8 Tobacco/Smoking Status: Tobacco use Status Tobacco use date assessed 09/25/24 10/21/24 16:03 Patient Tobacco Use Status Current everyday Tobacco 10/21/24 16:03 Tobacco use type Cigarette 10/21/24 16:03 e-Cigarette/Vaping Use Never Used 10/21/24 16:03 Thrive Assessment: Date of Thrive Assessment Date Thrive assessed 09/25/24 10/21/24 16:03 Currently or been in a relationship where the following occur: I choose not to answer Const General: healthy appearing, no acute distress, alert and awake Nutritional Appearance: well nourished Orientation/consciousness: oriented to person, oriented to place and oriented to time HENMT Ears: TM's normal bilaterally General nose exam: Normal nasal mucous membranes and turbinates present Eyes Conjunctivae: conjunctivae normal Sclerae: sclerae normal Pupils: Equal, round and reactive pupils present Neck Neck: Yes no lymphadenopathy and Yes no JVD Thyroid: Thyroid normal Carotids: no bruits Resp Effort & Inspection: normal respiratory effort and not tachypneic Auscultation: no crackles, no rales, no rhonchi and no wheezes Cardio Rate: regular rate Rhythm: regular rhythm Heart sounds: no murmurs and normal S1 and S2 GI Palpation (GI): Soft to palpation, nontender, no hepatomegaly and no splenomegaly Auscultation: normal bowel sounds Skin General skin exam: no rashes or lesions noted and dry skin Neuro General: oriented to person, oriented to place and oriented to time Cranial nerves: Yes Equal, round and reactive pupils present Speech: No Abnormal speech present Gait exam (Neuro): Normal gait present Motor exam (neuro): no tremor noted Extrem Right upper extremity: full ROM Left upper extremity: full ROM Right lower extremity: full ROM; no edema Left lower extremity: full ROM; no edema Coding Level of Care Code Est Pt Level 3 (14448) Diagnoses Hypertension, unspecified type I10 Hypertension type: unspecified Hyperglycemia R73.9 Time Spent (min) 35 Assessment & Plan Assessment & Plan (1) HTN (hypertension): Code(s): I10 - Essential (primary) hypertension Category: Medical Qualifiers: Hypertension type: unspecified Qualified Code(s): I10 - Essential (primary) hypertension Plan: With the pressure 148/90 or goal is systolic less than 130 mmhg Reinforced low-salt diet Increase lisinopril to 10 mg daily Return in 4 weeks for blood pressure check (nurse visit) (2) Hyperglycemia: Code(s): R73.9 - Hyperglycemia, unspecified Category: Medical Plan: Uncontrolled type 2 diabetes, recording glucose in the 300s. Currently on metformin a 1000 mg b.i.d.. We will add Jardiance 25 mg daily. Reinforced low sugar/carbohydrates diet and activity as tolerated Continue monitoring blood sugar and contact office with any concerns We will recheck A1c in 3 months Medications: New empagliflozin (Jardiance) 25 mg PO DAILY 90 tabs 2RF lisinopril 10 mg PO DAILY 30 tabs 3RF Discontinued lisinopril Discontinued Reason: Doctor's Order 5 mg PO QAM 90 tabs 1RF
== END 2024-10-21 16:17 | disposition home or self-care (01) ==
LOC: HO.HMCH 15:40
PROVIDERS: PCP Internal Medicine
DX: I10 Essential (primary) hypertension (principal); R73.9 Hyperglycemia, unspecified

== ENCOUNTER → 2024-10-21 15:39 | Outpatient (BNVA) | payer OTHER, SELFPAY | PROVIDERS: PCP Internal Medicine | DX: E11.65 Type 2 diabetes mellitus with hyperglycemia (principal); I10 Essential (primary) hypertension; Z79.84 Long term (current) use of oral hypoglycemic drugs | CPT/HCPCS: 99212 ==

== ENCOUNTER → 2024-10-22 09:35 | Outpatient (BNVA) | payer OTHER, SELFPAY | PROVIDERS: PCP Internal Medicine; Visit Provider Surgery ==

== ENCOUNTER 2024-11-18 08:09 | Outpatient (AMB) | payer OTHER, SELFPAY ==
--- NOTE | 2024-11-18 09:01 | A.OFFVIS_ITS ---
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 *LUNCHROOM MOTHER* Horse Racing Manager Required: Yes Horse Racing Manager Services: Horse Racing Manager Present Information Interpreted: clinical only Allergies Penicillins Allergy (Intermediate, Verified 11/18/24 09:01) Hives Medication List - Last Reconciled 11/18/24 by Dilip Pascual MD blood sugar diagnostic (OneTouch Ultra Test strips) As directed blood-glucose meter (OneTouch Ultra2 Meter) As directed cholecalciferol (vitamin D3) 50 mcg PO DAILY 90 days cyclobenzaprine 10 mg PO TID PRN lisinopril 10 mg PO DAILY metformin 1,000 mg PO BID nebulizer and compressor (Vios Aerosol Delivery System) As directed pantoprazole 40 mg PO DAILY HPI HPI 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 *LUNCHROOM MOTHER*: Details: Start time: 8.50am, End time: 9.43am ?I spent 48 minutes speaking with the patient on the phone plus an additional 5 minutes reviewing and updating records for a total of 53 minutes HPI Comments Details: Previous weight loss efforts: self diet and exercise Wakes up: 7am, Sleeps: 11pm Breakfast: none Lunch: skips Dinner: 5pm (chicken, beans, rice) Snacks: 12pm (almond bars) Exercise: none Beverages: Coffee/tea: none, soda: none, juice: none, ETOH: none PFSH Medical History (Updated 11/18/24 @ 09:05 by Dilip Pascual MD) GERD (gastroesophageal reflux disease) Non-insulin dependent type 2 diabetes mellitus Mixed hyperlipidemia due to type 2 diabetes mellitus Vitamin D deficiency Diabetes mellitus Diabetes Obesity (BMI 30-39.9) Smoker HGSIL (high grade squamous intraepithelial lesion) on Pap smear of cervix Surgical History History of loop electrical excision procedure (LEEP) History of colposcopy (~08/26/23) Hx of tubal ligation Family History Paternal Grandfather Colon cancer Social History Household Members: None Housing: Apartment Alcohol intake: never Patient Tobacco Use Status: Current everyday Tobacco user Tobacco use type: Cigarette Cigarette Packs Per Day: 0.25 Cigarettes Per Day: 4 Years Smoked: 7 e-Cigarette/Vaping Use: Never Used Second Hand Smoke Exposure: Yes service: No Current occupational status: unemployed Cognitive needs: No Hearing needs: No Vision needs: No Female Reproductive History Menstrual Age of Menarche: 11 Telehealth Telehealth Telehealth Platform: Telephone Location of provider rendering services: practice address Location of patient: address on file Patient Identification confirmed using: Name, : Yes Telehealth method: voice only Patient verbally consented to treatment: Yes Patient verbally consented to billing insurance company: Yes Patient informed of any privacy concerns related to visit: Yes Minutes spent on Phone/Video with Pt.: 53 Assessment & Plan Assessment & Plan (1) Obesity (BMI 30-39.9): Code(s): E66.9 - Obesity, unspecified Category: Medical Plan: 1.? Plan for lap sleeve gastrectomy. If diaphragmatic or ventral hernias are present at time of surgery, these will be repaired laparoscopically as well. I emphasized the importance of close follow-up, adherence to instructions and good communication. The surgery does not replace the need to change your lifestlyle which is the cause of the obesity problem. The surgery provides the motivation to try again to change your lifestyle, it reduces the appetite and make the transition to a better lifestyle easier and doubles the amount of weight you would lose compared to doing the lifestyle change without the surgery. You will need to be on a liquid diet with protein shakes for 2 weeks before surgery to maximize weight loss and boost your nutritional status to recover better from surgery and also for the first two weeks after surgery to let the stomach heal before we introduce other foods. After the first 2 weeks we will introduce protein bars and soft foods like scrambled eggs, cottage cheese and yogurt and after the 6th week will introduce meat, fish and cooked vegetables in small amounts. Over time you should be able to eat everything in small amounts. Side effects like nausea, vomiting, heartburn or abdominal pain are not common in the practice unless you are not following in the practice. This operation requires lifetime commitment to following in our practice and communication with me. You will much less weight and experience side effects if you don?t communicate or not following in the practice. Complications are rare and in our practice is about 1/10 of the national average. However, you can develop bleeding that may require transfusion (hasn?t happened for year in the practice), you may from complications (we did not have any deaths in the practice) and infections. Infections are usually a result of breakdown in communication or not understanding or following directions correctly. They are difficult to treat, they can happen during the first 6 weeks, they may require to be in the hospital for weeks or even months, not being able to eat by mouth and you may have drains and surgeries to try and correct the issue. Other risks and complications include possible conversion to an open procedure, leaks, small bowel obstruction, blood clots, cardiac, or pulmonary complications, as longterm complications such as ulcers, insufficient weight loss and vitamin deficiencies. 2. Nutritional counseling. Start with one CELEBRATE REBUILD protein (buy at hospital[facility]) shake (HALF scoop in 8oz low fat unsweetened almond milk) at 8am-10am, one protein bar (CELEBRATE protein bars, buy at [facility] [employer]) at 11am-1pm, another CELEBRATE REBUILD protein (buy at [facility] [employer]) shake (HALF scoop in 8oz low fat unsweetened almond milk) at 2pm-4pm, dinner at 5pm (8 forks of protein and 8 forks of salad/vegetables), another protein bar at 7pm-9pm and another CELEBRATE REBUILD protein shake (HALF scoop in 8oz low fat unsweetened almond milk) at 10pm to midnight So you do 3 protein shakes, 2 protein bars and one meal per day. Meal to include lean meat (beef, fish, pork, turkey, chicken), or ukrainian yogurt, or egg whites, or beans with a salad with olive oil and fruits (berries, pears, apples, kiwi). Avoid salt, breads, potatoes, rice, pasta, desserts. 3. Each shake would be drunk slowly, like coffee in a period of 2 hours. 4. Cut each bar in 4 pieces and eat each piece in 30min ?to make each bar last 2 hours. 5. I emphasized the importance of measuring accurately the food portion and measure it when serving the food in plate 6. The meal portions include 8 full-size forks of meat and 8 full-size forks of salad. You always eat the meat portion but you can replace up to 4 forks for salad/vegetables with rice, potatoes or pasta, or a fruit ?if you like. The less you do it the better weight loss will be. 7. One full-size fork is what it can be scooped on the fork without falling aside and not what can be bit with the fork. Use regular forks like those you find in a typical restaurant. 8.? Please buy the body composition scale we discussed and send me weight measurements as soon as possible and then once a week. Always include your diet and exercise plan. 9. Start walking outside daily, tracking calories with a goal of 300 calories per day, daily. Goal is to burn 2000 calories per week on exercise, which means either 300 calories daily, or 400 calories 5 days per week, or 500 calories 4 days per week, or 650 calories 3 days per week. 10. The best choice would be to purchase a stationary bike, elliptical or treadmill at home that can track calories. Let me know if you do so I can give you an exercise plan. 11.?Despite the tubal ligation, it is important of avoiding and for at least 18 months postoperatively and has been discussed at the infosession. 12. Goal is to lose at least 1.5-2lbs per week 13. Goal to lose 10% of your weight before surgery, which is about 20lbs. Ultimate weight goal: 184lbs before surgery 14. Please follow the diet plan exactly without any change. If you don't like something about the plan or you feel hungry you need to communicate with me so I can help you revise the plan. You should not change the plan yourself 15. To be scheduled for EGD to assess the stomach's anatomy. The possibility of biopsies was discussed. Patient needs to avoid use of NSAIDs and aspirin for 1 week prior to EGD. You must be on liquids only the day before your endoscopy. Risks of perforation and bleeding was discussed with the patient. This will be an outpatient procedure with IV sedation. Orders: Orders Hemoglobin A1c Today E11.69 - Type 2 diabetes mellitus with other specified complication, E11.9 - Type 2 diabetes mellitus without complications, E66.9 - Obesity, unspecified, E78.2 - Mixed hyperlipidemia, I10 - Essential (primary) hypertension H Pylori Breath Test Today E11.69 - Type 2 diabetes mellitus with other specified complication, E11.9 - Type 2 diabetes mellitus without complications, E66.9 - Obesity, unspecified, E78.2 - Mixed hyperlipidemia, I10 - Essential (primary) hypertension Complete Blood Count Auto Diff Today E11.69 - Type 2 diabetes mellitus with other specified complication, E11.9 - Type 2 diabetes mellitus without complications, E66.9 - Obesity, unspecified, E78.2 - Mixed hyperlipidemia, I10 - Essential (primary) hypertension Lipid Panel Today E11.69 - Type 2 diabetes mellitus with other specified complication, E11.9 - Type 2 diabetes mellitus without complications, E66.9 - Obesity, unspecified, E78.2 - Mixed hyperlipidemia, I10 - Essential (primary) hypertension Comprehensive Met. Panel Today E11.69 - Type 2 diabetes mellitus with other specified complication, E11.9 - Type 2 diabetes mellitus without complications, E66.9 - Obesity, unspecified, E78.2 - Mixed hyperlipidemia, I10 - Essential (primary) hypertension Vitamin B1 Today E11.69 - Type 2 diabetes mellitus with other specified complication, E11.9 - Type 2 diabetes mellitus without complications, E66.9 - Obesity, unspecified, E78.2 - Mixed hyperlipidemia, I10 - Essential (primary) hypertension Ferritin Today E11.69 - Type 2 diabetes mellitus with other specified complication, E11.9 - Type 2 diabetes mellitus without complications, E66.9 - Obesity, unspecified, E78.2 - Mixed hyperlipidemia, I10 - Essential (primary) hypertension FL upper GI w air Today E11.69 - Type 2 diabetes mellitus with other specified complication, E11.9 - Type 2 diabetes mellitus without complications, E66.9 - Obesity, unspecified, E78.2 - Mixed hyperlipidemia, I10 - Essential (primary) hypertension Insulin Today E11.69 - Type 2 diabetes mellitus with other specified complication, E11.9 - Type 2 diabetes mellitus without complications, E66.9 - Obesity, unspecified, E78.2 - Mixed hyperlipidemia, I10 - Essential (primary) hypertension IRON PROFILE Today E11. - Type 2 diabetes mellitus with other specified complication, E11.9 - Type 2 diabetes mellitus without complications, E66.9 - Obesity, unspecified, E78.2 - Mixed hyperlipidemia, I10 - Essential (primary) hypertension Vitamin B12 and Folate Today . - Type 2 diabetes mellitus with other specified complication, E11.9 - Type 2 diabetes mellitus without complications, E66.9 - Obesity, unspecified, E78.2 - Mixed hyperlipidemia, I10 - Essential (primary) hypertension Zinc Today . - Type 2 diabetes mellitus with other specified complication, E11.9 - Type 2 diabetes mellitus without complications, E66.9 - Obesity, unspecified, E78.2 - Mixed hyperlipidemia, I10 - Essential (primary) hypertension C Reactive Protein Today . - Type 2 diabetes mellitus with other specified complication, E11.9 - Type 2 diabetes mellitus without complications, E66.9 - Obesity, unspecified, E78.2 - Mixed hyperlipidemia, I10 - Essential (primary) hypertension Vitamin A Today . - Type 2 diabetes mellitus with other specified complication, E11.9 - Type 2 diabetes mellitus without complications, E66.9 - Obesity, unspecified, E78.2 - Mixed hyperlipidemia, I10 - Essential (primary) hypertension TSH reflex Free T4 Today . - Type 2 diabetes mellitus with other specified complication, E11.9 - Type 2 diabetes mellitus without complications, E66.9 - Obesity, unspecified, E78.2 - Mixed hyperlipidemia, I10 - Essential (primary) hypertension Vitamin D 25-OH Total Today . - Type 2 diabetes mellitus with other specified complication, E11.9 - Type 2 diabetes mellitus without complications, E66.9 - Obesity, unspecified, E78.2 - Mixed hyperlipidemia, I10 - Essential (primary) hypertension US abdomen comp w elastography Today E11. - Type 2 diabetes mellitus with other specified complication, E11.9 - Type 2 diabetes mellitus without complications, E66.9 - Obesity, unspecified, E78.2 - Mixed hyperlipidemia, I10 - Essential (primary) hypertension XR chest 2V Today . - Type 2 diabetes mellitus with other specified complication, E11.9 - Type 2 diabetes mellitus without complications, E66.9 - O besity, unspecified, E78.2 - Mixed hyperlipidemia, I10 - Essential (primary) hypertension ECG 12 lead EKG Today E11.69 - Type 2 diabetes mellitus with other specified complication, E11.9 - Type 2 diabetes mellitus without complications, E66.9 - Obesity, unspecified, E78.2 - Mixed hyperlipidemia, I10 - Essential (primary) hypertension Referrals 2 Behavioral Health Referral E11.69 - Type 2 diabetes mellitus with other specified complication, E11.9 - Type 2 diabetes mellitus without complications, E66.9 - Obesity, unspecified, E78.2 - Mixed hyperlipidemia, I10 - Essential (primary) hypertension Nutrition/Dietitian Referral E11.69 - Type 2 diabetes mellitus with other specified complication, E11.9 - Type 2 diabetes mellitus without complications, E66.9 - Obesity, unspecified, E78.2 - Mixed hyperlipidemia, I10 - Essential (primary) hypertension
[2024-11-18 09:11] VITALS: BMI 37.3
== END 2024-11-18 09:45 | disposition home or self-care (01) ==
LOC: HO.HBS 08:09
PROVIDERS: PCP Internal Medicine; Visit Provider Surgery
DX: E66.9 Obesity, unspecified (principal)
CPT/HCPCS: 99204

== ENCOUNTER 2025-01-20 10:14 | Outpatient (AMB) | payer OTHER, SELFPAY ==
[2025-01-20 11:44] VITALS: BP 118/80; PULSE 97; RESP 16; TEMP 36.8; O2SAT 98; BMI 38.4
--- NOTE | 2025-01-20 11:44 | AM.OFFWIN_ITS ---
Intake Vital Signs 01/20/25 11:44 Height 5 ft 2 in Weight 210 lb BMI 38.4 BP 118/80 Blood Pressure Location Lt brachial Position Sitting Respiration 16 Pulse 97 Pulse Source Pulse Oximeter Temp 98.2 F Temp Source Oral Pulse Oximetry (%) 98 Oxygen Delivery Method Room Air Intake Visit Reasons: EP-lt breast [id number] Intake Note: Pt is here today c/o Lt side of breast ?cyst Patient Tobacco Use Status: Current everyday Tobacco user Allergies Penicillins Allergy (Intermediate, Verified 01/20/25 11:53) Hives HPI HPI Comments History of Present Illness Details History of Present Illness - The patient is a 34-year-old female pr esenting with recurrent cysts and possible skin infection. - Reports recurrent cysts under the [address], with about 30 occurrences, resolving spontaneously without pus or blood but are painful. - Current cyst appeared three days ago, associated with erythema and pain, no prior medical evaluation sought. - She has no discharge or bleeding. - She states that her cysts come and inf lame then resolve on their own. - She gets similar ones all over her bod y. - History of diabetes mellitus, potentia lly contributing to skin infections. - She denies discharge, bleeding, rednes s, warmth, induration, fever, or chills. Physical Exam General: Cooperative, healthy appearing, comfortable, no acute distress and well developed Orientation: Patient oriented x3 Respiratory: Normal respiratory effort and able to speak in complete sentences. Clear to auscultation bilaterally Cardiovascular: Regular rate and rhythm. Normal S1 and S2 Skin: Redness noted under the left breast and TTP. no pus or blood present. No fluctuance noted. Patient was informed and verbally consented to the use of an ambient scribe for clinic note documentation during this visit. [facility] Medical History (Updated 11/24/24 @ 12:31 by Margie Ardon RN) GERD (gastroesophageal reflux disease) Non-insulin dependent type 2 diabetes mellitus Mixed hyperlipidemia due to type 2 diabetes mellitus Vitamin D deficiency Diabetes mellitus Obesity (BMI 30-39.9) Smoker HGSIL (high grade squamous intraepithelial lesion) on Pap smear of cervix Surgical History History of loop electrical excision procedure (LEEP) History of colposcopy (~08/26/23) Hx of tubal ligation Family History Paternal Grandfather Colon cancer Social History Household Members: None Housing: Apartment Alcohol intake: never Patient Tobacco Use Status: Current everyday Tobacco user Tobacco use type: Cigarette Cigarette Packs Per Day: 0.25 Cigarettes Per Day: 4 Years Smoked: 7 e-Cigarette/Vaping Use: Never Used Second Hand Smoke Exposure: Yes service: No Current occupational status: unemployed Cognitive needs: No Hearing needs: No Vision needs: No Female Reproductive History Menstrual Age of Menarche: 11 Review of Systems Const All systems reviewed & are unremarkable except as noted in HPI and below Physical Exam Vital Signs: Last Vital Signs Temp 98.2 F 01/20/25 11:44 Pulse 97 01/20/25 11:44 Resp 16 01/20/25 11:44 BP 118/80 01/20/25 11:44 Pulse Ox 98 01/20/25 11:44 Oxygen Delivery Method Room Air 01/20/25 11:44 BMI result Body Mass Index 38.4 Assessment & Plan Assessment & Plan (1) Breast lesion: Code(s): N64.9 - Disorder of breast, unspecified Plan Most likely cyst vs abscess vs hydradenitis vs folliculitis plan - Monitor cysts for changes such as drainage, bleeding, redness, fever, etc - consider dermatological consultation if recurrence persists. - Prescribed oral antibiotics and topical lotion - monitor for worsening infection signs. - tylenol or motrin as needed for pain - follow up with PCP Medications: New mupirocin 2% 1 appl topical TID 22 grams 0RF doxycycline hyclate 100 mg PO BID 14 tabs 0RF Coding Level of Care Code Est Pt Level 3 (60756) Diagnoses Breast lesion N64.9
== END 2025-01-20 12:45 | disposition home or self-care (01) ==
PROVIDERS: PCP Internal Medicine; Visit Provider Physician Assistant Medical
DX: N64.9 Disorder of breast, unspecified (principal)

== ENCOUNTER → 2025-01-20 10:14 | Outpatient (BNVA) | payer OTHER, SELFPAY | PROVIDERS: PCP Internal Medicine; Visit Provider Physician Assistant Medical | DX: K21.9 Gastro-esophageal reflux disease without esophagitis (principal); N64.89 Other specified disorders of breast | CPT/HCPCS: 99212 ==

== ENCOUNTER 2025-02-02 09:11 | Outpatient (AMB) | payer OTHER, SELFPAY ==
--- OUTSIDE RECORDS SUMMARY | 2023-11-09 05:00 | XMS_ITS ---
Author Organization [facility] Address [address] [place], [place] [id number] Care Team Providers Care Compliance Review Officer Name Role Phone Migration, Provider Unavailable Unavailable REASON FOR VISIT EMR-Joseph Encounters Encounter Location Date Provider Diagnosis [address] [id number] 11/09/2023 Provider Migration Plan Of Treatment No Information Progress Notes * FREDERIC GARZAOB:[birth year] (34 yo F)Acc No.[id number]:11/09/2023 Patient: Rajesh LUCHOSUNSHINE SINGHLAUREN :1990 A ge:32 Y S ex:Female Address:[address] [place] [address] Subjective: * Chief Complaints: * E MR-Joseph * Medical History: * Surgical History: * Hospitalization/Major Diagno stic Procedure: * Medications: Objective: * Vitals: * Physical Examination: Assessment: Plan: * Treatment: * Procedure Codes: * * Date:
--- OUTSIDE RECORDS SUMMARY | 2023-11-10 05:00 | XMS_ITS ---
Author Organization [facility] Address [address], [place] [id number] Care Team Providers Care Repairer Helper Name Role Phone Migration, Provider Unavailable Unavailable REASON FOR VISIT EMR-Joseph Encounters Encounter Location Date Provider Diagnosis [address] [id number] 11/10/2023 Provider Migration Plan Of Treatment No Information Progress Notes * FREDERIC GARZAOB:[birth year] (34 yo F)Acc No.[id number]:11/10/2023 Patient: Rajesh LUCHOSUNSHINE SINGHLAUREN :1990 A ge:32 Y S ex:Female Address:[address] [place] [address] Subjective: * Chief Complaints: * E MR-Joseph * Medical History: * Surgical History: * Hospitalization/Major Diagno stic Procedure: * Medications: Objective: * Vitals: * Physical Examination: Assessment: Plan: * Treatment: * Procedure Codes: * * Date:
--- NOTE | 2025-02-02 09:18 | MHC.OFFWIV ---
Intake Vital Signs 02/02/25 09:19 Height 5 ft 2 in Weight 211 lb BMI 38.6 BP 126/88 Blood Pressure Location Lt brachial Position Sitting Pulse 96 Pulse Source Pulse Oximeter Temp 98.5 F Temp Source Oral Pulse Oximetry (%) 97 Oxygen Delivery Method Room Air Intake Visit Reasons: EP-between legs lump (ghada) Intake Note: pt presents with recurrent large blistering lesions on upper thighs- they do not leak , also is getting them on the breasts Patient Tobacco Use Status: Current everyday Tobacco user Allergies Penicillins Allergy (Intermediate, Verified 02/02/25 09:19) Hives Do you need a note to return to daycare/school/sports/work: No HPI HPI Comments History of Present Illness Details 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 History of Present Illness - The patient is a 34-year-old female presenting with a history of recent breast infection and new onset of groin infection. - The breast infection was treated with antibiotics two weeks ago and has since dried up. - The patient now reports similar symptoms in the groin area, with painful lumps that are indurated and some with a head. - The patient experiences recurrent skin abscesses that enlarge, become painful, and resolve spontaneously without drainage. - The patient inquired about potential causes and preventative measures for these recurrent infections. Physical Exam General: Cooperative, healthy appearing, comfortable, no acute distress and well developed Orientation: Patient oriented x3 Limitations: No limitations Head: Normal to inspection Ears: Hearing grossly normal bilaterally Nose: Normal External nose present Face and sinus: Normal facial exam Eyes: Appearance normal, both eyes and all related structures Neck: Normal visual inspection and Yes full ROM Respiratory: Normal respiratory effort and able to speak in complete sentences. Skin: right buttocks 1.5cm indurated erythematous lesion, no warmth or drainage. also left buttocks pinpoint purulence and induration, no warmth or drainage. left lateral breast with healing abscess, dried skin, soft, no drainage or warmth Neuro: Patient oriented x3 Extremities: Normal to inspection [facility] Medical History (Updated 02/02/25 @ 09:59 by Dot Hylton PA-C) GERD (gastroesophageal reflux disease) Non-insulin dependent type 2 diabetes mellitus Mixed hyperlipidemia due to type 2 diabetes mellitus Vitamin D deficiency Diabetes mellitus Obesity (BMI 30-39.9) Smoker HGSIL (high grade squamous intraepithelial lesion) on Pap smear of cervix Surgical History History of loop electrical excision procedure (LEEP) History of colposcopy (~08/26/23) Hx of tubal ligation Family History Paternal Grandfather Colon cancer Social History Household Members: None Housing: Apartment Alcohol intake: never Patient Tobacco Use Status: Current everyday Tobacco user Tobacco use type: Cigarette Cigarette Packs Per Day: 0.25 Cigarettes Per Day: 4 Years Smoked: 7 e-Cigarette/Vaping Use: Never Used Second Hand Smoke Exposure: Yes service: No Current occupational status: unemployed Cognitive needs: No Hearing needs: No Vision needs: No Female Reproductive History Menstrual Age of Menarche: 11 Review of Systems Const All systems reviewed & are unremarkable except as noted in HPI and below Physical Exam Vital Signs: Last Vital Signs Temp 98.5 F 02/02/25 09:19 Pulse 96 02/02/25 09:19 BP 126/88 02/02/25 09:19 Pulse Ox 97 02/02/25 09:19 Oxygen Delivery Method Room Air 02/02/25 09:19 BMI result Body Mass Index 38.6 Assessment & Plan Assessment & Plan (1) Abscess: Code(s): L02.91 - Cutaneous abscess, unspecified Plan: Patient was informed and verbally consented to the use of an ambient scribe for clinic note documentation during this visit. - ? HS - The breast infection has resolved with previous antibiotic treatment. - Initiate doxycycline for seven days to treat the groin infection. - Advise the use of Hibiclens decontamination wash to reduce bacterial load and prevent recurrence. - Recommend hot compresses to aid in drainage of the infection. - Discuss the role of skin bacteria in recurrent infections and the importance of hygiene. Medications: New doxycycline hyclate 100 mg PO BID 14 tabs 0RF Coding Level of Care Code Est Pt Level 3 (56112) Diagnoses Abscess L02.91
[2025-02-02 09:19] VITALS: BP 126/88; PULSE 96; TEMP 36.9; O2SAT 97; BMI 38.6
--- OUTSIDE RECORDS SUMMARY | 2025-02-02 10:34 | XMS_ITS | Patient Health Record ---
Author Organization [facility] Address [address] [place], [place] [id number] Support Name Relationship Address Phone RAYMOND GARZA Guarantor Unknown Reason For Referral No Information Plan Of Treatment No Information Insurance Providers Payer Name Payer Address Payer Phone Subscriber Number Group Number Insured Name Patient Relationship to Insured Coverage Start Date Coverage End Date [facility] [address] [place] [id number] RAYMOND GARZA Self - patient is the insured 2022
== END 2025-02-02 10:05 | disposition home or self-care (01) ==
PROVIDERS: PCP Internal Medicine; Visit Provider Physician Assistant
DX: L02.91 Cutaneous abscess, unspecified (principal)

== ENCOUNTER → 2025-02-02 09:11 | Outpatient (BNVA) | payer OTHER, SELFPAY | PROVIDERS: PCP Internal Medicine; Visit Provider Physician Assistant | DX: L02.214 Cutaneous abscess of groin (principal) | CPT/HCPCS: 99212 ==

== ENCOUNTER 2025-02-11 09:12 | Outpatient (AMB) | payer OTHER, SELFPAY ==
--- OUTSIDE RECORDS SUMMARY | 2023-11-09 05:00 | XMS_ITS ---
Author Organization [facility] Address [address] [place], [place] [id number] Care Team Providers Care Debit Agent Name Role Phone Migration, Provider Unavailable Unavailable REASON FOR VISIT EMR-Joseph Encounters Encounter Location Date Provider Diagnosis [address] [id number] 11/09/2023 Provider Migration Plan Of Treatment No Information Progress Notes * FREDERIC GARZAOB:[birth year] (34 yo F)Acc No.[id number]:11/09/2023 Patient: Rajesh LUCHOSUNSHINE SINGHLAUREN :1990 A ge:32 Y S ex:Female Address:[address] [place] [address] Subjective: * Chief Complaints: * E MR-Joseph * Medical History: * Surgical History: * Hospitalization/Major Diagno stic Procedure: * Medications: Objective: * Vitals: * Physical Examination: Assessment: Plan: * Treatment: * Procedure Codes: * * Date:
--- OUTSIDE RECORDS SUMMARY | 2023-11-10 05:00 | XMS_ITS ---
Author Organization [facility] Address [address] [place], [place] [id number] Care Team Providers Care Entertainment Production Professional Name Role Phone Migration, Provider Unavailable Unavailable REASON FOR VISIT EMR-Joseph Encounters Encounter Location Date Provider Diagnosis [address] [id number] 11/10/2023 Provider Migration Plan Of Treatment No Information Progress Notes * FREDERIC GARZAOB:[birth year] (34 yo F)Acc No.[id number]:11/10/2023 Patient: Rajesh LUCHOSUNSHINE SINGHLAUREN :1990 A ge:32 Y S ex:Female Address:[address] [place] [address] Subjective: * Chief Complaints: * E MR-Joseph * Medical History: * Surgical History: * Hospitalization/Major Diagno stic Procedure: * Medications: Objective: * Vitals: * Physical Examination: Assessment: Plan: * Treatment: * Procedure Codes: * * Date:
[2025-02-11 09:28] VITALS: BP 134/86; PULSE 92; TEMP 36.8; O2SAT 98; BMI 38.6
--- NOTE | 2025-02-11 09:28 | MHC.OFFWIV ---
Intake Vital Signs 02/11/25 09:28 Height 5 ft 2 in Weight 211 lb BMI 38.6 BP 134/86 Blood Pressure Location Rt brachial Position Sitting Pulse 92 Pulse Source Pulse Oximeter Temp 98.3 F Temp Source Oral Pulse Oximetry (%) 98 Oxygen Delivery Method Room Air Intake Visit Reasons: ep congested and fever cough Intake Note: pt presents with chest congestion dry cough, head pain, fevers, sinus congestion, fatigue, body aches Patient Tobacco Use Status: Current everyday Tobacco user Allergies Penicillins Allergy (Intermediate, Verified 02/11/25 09:29) Hives Do you need a note to return to daycare/school/sports/work: No HPI HPI Comments History of Present Illness Details History - The patient is a 34-year-old female presenting with a persistent cough and congestion. - The cough has been present since Saturday and is described as dry, with no expectoration. - The patient has been using [id number] medication for chest symptoms, but reports no improvement. - There is no associated sore throat or ear pain, but nasal congestion is present. - The patient is a smoker, which may contribute to respiratory symptoms. - No other household members are reported to be ill. - She denies fever, chills, CP, SOB, abd pain, n/v/d. Physical Exam General: Cooperative, healthy appearing, comfortable and no acute distress Orientation/consciousness: Patient oriented x3 Limitations: No limitations Head: Normal to inspection Ears: Hearing grossly normal bilaterally, external ears normal and TM's normal bilaterally Nose: Congested, normal external nose present, normal nares present, and no nasal discharge present. Face and sinus: Sinuses nontender to palpation. Mouth: Normal oral and palatal mucosa present and moist mucous membranes noted. Throat: Tonsils normal. Uvula is midline. Posterior oropharynx with erythema and no exudates. Eyes: Appearance normal, both eyes and all related structures Neck: Normal visual inspection, full ROM. No lymphadenopathy noted. Respiratory: Clear to auscultation bilaterally. Normal respiratory effort, able to speak in complete sentences. No respiratory distress, not tachypneic, no tripod positioning and no use of accessory muscles. Cardiovascular: Regular rate and rhythm. Normal S1 and S2 Skin: No rashes or lesions noted Patient was informed and verbally consented to the use of an ambient scribe for clinic note documentation during this visit [facility] Medical History (Updated 02/02/25 @ 09:59 by Dot Hylton PA-C) GERD (gastroesophageal reflux disease) Non-insulin dependent type 2 diabetes mellitus Mixed hyperlipidemia due to type 2 diabetes mellitus Vitamin D deficiency Diabetes mellitus Obesity (BMI 30-39.9) Smoker HGSIL (high grade squamous intraepithelial lesion) on Pap smear of cervix Surgical History History of loop electrical excision procedure (LEEP) History of colposcopy (~08/26/23) Hx of tubal ligation Family History Paternal Grandfather Colon cancer Social History Household Members: None Housing: Apartment Alcohol intake: never Patient Tobacco Use Status: Current everyday Tobacco user Tobacco use type: Cigarette Cigarette Packs Per Day: 0.25 Cigarettes Per Day: 4 Years Smoked: 7 e-Cigarette/Vaping Use: Never Used Second Hand Smoke Exposure: Yes service: No Current occupational status: unemployed Cognitive needs: No Hearing needs: No Vision needs: No Female Reproductive History Menstrual Age of Menarche: 11 Review of Systems Const All systems reviewed & are unremarkable except as noted in HPI and below Physical Exam Vital Signs: Last Vital Signs Temp 98.3 F 02/11/25 09:28 Pulse 92 02/11/25 09:28 BP 134/86 02/11/25 09:28 Pulse Ox 98 02/11/25 09:28 Oxygen Delivery Method Room Air 02/11/25 09:28 BMI result Body Mass Index 38.6 Results Reviewed Results Reviewed: reviewed the CXR in the office Assessment & Plan Assessment & Plan (1) Cough: Code(s): R05.9 - Cough, unspecified Qualifiers: Cough type: acute Qualified Code(s): R05.1 - Acute cough Plan Most likely URI vs covid vs RSV vs viral illness plan - will order resp panel to r/o viruses - A chest x-ray is ordered to rule out pneumonia. - Prescriptions include an inhaler, cough medicine, prednisone, and antibiotics. - Congestion is managed with prescribed medications including an inhaler and cough medicine. - Smoking cessation is advised due to increased risk of respiratory complications. - diet as tolerated - follow up with PCP Orders: Orders XR chest 2V Today R05.9 - Cough, unspecified Resp Pathogen Panel - [facility] Today J06.9 - Acute upper respiratory infection, unspecified Medications: New azithromycin For 250 mg dose pack: take 500 mg today (day 1), then 250 mg for 4 days (days 2-5) PO 6 tabs 0RF prednisone 40 mg (2 x 20 mg) PO DAILY 10 tabs 0RF 5 days benzonatate 100 mg PO bid-tid PRN 21 caps 0RF Cough 7 days albuterol sulfate 90 mcg/actuation 2 puffs inhalation Q6H PRN 8.5 grams 0RF shortness of breath or wheezing or cough NS Coding Level of Care Code Est Pt Level 4 (22903) Diagnoses Acute cough R05.1 Cough type: acute
--- OUTSIDE RECORDS SUMMARY | 2025-02-11 10:40 | XMS_ITS | Patient Health Record ---
Author Organization [facility] Address [address], [place] [id number] Support Name Relationship Address Phone RAYMOND GARZA Guarantor Unknown Reason For Referral No Information Plan Of Treatment No Information Insurance Providers Payer Name Payer Address Payer Phone Subscriber Number Group Number Insured Name Patient Relationship to Insured Coverage Start Date Coverage End Date [facility] [address] [place] [id number] RAYMOND GARZA Self - patient is the insured 2022
== END 2025-02-11 10:07 | disposition home or self-care (01) ==
PROVIDERS: PCP Internal Medicine; Visit Provider Physician Assistant Medical
DX: R05.1 Acute cough (principal)

== ENCOUNTER 2025-02-11 09:12 | Outpatient (REF) | payer OTHER, SELFPAY ==
--- NOTE | ~2025-02-11 | XR_ITS ---
EXAMINATION: XR CHEST CLINICAL INFORMATION: R05.9 - Cough, unspecified COMPARISON: None available. TECHNIQUE: 2 views of the chest were obtained. FINDINGS: The cardiac, hilar, and mediastinal contours are normal. The lungs are clear bilaterally. There is no pneumothorax or pleural effusion. There is no focal osseous or soft tissue abnormality. XR/XR chest 2V IMPRESSION: Normal chest. Electronically signed by: Nagi Tucker MD 02/11/2025 10:15 AM EDT
[2025-02-11 15:07] LABS: Chlamydia pneumoniae PCR Not Detected (Not Detect.); Coronavirus 229E PCR Not Detected (Not Detect.); Coronavirus HKU1 PCR Not Detected (Not Detect.); Coronavirus NL63 PCR Not Detected (Not Detect.); Coronavirus OC43 PCR Not Detected (Not Detect.); RSV PCR Not Detected (Not Detect.); Rhino/Enterovirus PCR Not Detected (Not Detect.)
[2025-02-11 15:31] LABS: SARS-CoV-2 PCR Not Detected (Not Detect.)
[2025-02-11 15:32] LABS: Influenza A H1 PCR Not Detected (Not Detect.); Influenza A H1-2009 PCR Not Detected (Not Detect.); Influenza A H3 PCR Not Detected (Not Detect.)
== END 2025-02-11 09:13 | disposition home or self-care (01) ==
LOC: HO.HMGCX 09:12
PROVIDERS: PCP Internal Medicine; Visit Provider Physician Assistant Medical
DX: R05.1 Acute cough (principal)
CPT/HCPCS: 71046; 87633; 99212

== ENCOUNTER → 2025-02-11 10:05 | Outpatient (BNV) | payer OTHER, SELFPAY | PROVIDERS: PCP Internal Medicine; Visit Provider Radiology Diagnostic Radiology | DX: R05.9 Cough, unspecified (principal) | CPT/HCPCS: 71046 ==

== ENCOUNTER 2025-03-01 12:43 | Outpatient (AMB) | payer OTHER, SELFPAY ==
--- OUTSIDE RECORDS SUMMARY | 2023-11-09 05:00 | XMS_ITS ---
Author Organization [facility] Address [address] [place], [place] [phone] Care Team Providers Care Preliminary School Psychologist Name Role Phone Migration, Provider Unavailable Unavailable REASON FOR VISIT EMR-Joseph Encounters Encounter Location Date Provider Diagnosis [address] [id number] 11/09/2023 Provider Migration Plan Of Treatment No Information Progress Notes * FREDERIC GARZAOB:[birth year] (34 yo F)Acc No.[id number]:11/09/2023 Patient: RAYMOND VILLATORO :1990 A ge:32 Y S ex:Female Address:[address] [place] [address] Subjective: * Chief Complaints: * E MR-Joseph * * Date:
--- OUTSIDE RECORDS SUMMARY | 2023-11-10 05:00 | XMS_ITS ---
Author Organization [facility] Address [address], [place] [id number] Care Team Providers Care Business Office Technician Name Role Phone Migration, Provider Unavailable Unavailable REASON FOR VISIT EMR-Joseph Encounters Encounter Location Date Provider Diagnosis [address] [id number] 11/10/2023 Provider Migration Plan Of Treatment No Information Progress Notes * FREDERIC GARZAOB:[birth year] (34 yo F)Acc No.[id number]:11/10/2023 Patient: RAYMOND VILLATORO :1990 A ge:32 Y S ex:Female Address:[address] [place] [address] Subjective: * Chief Complaints: * E MR-Joseph * * Date:
--- NOTE | 2025-03-01 12:46 | A.OFFPC_ITS ---
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 Accompanied by: Self / Same As Patient Allergies Penicillins Allergy (Intermediate, Verified 03/01/25 13:23) Hives Medication List - Last Reconciled 03/01/25 by Dakota Wilkins MD albuterol sulfate 90 mcg/actuation 2 puffs inhalation Q6H PRN blood sugar diagnostic (OneTouch Ultra Test strips) As directed blood-glucose meter (OneTouch Ultra2 Meter) As directed cholecalciferol (vitamin D3) 50 mcg PO DAILY 90 days lisinopril 10 mg PO DAILY metformin 1,000 mg PO BID mupirocin 2% 1 appl topical TID PRN nebulizer and compressor (Vios Aerosol Delivery System) As directed pantoprazole 40 mg PO DAILY Tobacco use date assessed: 03/01/25 Dental Screening Dental Screen Date: 03/01/25 Did you have a dental visit in the last 12 months?: No Did you have a dental problem in the last 6 months where you did not have access to dental care?: No Was dental information given to patient?: No HPI Orthopedics referral request Injury on left foot HPI Details Patient comes in today complaining of increased pain over her left ankle and left knee States that she accidentally slipped and fell while she was mopping the floor at work last Saturday (02/26/25) and ended up twisting her left ankle in the process - states that she somehow ended up sitting on her left foot with her left leg bent over to the other side She went to the ER at [facility] in [place] after her fall and reportedly had x-rays done, which revealed no fractures She was reportedly advised that she has left ankle sprain and left knee contusion and was recommended to see her PCP about getting a referral to see orthopedics for further management Patient is currently still experiencing increased pain over her left ankle and left knee Denies any other acute complaints or issues She denies any headaches or dizziness Denies any chest pains, no SOB No nausea/vomiting, no abdominal pain No change in bowel habits noted COUNTS INCLUDE 234 BEDS AT THE [facility] Medical History (Updated 03/02/25 @ 05:29 by Dakota Wilkins MD) Essential hypertension GERD (gastroesophageal reflux disease) Non-insulin dependent type 2 diabetes mellitus Mixed hyperlipidemia due to type 2 diabetes mellitus Vitamin D deficiency Diabetes mellitus Obesity (BMI 30-39.9) Smoker HGSIL (high grade squamous intraepithelial lesion) on Pap smear of cervix Surgical History History of loop electrical excision procedure (LEEP) History of colposcopy (~08/26/23) Hx of tubal ligation Family History Paternal Grandfather Colon cancer Social History Household Members: None Housing: Apartment Alcohol intake: never Patient Tobacco Use Status: Current everyday Tobacco user Tobacco use type: Cigarette Cigarette Packs Per Day: 0.25 Cigarettes Per Day: 4 Years Smoked: 7 e-Cigarette/Vaping Use: Never Used Second Hand Smoke Exposure: Yes service: No Current occupational status: unemployed Cognitive needs: No Hearing needs: No Vision needs: No Female Reproductive History Menstrual Age of Menarche: 11 Questionnaire Thrive Questionnaire Date Thrive assessed: 09/25/24 I am a: Patient What is your living situation today?: I have a steady place to live Within the past 12 months, did the food you bought not last and you didn't have the money to get more?: I choose not to answer this question Within the past 12 months, did you worry whether your food would run out before you got money to buy more?: I choose not to answer this question Do you have trouble paying for medicines?: I choose not to answer this question Do you have trouble getting transportation to medical appointments?: I choose not to answer this question Do you have trouble paying your heating and electricity bill?: I choose not to answer this question Do you have trouble taking care of your child, family member or friend?: I choose not to answer this question Do you have trouble with day-to-day activities such as bathing, preparing meals, shopping, managing finances, etc.?: I choose not to answer this question Are you currently unemployed and looking for a job?: I choose not to answer this question Are you interested in more education?: I choose not to answer this question Please select the resources that you would like help with: Job search/training Currently or been in a relationship where the following occur: I choose not to answer THRIVE Score: 0 AUDIT C Alcohol Use Questionnaire (AUDIT-C) 1. How often do you have a drink containing alcohol?: Never 3. How often do you have six or more drinks on one occasion?: Never Total Score: 0 Score Reviewed/Action Taken: No JADE-7 AMB Questionnaire JADE-7 Date JADE - 7 assessed: 09/25/24 Source: Developed by Drs. Anthony Oakes, Kendy Ford, Alf Billings and colleagues, with an educational timoteo from [employer]. Review of Systems Const Denies chills, Denies fatigue, Denies fever(s) and Denies headache(s) ENT Denies dysphagia, Denies dizziness, Denies otalgia, Denies headache(s), Denies neck pain, Denies odynophagia and Denies sore throat Card Denies chest pain, Denies palpitations and Denies dyspnea Resp Denies chest congestion, Denies cough and Denies dyspnea GI Denies abdominal pain, Denies constipation, Denies dysphagia, Denies heartburn, Denies diarrhea, Denies nausea, Denies odynophagia and Denies vomiting Denies difficulty voiding, Denies nocturia, Denies dysuria and Denies urinary urgency Musc Denies back pain, Reports arthralgias (over the left knee and left ankle) and Denies neck pain Skin/Breast Denies rash Neuro Denies dizziness and Denies headache(s) Endo Denies fatigue and Denies palpitations Physical exam (Primary Care) Vital Signs: Last Vital Signs Pulse 105 H 03/01/25 12:47 BP 122/84 03/01/25 12:47 Pulse Ox 98 03/01/25 12:47 Oxygen Delivery Method Room Air 03/01/25 12:47 BMI result Body Mass Index 39.0 Tobacco/Smoking Status: Tobacco use Status Tobacco use date assessed 03/01/25 03/01/25 12:48 Patient Tobacco Use Status Current everyday Tobacco 03/01/25 12:48 Tobacco use type Cigarette 03/01/25 12:48 e-Cigarette/Vaping Use Never Used 03/01/25 12:48 Thrive Assessment: Date of Thrive Assessment Date Thrive assessed 09/25/24 03/01/25 12:48 Currently or been in a relationship where the following occur: I choose not to answer Const General: no acute distress and alert Neck Neck: Yes supple and No lymphadenopathy Thyroid: Thyroid normal Resp Auscultation: clear to auscultation bilaterally, no rales and no wheezes Cardio Rate: regular rate Rhythm: regular rhythm Heart sounds: no murmurs GI Palpation (GI): Soft to palpation and nontender Auscultation: normal bowel sounds General: Yes no CVA tenderness Back/Spine/Pelvis Back: no CVA tenderness Thoracic/Lumbar Spine: No lumbar spinal tenderness Skin Rashes: no rashes Extrem General: Yes no clubbing, cyanosis or edema Left lower extremity: knee Details: tenderness; no swelling and ankle Details: tenderness and swelling Details: diffusely Results AMB Hemoglobin A1c AMB Hemoglobin A1c 8.2 % Last Edit by ROMIE Self on 03/01/25 13 :03 Results Reviewed Results Reviewed: Laboratory Last Values Hgb A1c (Clinic) 8.2 % (4.0-6.0) H 03/01/25 12:48 Coding Level of Care Code Est Pt Level 4 (51262) Diagnoses Sprain of left ankle, unspecified ligament, initial encounter S93.402A Encounter type: initial encounter Involved ligament of ankle: unspecified ligament Contusion of left knee, initial encounter S80.02XA Encounter type: initial encounter Type 2 diabetes mellitus with hyperglycemia, without long-term current use of insulin E11.65 Diabetes mellitus type: type 2 Diabetes mellitus prison insulin use: without prison use Diabetes mellitus complication status: with hyperglycemia Mixed hyperlipidemia due to type 2 diabetes mellitus E11.69; E78.2 Essential hypertension I10 Vitamin D deficiency E55.9 Gastroesophageal reflux disease without esophagitis K21.9 Esophagitis presence: without esophagitis Obesity (BMI 30-39.9) E66.9 Assessment & Plan Assessment & Plan (1) Left ankle sprain: Code(s): S93.402A - Sprain of unspecified ligament of left ankle, initial encounter Category: Medical Qualifiers: Encounter type: initial encounter Involved ligament of ankle: unspecified ligament Qualified Code(s): S93.402A - Sprain of unspecified ligament of left ankle, initial encounter Plan: S/P fall about 3 days ago X-rays of the left ankle done at [facility] ER came back negative for fracture Patient currently has an ankle stirrup on her to provide additional support to the ankle and she is advised to keep it on at least until she is seen by orthopedics Will refer her to [facility] Orthopedics for further evaluation and management (2) Contusion of left knee: Code(s): S80.02XA - Contusion of left knee, initial encounter Category: Medical Qualifiers: Encounter type: initial encounter Qualified Code(s): S80.02XA - Contusion of left knee, initial encounter Plan: Left knee x-rays done at [facility] a few days ago also came back negative for acute injuries Per request, will also refer her to orthopedics for further recommendations regarding her left knee injury (3) Diabetes mellitus: Code(s): E11.9 - Type 2 diabetes mellitus without complications Category: Medical Qualifiers: Diabetes mellitus type: type 2 Diabetes mellitus adjunct faculty for medical terminology insulin use: without adjunct faculty for medical terminology use Diabetes mellitus complication status: with hyperglycemia Qualified Code(s): E11.65 - Type 2 diabetes mellitus with hyperglycemia Plan: Her in-office HgbA1c today is at 8.2% (was previously at 7.3% a few months ago in September 2024) - goal is at least <7.0% Reinforced diabetic diet - patient admits to poor compliance with her diet recently Continue Metformin 1000 mg BID for now Have advised patient that if she cannot get her diabetes back under control over the next few months, then we will need to make some changes to her current Rx and also consider referring her to endocrinology for further management Will have her recheck her labs and HgbA1c in a few months for follow up (4) Mixed hyperlipidemia due to type 2 diabetes mellitus: Code(s): E11.69 - Type 2 diabetes mellitus with other specified complication; E78.2 - Mixed hyperlipidemia Category: Medical Plan: Reinforced low-cholesterol diet Will have patient recheck his labs and fasting lipids in 4 months for follow-up (5) Essential hypertension: Code(s): I10 - Essential (primary) hypertension Category: Medical Plan: Reinforced low-sodium diet - goal is systolic BP of 120 mm or less Continue Lisinopril 10 mg QD (6) Vitamin D deficiency: Code(s): E55.9 - Vitamin D deficiency, unspecified Category: Medical Plan: Continue Vitamin D3 2000 units QD (7) GERD (gastroesophageal reflux disease): Code(s): K21.9 - Gastro-esophageal reflux disease without esophagitis Category: Medical Qualifiers: Esophagitis presence: without esophagitis Qualified Code(s): K21.9 - Gastro-esophageal reflux disease without esophagitis Plan: Dietary restrictions reinforced Continue Pantoprazole 40 mg QD (8) Obesity (BMI 30-39.9): Code(s): E66.9 - Obesity, unspecified Category: Medical Plan: Reinforced diet/exercise as tolerated/lose weight Plan To return in 4 months for her annual physical examination Orders: Orders AMB Hemoglobin A1c 03/01/25 Z13.9 - Encounter for screening, unspecified Complete Blood Count Auto Diff 06/26/25 D64.9 - Anemia, unspecified, Z00.00 - Encounter for general adult medical examination without abnormal findings TSH reflex Free T4 06/26/25 E78.00 - Pure hypercholesterolemia, unspecified, Z00.00 - Encounter for general adult medical examination without abnormal findings UA CC w/rflx Micro + Cult 06/26/25 R30.0 - Dysuria, Z00.00 - Encounter for general adult medical examination without abnormal findings Comprehensive [place]. Panel Fast 06/26/25 E78.00 - Pure hypercholesterolemia, unspecified, Z00.00 - Encounter for general adult medical examination without abnormal findings Lipid Panel 06/26/25 E78.00 - Pure hypercholesterolemia, unspecified, Z00.00 - Encounter for general adult medical examination without abnormal findings Microalbumin, Random (w Creat) 06/26/25 E11.9 - Type 2 diabetes mellitus without complications, Z00.00 - Encounter for general adult medical examination without abnormal findings Hemoglobin A1c 06/26/25 E11.9 - Type 2 diabetes mellitus without complications, Z00.00 - Encounter for general adult medical examination without abnormal findings Vitamin D 25-OH Total 06/26/25 E55.9 - Vitamin D deficiency, unspecified, Z00.00 - Encounter for general adult medical examination without abnormal findings Vitamin B12 and Folate 06/26/25 E53.8 - Deficiency of other specified B group vitamins, Z00.00 - Encounter for general adult medical examination without abnormal findings Referrals Orthopedics Referral S80.02XA - Contusion of left knee, initial encounter, S93 .402A - Sprain of unspecified ligament of left ankle, initial encounter
[2025-03-01 12:47] VITALS: BP 122/84; PULSE 105; O2SAT 98; BMI 39.0
--- OUTSIDE RECORDS SUMMARY | 2025-03-01 15:07 | XMS_ITS | Patient Health Record ---
Author Organization [facility] Address [address], [place] [id number] Support Name Relationship Address Phone RAYMOND GARZA Guarantor Unknown [phone] Reason For Referral No Information Plan Of Treatment No Information Insurance Providers Payer Name Payer Address Payer Phone Subscriber Number Group Number Insured Name Patient Relationship to Insured Coverage Start Date Coverage End Date [facility] [address] [place] [address] [id number] RAYMOND GARZA Self - patient is the insured 2022
== END 2025-03-01 13:44 | disposition home or self-care (01) ==
LOC: HO.HMCH 12:44
PROVIDERS: PCP Internal Medicine; Visit Provider Internal Medicine
DX: Z13.9 Encounter for screening, unspecified (principal)

== ENCOUNTER → 2025-03-01 12:43 | Outpatient (BNVA) | payer OTHER, SELFPAY | PROVIDERS: PCP Internal Medicine; Visit Provider Internal Medicine | DX: S93.402A Sprain of unspecified ligament of left ankle, initial encounter (principal); S80.02XA Contusion of left knee, initial encounter; E11.65 Type 2 diabetes mellitus with hyperglycemia; M25.572 Pain in left ankle and joints of left foot; M25.562 Pain in left knee; E11.69 Type 2 diabetes mellitus with other specified complication; E78.2 Mixed hyperlipidemia; I10 Essential (primary) hypertension; E55.9 Vitamin D deficiency, unspecified; K21.9 Gastro-esophageal reflux disease without esophagitis; E66.9 Obesity, unspecified; D64.9 Anemia, unspecified; E78.00 Pure hypercholesterolemia, unspecified; R30.0 Dysuria; E11.9 Type 2 diabetes mellitus without complications; E53.8 Deficiency of other specified B group vitamins; W01.0XXA Fall on same level from slipping, tripping and stumbling without subsequent striking against object, initial encounter; Y93.E5 Activity, floor mopping and cleaning; Y92.9 Unspecified place or not applicable; Y99.0 Civilian activity done for income or pay | CPT/HCPCS: 83036; 99212 ==

== ENCOUNTER 2025-03-04 10:56 | Outpatient (AMB) | payer OTHER, SELFPAY ==
--- NOTE | 2025-03-04 11:20 | A.OFFVIS_ITS ---
Vital Signs 03/04/25 11:21 Height 5 ft 2 in Weight 213 lb BMI 39.0 Intake Visit Reasons: New Patient -WC - Left Ankle Sprain 02/26/25 Intake Note: Salvador is a 34 year old female who presents today as a New Patient for complaints of Left Ankle Pain. This is a work related injury. 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 When she fell she landed sitting on her left ankle. She was seen at [facility] and she was provided with a brace and crutches and she was prescribed pain medication but she does not find relief for her pain symptoms. She has no prior history of spraining her ankle.Patient mentions pain is located through out her whole ankle and when she applies weight it feels like she is getting poked with needles Allergies Penicillins Allergy (Intermediate, Verified 03/04/25 11:21) Hives [facility] HPI New Patient -WC - Left Ankle Sprain 02/26/25: Details: The patient is a 34-year-old female past medical history diabetes mellitus type 2, hypertension who presents for left ankle injury. The injury occurred approximately one week ago when the patient slipped and fell at work, resulting in immediate inability to walk. Initially, the patient managed the injury by resting the foot in a freezer at work and using a chair for support. She went to the emergency room and received x-rays which she told were negative. She was discharged with crutches and a stirrup ankle brace. She states that she is unable to tolerate the ankle brace and it makes her pain worse. The patient reports that the pain has progressively worsened, particularly at night, despite attempts at pain management with her current medication. She is currently icing and elevating her ankle at home. She is out of work for 2 weeks. She denies a history of ankle sprains, denies any new injuries or falls since then. [facility] Medical History (Updated 03/04/25 @ 12:05 by Aakash Espinosa DPM) Essential hypertension GERD (gastroesophageal reflux disease) Non-insulin dependent type 2 diabetes mellitus Mixed hyperlipidemia due to type 2 diabetes mellitus Vitamin D deficiency Diabetes mellitus Obesity (BMI 30-39.9) Smoker HGSIL (high grade squamous intraepithelial lesion) on Pap smear of cervix Surgical History History of loop electrical excision procedure (LEEP) History of colposcopy (~08/26/23) Hx of tubal ligation Family History Paternal Grandfather Colon cancer Social History Household Members: None Housing: Apartment Alcohol intake: never Patient Tobacco Use Status: Current everyday Tobacco user Tobacco use type: Cigarette Cigarette Packs Per Day: 0.25 Cigarettes Per Day: 4 Years Smoked: 7 e-Cigarette/Vaping Use: Never Used Second Hand Smoke Exposure: Yes service: No Current occupational status: unemployed Cognitive needs: No Hearing needs: No Vision needs: No Female Reproductive History Menstrual Age of Menarche: 11 Review of Systems Const All systems reviewed & are unremarkable except as noted in HPI and below Physical Exam Vital Signs: BMI result Body Mass Index 39.0 Extrem Other: *Bilateral Lower Extremity Focused Foot/Ankle Exam Vascular: DP/PT 2/4, CFT<3s to digits, TG warm to cool, moderate left lateral ankle edema, pedal hair present Derm: Mild Ecchymosis present to the left lateral ankle. Neuro: Protective sensation grossly intact to bilateral lower extremities. Negative Tinel sign to the intermediate dorsal cutaneous nerve. Msk: Moderate pain on palpation along the left lateral ankle ligaments. Moderate tenderness on palpation of the peroneal tendons retromalleolar groove. Eversion strength intact 4+/5 limited by some guarding. No Pain on palpation along the deltoid ligament left ankle No Pain on palpation along the syndesmosis left ankle Guarding anterior drawer sign of the left ankle Negative stress eversion of the left ankle Negative stress external rotation of the left ankle Deformities: No evidence of hammertoes, bunions, Charcot changes, or other structural abnormalities. Gait: Antalgic full Weight-bearing in aircast Office Procedures AMB Podiatry Dressing Details of Procedure: Procedure: Strapping of the foot/ankle Indication: Left lower extremity ankle sprain Description: A compression wrap was applied using 4in Arnold bandage with the ankle held in neutral position. Tolerance: Patient tolerated procedure well, no immediate complications. 83042 - Strapping of foot/ankle Procedure code (CPT) selection complete Assessment & Plan Assessment & Plan (1) Left ankle sprain: Code(s): S93.402A - Sprain of unspecified ligament of left ankle, initial encounter Category: Medical Qualifiers: Encounter type: initial encounter Involved ligament of ankle: anterior talofibular ligament Qualified Code(s): S93.492A - Sprain of other ligament of left ankle, initial encounter Plan: * The patient was instructed to obtain her x-rays from her other hospital and to drop them off for the clinic, or 2 otherwise received new x-rays. New foot and ankle x-ray orders were placed today. * The patient has at least a grade 2 ankle sprain, injuring the lateral ankle ligaments and straightening of the peroneal tendons with noticeable swelling. The patient still has eversion strength, with no signs of a tendon rupture at this point however she may require an MRI if this changes in the future. Unable to assess gait due to antalgic weight-bearing due to ankle sprain pain at this time.. * The patient was instructed to rest, ice, compress and elevate. * An Arnold bandage was applied to the left lower extremity with the ankle held in neutral position. * The patient was recommended weight-bearing with Cam boot with crutches as needed. The patient was instructed to take the supportive device off when sleeping. * The patient was given a handout of passive range of motion exercises to perform at home. * It was explained that if pain and symptoms persist by the next visit, they may be referred for physical therapy. * A work note was given to be out of work until 03/19/2025. * Rx diclofenac 75 mg b.i.d.. * Follow up in 2 weeks. Orders: Orders XR ankle LT min 3V Today S93.492A - Sprain of other ligament of left ankle, initial encounter AMB Podiatry Dressing Today S93.402A - Sprain of unspecified ligament of left ankle, initial encounter XR foot LT min 3V Today S93.492A - Sprain of other ligament of left ankle, initial encounter Medications: New diclofenac sodium Take 1 pill twice a day with food. 75 mg PO BID PRN 30 tabs 1RF ankle sprain S93.402A - Sprain of unspecified ligament of left ankle, initial encounter Coding Level of Care Code New Pt Level 4 (53341) Diagnoses Sprain of anterior talofibular ligament of left ankle, initial encounter S93. 492A Encounter type: initial encounter Involved ligament of ankle: anterior talofibular ligament CPT Codes Podiatry Dressing - CPT: 49453 - Strapping of foot/ankle ([id number]) Time Spent (min) 30 Comment Prescribed medication, ordered x-ray
[2025-03-04 11:21] VITALS: BMI 39.0
== END 2025-03-04 11:41 | disposition home or self-care (01) ==
LOC: HO.HPODS 10:57
PROVIDERS: PCP Internal Medicine; Visit Provider Student in an Organized Health Care Education/Training Program
DX: S93.492A Sprain of other ligament of left ankle, initial encounter (principal); Z04.3 Encounter for examination and observation following other accident
CPT/HCPCS: 99203

== ENCOUNTER → 2025-03-04 10:56 | Outpatient (BNVA) | payer OTHER, SELFPAY | PROVIDERS: PCP Internal Medicine; Visit Provider Student in an Organized Health Care Education/Training Program | DX: S93.492A Sprain of other ligament of left ankle, initial encounter (principal); E11.9 Type 2 diabetes mellitus without complications; I10 Essential (primary) hypertension; W01.0XXA Fall on same level from slipping, tripping and stumbling without subsequent striking against object, initial encounter; Y93.9 Activity, unspecified; Y92.9 Unspecified place or not applicable; Y99.0 Civilian activity done for income or pay | CPT/HCPCS: 99202 ==

== ENCOUNTER 2025-03-16 09:27 | Outpatient (REF) | payer OTHER, SELFPAY ==
--- NOTE | ~2025-03-16 | XR_ITS ---
EXAMINATION: XR ANKLE 3 OR MORE VIEWS LEFT, XR FOOT 3 OR MORE VIEWS LEFT HISTORY: S93.492A - Sprain of other ligament of left ankle, initial encounter COMPARISON: There are no prior studies available for comparison. FINDINGS: Six views of the left foot and ankle are submitted. Osseous mineralization is normal. There is no fracture or dislocation. The joint spaces are preserved. The soft tissues are unremarkable. XR/XR ankle LT min 3V IMPRESSION: Unremarkable examination of the left foot and ankle. Electronically signed by: Anthony Duran MD 03/16/2025 09:52 AM EDT
--- NOTE | ~2025-03-16 | XR_ITS ---
EXAMINATION: XR ANKLE 3 OR MORE VIEWS LEFT, XR FOOT 3 OR MORE VIEWS LEFT HISTORY: S93.492A - Sprain of other ligament of left ankle, initial encounter COMPARISON: There are no prior studies available for comparison. FINDINGS: Six views of the left foot and ankle are submitted. Osseous mineralization is normal. There is no fracture or dislocation. The joint spaces are preserved. The soft tissues are unremarkable. XR/XR foot LT min 3V IMPRESSION: Unremarkable examination of the left foot and ankle. Electronically signed by: Anthony Duran MD 03/16/2025 09:52 AM EDT
== END 2025-03-16 09:28 | disposition home or self-care (01) ==
LOC: HO.XRAY 09:27
PROVIDERS: PCP Internal Medicine; Visit Provider Student in an Organized Health Care Education/Training Program
DX: S93.492A Sprain of other ligament of left ankle, initial encounter (principal)
CPT/HCPCS: 73610; 73630

== ENCOUNTER → 2025-03-16 09:32 | Outpatient (BNV) | payer OTHER, SELFPAY | PROVIDERS: PCP Internal Medicine; Visit Provider Radiology Diagnostic Radiology | DX: S93.492A Sprain of other ligament of left ankle, initial encounter (principal) | CPT/HCPCS: 73610; 73630 ==

== ENCOUNTER 2025-03-18 09:30 | Outpatient (AMB) | payer OTHER, SELFPAY ==
[2025-03-18 09:44] VITALS: BMI 39.0
--- NOTE | 2025-03-18 09:44 | A.OFFVIS_ITS ---
Vital Signs 03/18/25 09:44 Height 5 ft 2 in Weight 213 lb BMI 39.0 Intake Visit Reasons: Left Ankle Sprain Intake Note: Salvador is a 34 year old female who presents today for a follow up on her left ankle sprain. During her last visit she was provided with a walking boot. Pt States she has been using the walking boot and finds that her ankle pain and swelling continues even with the boot. She has not seen any improvement and has no further questions or concerns. Allergies Penicillins Allergy (Intermediate, Verified 03/04/25 11:21) Hives HPI HPI Left Ankle Sprain: Details: The patient is a 34-year-old female past medical history diabetes mellitus type 2, hypertension who returns for 2 week follow up for left ankle injury. She is still out of work. She notes that she was unable to tolerate her cam boot due to swelling at the end of the day since she is ambulating without any assistive device currently. She still complains of ankle pain, now worst to the front of her ankle. She has been taking diclofenac however it had upset her stomach, so she started breaking the pills in half and taking half the dose. She is requesting an alternate medication. HistoryL The injury occurred approximately 1st week of February when the patient slipped and fell at work, resulting in immediate inability to walk. Initially, the patient managed the injury by resting the foot in a freezer at work and using a chair for support. She went to the emergency room and received x-rays which she told were negative. She was discharged with crutches and a stirrup ankle brace. The patient reports that the pain had progressively worsened, pa rticularly at night, despite attempts at pain management. She denies a history of ankle sprains, denies any new injuries or falls since then. [facility] Medical History (Updated 03/18/25 @ 10:09 by Aakash Espinosa DPM) Essential hypertension GERD (gastroesophageal reflux disease) Non-insulin dependent type 2 diabetes mellitus Mixed hyperlipidemia due to type 2 diabetes mellitus Vitamin D deficiency Diabetes mellitus Obesity (BMI 30-39.9) Smoker HGSIL (high grade squamous intraepithelial lesion) on Pap smear of cervix Surgical History History of loop electrical excision procedure (LEEP) History of colposcopy (~08/26/23) Hx of tubal ligation Family History Paternal Grandfather Colon cancer Social History Household Members: None Housing: Apartment Alcohol intake: never Patient Tobacco Use Status: Current everyday Tobacco user Tobacco use type: Cigarette Cigarette Packs Per Day: 0.25 Cigarettes Per Day: 4 Years Smoked: 7 e-Cigarette/Vaping Use: Never Used Second Hand Smoke Exposure: Yes service: No Current occupational status: unemployed Cognitive needs: No Hearing needs: No Vision needs: No Female Reproductive History Menstrual Age of Menarche: 11 Physical Exam Vital Signs: BMI result Body Mass Index 39.0 Extrem Other: *Bilateral Lower Extremity Focused Foot/Ankle Exam Vascular: DP/PT 2/4, CFT<3s to digits, TG warm to cool, mild left lateral ankle edema, pedal hair present Derm: No ecchymosis present to the left lateral ankle. Neuro: Protective sensation grossly intact to bilateral lower extremities. Negative Tinel sign to the intermediate dorsal cutaneous nerve. Msk: Moderate pain on palpation along the left lateral ankle ligaments. Moderate pain on palpation of the anterior extensor tendons. Decreased, mild tenderness on palpation of the peroneal tendons retromalleolar groove. Eversion strength intact 4+/5, improving. No Pain on palpation along the deltoid ligament left ankle No Pain on palpation along the syndesmosis left ankle Guarding anterior drawer sign of the left ankle Negative stress eversion of the left ankle Negative stress external rotation of the left ankle Deformities: No evidence of hammertoes, bunions, Charcot changes, or other structural abnormalities. Gait: Antalgic full Weight-bearing in aircast Results Reviewed Results Reviewed: Podiatry X-ray Read: 03/16/2025 X-ray left foot 3 views (AP, MO, Lateral) reviewed which shows no fractures, dislocations, or gross abnormalities. Bone density is within normal limits. Normal anatomy. No evidence of swelling, foreign body, or calcifications. I personally reviewed the imaging and my findings are listed above. Podiatry X-ray Read: 03/16/2025 X-ray [right/left] ankle 3 views (AP, Mortise, Lateral) reviewed which shows no fractures, dislocations, osteochondral defects, or gross abnormalities. Anatomic alignment of the tibiotalar joint. Bone density is within normal limits. No evidence of swelling, foreign body, or calcifications. I personally reviewed the imaging and my findings are listed above. Assessment & Plan Assessment & Plan (1) Left ankle sprain: Code(s): S93.402A - Sprain of unspecified ligament of left ankle, initial encounter Category: Medical Qualifiers: Encounter type: initial encounter Involved ligament of ankle: anterior talofibular ligament Qualified Code(s): S93.492A - Sprain of other ligament of left ankle, initial encounter Plan: * Reviewed left foot and ankle x-rays with the patient. * The patient has at least a grade 2 ankle sprain, injuring the lateral ankle ligaments, and nail straightening the anterior extensor tendons. * The patient was instructed to continue to rest, ice, compress and elevate. * Discontinue Cam boot. Transition to lace-up ankle brace. * The patient was given a handout of passive range of motion exercises to perform at home. * She was referred to physical therapy. * A work note was given to be out of work until 04/20/2025. * Discontinue diclofenac. Rx Celebrex. * Follow up in 3 weeks. She may require an MRI if symptoms persist. (2) Tendinitis of left ankle: Code(s): M77.52 - Other enthesopathy of left foot and ankle Category: Medical Plan: * Recommended range of motion and stretching exercises Orders: Orders PT Evaluation and Treatment Today S93.492A - Sprain of other ligament of left ankle, initial encounter Medications: New celecoxib (Celebrex) Take 1 pill twice a day with food 200 mg PO BID PRN 30 caps 0RF pain (scale score 7-10) S93.492A - Sprain of other ligament of left ankle, initial encounter Discontinued diclofenac sodium Take 1 pill twice a day with food. Discontinued Reason: Patient no longer taking 75 mg PO BID PRN 30 tabs 1RF ankle sprain S93.402A - Sprain of unspecified ligament of left ankle, initial encounter Coding Level of Care Code Est Pt Level 3 (39972) Diagnoses Sprain of anterior talofibular ligament of left ankle, initial encounter S93.492A Encounter type: initial encounter Involved ligament of ankle: anterior talofibular ligament Tendinitis of left ankle M77.52
== END 2025-03-18 10:18 | disposition home or self-care (01) ==
LOC: HO.HPODS 09:31
PROVIDERS: PCP Internal Medicine; Visit Provider Student in an Organized Health Care Education/Training Program
DX: S93.492A Sprain of other ligament of left ankle, initial encounter (principal); M77.52 Other enthesopathy of left foot and ankle
CPT/HCPCS: 99213

== ENCOUNTER → 2025-03-18 09:30 | Outpatient (BNVA) | payer OTHER, SELFPAY | PROVIDERS: PCP Internal Medicine; Visit Provider Student in an Organized Health Care Education/Training Program | DX: S93.492D Sprain of other ligament of left ankle, subsequent encounter (principal); M77.52 Other enthesopathy of left foot and ankle; E11.9 Type 2 diabetes mellitus without complications | CPT/HCPCS: 99212 ==

== ENCOUNTER 2025-04-08 09:26 | Outpatient (AMB) | payer OTHER, SELFPAY ==
--- OUTSIDE RECORDS SUMMARY | 2023-11-09 04:00 | XMS_ITS ---
Author Organization [facility] Address [address] [place], [place] [id number] Care Team Providers Care Assembly Hand Name Role Phone Migration, Provider Unavailable Unavailable REASON FOR VISIT EMR-Joseph Encounters Encounter Location Date Provider Diagnosis [address] [id number] 11/09/2023 Provider Migration Plan Of Treatment No Information Progress Notes * FREDERIC GARZAOB:[birth year] (34 yo F)Acc No.[id number]:11/09/2023 Patient: RAYMOND VILLATORO :1990 A ge:32 Y S ex:Female Address:[address] [place] [address] Subjective: * Chief Complaints: * E MR-Joseph * * Date:
--- OUTSIDE RECORDS SUMMARY | 2023-11-10 04:00 | XMS_ITS ---
Author Organization [facility] Address [address] [place], [place] [phone] Care Team Providers Care Hydrographer Name Role Phone Migration, Provider Unavailable Unavailable REASON FOR VISIT EMR-Joseph Encounters Encounter Location Date Provider Diagnosis [address] [id number] 11/10/2023 Provider Migration Plan Of Treatment No Information Progress Notes * FREDERIC GARZAOB:[birth year] (34 yo F)Acc No.[id number]:11/10/2023 Patient: RAYMOND VILLATORO :1990 A ge:32 Y S ex:Female Address:[address] [place] [address] Subjective: * Chief Complaints: * E MR-Joseph * * Date:
[2025-04-08 10:12] VITALS: BP 137/74; PULSE 89; BMI 39.0
--- NOTE | 2025-04-08 10:12 | A.OFFVIS_ITS ---
Vital Signs 04/08/25 10:12 Height 5 ft 2 in Weight 213 lb BMI 39.0 BP 137/74 Blood Pressure Location Lt brachial Pulse 89 Intake Visit Reasons: 3 week f/u Intake Note: Salvador is a 34 year old female who presents today for a follow up on her left ankle sprain. At her last visit patient was instructed to continue with the R.I.C.E protocol and she was transitioned to a lace up ankle brace. She was handed a range of motion exercises to perform while at home and she was referred to PT, and she was prescribed Celebrex. Patient reports everything has remained the same and she still has not seen much improvement. She has an appointment with PT on 04/29/25 Allergies Penicillins Allergy (Intermediate, Verified 04/08/25 10:15) Hives HPI HPI 3 week f/u: Details: The patient is a 34-year-old female past medical history diabetes mellitus type 2, hypertension who returns for 3 week follow up for left ankle injury. She is no longer using her cam boot, now using her ankle brace. She does note improvement however she still has persistent pain and walks with a limp. She has been taking Celebrex without any GI discomfort and does note that it is helping her pain. She is scheduled for physical therapy in April. She is still out of work. History: The injury occurred approximately 1st week of February (DOI: 02/26/2025) when the patient slipped and fell at work, resulting in immediate inability to walk. Initially, the patient managed the injury by resting the foot in a freezer at work and using a chair for support. She went to the emergency room and received x-rays which she told were negative. She was discharged with crutches and a stirrup ankle brace. The patient reports that the pain had progressively worsened, particularly at night, despite attempts at pain management. She denies a history of ankle sprains, denies any new injuries or falls since then. [facility] Medical History (Updated 03/18/25 @ 10:09 by Aakash Espinosa DPM) Essential hypertension GERD (gastroesophageal reflux disease) Non-insulin dependent type 2 diabetes mellitus Mixed hyperlipidemia due to type 2 diabetes mellitus Vitamin D deficiency Diabetes mellitus Obesity (BMI 30-39.9) Smoker HGSIL (high grade squamous intraepithelial lesion) on Pap smear of cervix Surgical History History of loop electrical excision procedure (LEEP) History of colposcopy (~08/26/23) Hx of tubal ligation Family History Paternal Grandfather Colon cancer Social History Household Members: None Housing: Apartment Alcohol intake: never Patient Tobacco Use Status: Current everyday Tobacco user Tobacco use type: Cigarette Cigarette Packs Per Day: 0.25 Cigarettes Per Day: 4 Years Smoked: 7 e-Cigarette/Vaping Use: Never Used Second Hand Smoke Exposure: Yes service: No Current occupational status: unemployed Cognitive needs: No Hearing needs: No Vision needs: No Female Reproductive History Menstrual Age of Menarche: 11 Review of Systems Const All systems reviewed & are unremarkable except as noted in HPI and below Physical Exam Vital Signs: Last Vital Signs Pulse 89 04/08/25 10:12 BP 137/74 04/08/25 10:12 BMI result Body Mass Index 39.0 Extrem Other: *Bilateral Lower Extremity Focused Foot/Ankle Exam Vascular: DP/PT 2/4, CFT<3s to digits, TG warm to cool, persistent mild left lateral ankle edema, pedal hair present Derm: No ecchymosis present to the left lateral ankle. Neuro: Protective sensation grossly intact to bilateral lower extremities. Negative Tinel sign to the intermediate dorsal cutaneous nerve. Msk: Moderate pain on palpation along the left lateral ankle ligaments. No longer having pain on palpation of the anterior extensor tendons. Decreased, mild tenderness on palpation of the peroneal tendons retromalleolar groove. Eversion strength intact 4+/5, improving. No Pain on palpation along the deltoid ligament left ankle No Pain on palpation along the syndesmosis left ankle (+) anterior drawer sign of the left ankle Negative stress eversion of the left ankle Negative stress external rotation of the left ankle Deformities: No evidence of hammertoes, bunions, Charcot changes, or other structural abnormalities. Gait: Antalgic full Weight-bearing in aircast Results Reviewed Results Reviewed: Podiatry X-ray Read: 03/16/2025 X-ray left foot 3 views (AP, MO, Lateral) reviewed which shows no fractures, dislocations, or gross abnormalities. Bone density is within normal limits. Normal anatomy. No evidence of swelling, foreign body, or calcifications. I personally reviewed the imaging and my findings are listed above. Podiatry X-ray Read: 03/16/2025 X-ray [right/left] ankle 3 views (AP, Mortise, Lateral) reviewed which shows no fractures, dislocations, osteochondral defects, or gross abnorma lities. Anatomic alignment of the tibiotalar joint. Bone density is within normal limits. No evidence of swelling, foreign body, or calcifications. I personally reviewed the imaging and my findings are listed above. Assessment & Plan Assessment & Plan (1) Left ankle sprain: Code(s): S93.402A - Sprain of unspecified ligament of left ankle, initial encounter Category: Medical Qualifiers: Encounter type: initial encounter Involved ligament of ankle: anterior talofibular ligament Qualified Code(s): S93.492A - Sprain of other ligament of left ankle, initial encounter Plan: * Reviewed left foot and ankle x-rays with the patient. * The patient has at least a grade 2 ankle sprain, injuring the lateral ankle ligaments, and nail straightening the anterior extensor tendons. Patient has persistent pain on anterior drawer test after 1 month, she may have grade 3 injury. * The patient was instructed to continue to rest, ice, compress and elevate. * Continue lace-up ankle brace for 4 more weeks. * Continue passive range of motion exercises to perform at home. * Continue physical therapy. * A work note was given to be out of work until 05/26/2025. * Rx Celebrex refilled. * Follow up in 1 month. She may require an MRI if symptoms persist. (2) Tendinitis of left ankle: Code(s): M77.52 - Other enthesopathy of left foot and ankle Category: Medical Plan: * Recommended range of motion and stretching exercises Medications: Refilled celecoxib (Celebrex) Take 1 pill twice a day with food 200 mg PO BID PRN 30 caps 0RF pain (scale score 7-10) S93.492A - Sprain of other ligament of left ankle, initial encounter Coding Level of Care Code Est Pt Level 3 (48183) Diagnoses Sprain of anterior talofibular ligament of left ankle, initial encounter S93.492A Encounter type: initial encounter Involved ligament of ankle: anterior talofibular ligament Tendinitis of left ankle M77.52 Time Spent (min) 30
--- OUTSIDE RECORDS SUMMARY | 2025-04-08 10:49 | XMS_ITS | Patient Health Record ---
Author Organization [facility] Address [address], [place] [id number] Support Name Relationship Address Phone RAYMOND GARZA Guarantor Unknown [phone] Reason For Referral No Information Plan Of Treatment No Information Insurance Providers Payer Name Payer Address Payer Phone Subscriber Number Group Number Insured Name Patient Relationship to Insured Coverage Start Date Coverage End Date [facility] [address] [place] [address] [phone] [id number] RAYMOND GARZA Self - patient is the insured 2022
== END 2025-04-08 10:25 | disposition home or self-care (01) ==
LOC: HO.HPODS 09:26
PROVIDERS: PCP Internal Medicine; Visit Provider Student in an Organized Health Care Education/Training Program
DX: S93.492A Sprain of other ligament of left ankle, initial encounter (principal); M77.52 Other enthesopathy of left foot and ankle
CPT/HCPCS: 99213

== ENCOUNTER → 2025-04-08 09:26 | Outpatient (BNVA) | payer OTHER, SELFPAY | PROVIDERS: PCP Internal Medicine; Visit Provider Student in an Organized Health Care Education/Training Program | DX: S93.492A Sprain of other ligament of left ankle, initial encounter (principal); M77.52 Other enthesopathy of left foot and ankle; E11.9 Type 2 diabetes mellitus without complications; X58.XXXA Exposure to other specified factors, initial encounter; Y93.9 Activity, unspecified; Y92.9 Unspecified place or not applicable; Y99.9 Unspecified external cause status | CPT/HCPCS: 99212 ==

== ENCOUNTER 2025-04-08 10:37 | Outpatient (AMB) | payer OTHER, SELFPAY ==
--- NOTE | 2025-04-08 11:01 | A.OFFPC_ITS ---
Vital Signs 04/08/25 11:02 04/08/25 11:07 Weight 214 lb BP 144/84 H 140/88 H Blood Pressure Location Rt brachial Rt brachial Position Sitting Sitting Pulse 75 Pulse Source Pulse Oximeter Temp 97.5 F Temp Source Oral Pulse Oximetry (%) 97 Oxygen Delivery Method Room Air Intake Visit Reasons: Headache, High BP Allergies Penicillins Allergy (Intermediate, Verified 04/08/25 10:15) Hives Tobacco use date assessed: 03/01/25 Dental Screening Dental Screen Date: 03/01/25 [facility] Medical History (Updated 03/18/25 @ 10:09 by Aakash Espinosa DPM) Essential hypertension GERD (gastroesophageal reflux disease) Non-insulin dependent type 2 diabetes mellitus Mixed hyperlipidemia due to type 2 diabetes mellitus Vitamin D deficiency Diabetes mellitus Obesity (BMI 30-39.9) Smoker HGSIL (high grade squamous intraepithelial lesion) on Pap smear of cervix Surgical History History of loop electrical excision procedure (LEEP) History of colposcopy (~08/26/23) Hx of tubal ligation Family History Paternal Grandfather Colon cancer Social History Household Members: None Housing: Apartment Alcohol intake: never Patient Tobacco Use Status: Current everyday Tobacco user Tobacco use type: Cigarette Cigarette Packs Per Day: 0.25 Cigarettes Per Day: 4 Years Smoked: 7 Packs Per Year: 2 Packs per year/per ci.40 e-Cigarette/Vaping Use: Never Used Second Hand Smoke Exposure: Yes service: No Current occupational status: unemployed Cognitive needs: No Hearing needs: No Vision needs: No Female Reproductive History Menstrual Age of Menarche: 11 Questionnaire Thrive Questionnaire Date Thrive assessed: 09/25/24 JADE-7 AMB Questionnaire JADE-7 Date JADE - 7 assessed: 09/25/24 Source: Developed by Drs. Anthony Oakes, Kendy Ford, Alf Billings and colleagues, with an educational timoteo from [employer]. Physical exam (Primary Care) Vital Signs: Last Vital Signs Temp 97.5 F 04/08/25 11:02 Pulse 75 04/08/25 11:02 BP 140/88 H 04/08/25 11:07 Pulse Ox 97 04/08/25 11:02 Oxygen Delivery Method Room Air 04/08/25 11:02 Tobacco/Smoking Status: Tobacco use Status Tobacco use date assessed 03/01/25 04/08/25 11:07 Patient Tobacco Use Status Current everyday Tobacco 04/08/25 11:07 Tobacco use type Cigarette 04/08/25 11:07 e-Cigarette/Vaping Use Never Used 04/08/25 11:07 Thrive Assessment: Date of Thrive Assessment Date Thrive assessed 09/25/24 04/08/25 11:07 Coding Diagnoses Elevated blood pressure reading in office with diagnosis of hypertension I10 Assessment & Plan Assessment & Plan (1) Elevated blood pressure reading in office with diagnosis of hypertension: Code(s): I10 - Essential (primary) hypertension Medications: New acetaminophen 650 mg (2 x 325 mg) PO Q6H PRN 20 caps 0RF pain
[2025-04-08 11:02] VITALS: BP 144/84; PULSE 75; TEMP 36.4; O2SAT 97
[2025-04-08 11:07] VITALS: BP 140/88
--- NOTE | 2025-04-08 11:29 | MHC.OFFWIV ---
Intake Vital Signs 04/08/25 11:02 04/08/25 11:07 Weight 214 lb BP 144/84 H 140/88 H Blood Pressure Location Rt brachial Rt brachial Position Sitting Sitting Pulse 75 Pulse Source Pulse Oximeter Temp 97.5 F Temp Source Oral Pulse Oximetry (%) 97 Oxygen Delivery Method Room Air Intake Visit Reasons: Headache, High BP Patient Tobacco Use Status: Current everyday Tobacco user Allergies Penicillins Allergy (Intermediate, Verified 04/08/25 10:15) Hives Medication List - Last Reconciled 04/08/25 by Adrienne Lentz MD acetaminophen 650 mg (2 x 325 mg) PO Q6H PRN albuterol sulfate 90 mcg/actuation 2 puffs inhalation Q6H PRN blood sugar diagnostic (Auro M[employer] EnergyTouch Ultra Test strips) As directed blood-glucose meter (Auro M[employer] EnergyTouch Ultra2 Meter) As directed celecoxib (Celebrex) 200 mg PO BID PRN cholecalciferol (vitamin D3) 50 mcg PO DAILY 90 days lisinopril 10 mg PO DAILY metformin 1,000 mg PO BID mupirocin 2% 1 appl topical TID PRN nabumetone 500 mg PO BID PRN nebulizer and compressor (Vios Aerosol Delivery System) As directed pantoprazole 40 mg PO DAILY HPI HPI Comments History of Present Illness Details History of Present Illness The patient is a 34-year-old female with a past medical history of hypertension, [id number] type 2 diabetes mellitus, GERD who presenting with elevated blood pressures. patient speaks primarily Kitt[place] and brought her neighbor to translate for her. Patient declined in office appointment scheduler. - The patient has been experiencing significantly elevated blood pressures for the past two days, with readings as high as 185/140 mmHg and 193/119 mmHg. - She was seen by her director of nurses registry earlier today where her blood pressures were better controlled - Associated symptoms included headaches and nausea. - She is prescribed lisinopril 10 mg daily but admits to not taking it regularly and only takes medication when she noticed her blood pressures are elevated. - Due to the high readings, she took her prescribed dose of lisinopril twice yesterday. - The patient also reports recent high-dose use of ibuprofen, taking it more than 6 times yesterday for aches and headache. - She has a prescription for celecoxib from a director of nurses registry which she has also been taking intermittently. - She denies any current dizziness, vision changes, chest pain, shortness of breath, focal weakness, or vomiting. Review of Systems Constitutional: Negative for fevers, chills Eyes: Negative for eye pain, visual disturbance Respiratory: Negative for shortness of breath Cardiac: Negative for chest pain, palpitations Neurological: Reports headaches, Negative for dizziness, light headedness, numbness, weakness Physical Exam General Appearance: Normal appearance, well developed. No acute distress Head: Normocephalic, atraumatic Eyes: PERRLA. EOM intact. No nystagmus Cardiovascular: RRR. No obvious M/G/R Pulmonary: No respiratory distress. Speaking in full sentences Musculoskeletal: Moving all extremities spontaneously and against gravity Neurological: CN 2-12 tested and intact. Strength in upper and lower extremities 5/5 Mental Status: Alert and Oriented x 3 Psychiatric: Normal mood. Normal affect. [facility] Medical History (Updated 03/18/25 @ 10:09 by Aakash Espinosa DPM) Essential hypertension GERD (gastroesophageal reflux disease) Non-insulin dependent type 2 diabetes mellitus Mixed hyperlipidemia due to type 2 diabetes mellitus Vitamin D deficiency Diabetes mellitus Obesity (BMI 30-39.9) Smoker HGSIL (high grade squamous intraepithelial lesion) on Pap smear of cervix Surgical History History of loop electrical excision procedure (LEEP) History of colposcopy (~08/26/23) Hx of tubal ligation Family History Paternal Grandfather Colon cancer Social History Household Members: None Housing: Apartment Alcohol intake: never Patient Tobacco Use Status: Current everyday Tobacco user Tobacco use type: Cigarette Cigarette Packs Per Day: 0.25 Cigarettes Per Day: 4 Years Smoked: 7 e-Cigarette/Vaping Use: Never Used Second Hand Smoke Exposure: Yes service: No Current occupational status: unemployed Cognitive needs: No Hearing needs: No Vision needs: No Female Reproductive History Menstrual Age of Menarche: 11 Physical Exam Vital Signs: Last Vital Signs Temp 97.5 F 04/08/25 11:02 Pulse 75 04/08/25 11:02 BP 140/88 H 04/08/25 11:07 Pulse Ox 97 04/08/25 11:02 Oxygen Delivery Method Room Air 04/08/25 11:02 Assessment & Plan Assessment & Plan (1) Elevated blood pressure reading with diagnosis of hypertension: Code(s): I10 - Essential (primary) hypertension Plan - Patient reports a history of elevated blood pressures the last 2 days. Blood pressures today are better controlled. - Poorly-controlled blood pressures may be multifactorial including nonadherence with lisinopril 10 mg daily and NSAID use - Advised the patient to take lisinopril 10 mg daily at the same time each day regardless of blood pressure readings at home. - Instructed to discontinue ibuprofen and hold celecoxib which was prescribed for an ankle sprain, as NSAIDs can increase blood pressure. Recommended Tylenol every 6 hours as needed for aches/pain. Prescription sent to patients pharmacy. - Counseled on decreasing dietary salt intake. - Advised patient to monitor blood pressure at home and to seek emergency care for symptoms such as severe headaches, headache unresponsive to Tylenol, blurry vision, focal weakness, chest pain, or shortness of breath. - Recommended follow-up with her primary care provider to re-evaluate her blood pressure control and bring in daily logs to her appointment Patient was informed and verbally consented to the use of an ambient scribe for clinic note documentation during the visit. Medications: New acetaminophen 650 mg (2 x 325 mg) PO Q6H PRN 20 caps 0RF pain Coding Level of Care Code Est Pt Level 3 (43905) Diagnoses Elevated blood pressure reading with diagnosis of hypertension I10
== END 2025-04-08 11:47 | disposition home or self-care (01) ==
PROVIDERS: PCP Internal Medicine; Visit Provider Family Medicine
DX: I10 Essential (primary) hypertension (principal)

== ENCOUNTER 2025-05-10 09:20 | Outpatient (AMB) | payer OTHER, SELFPAY ==
[2025-05-10 09:32] VITALS: BMI 39.1
--- NOTE | 2025-05-10 09:32 | A.OFFVIS_ITS ---
Vital Signs 05/10/25 09:32 Height 5 ft 2 in Weight 214 lb BMI 39.1 Intake Visit Reasons: 1 month fu Intake Note: Salvador is a 34 year old female who presents today for a follow up on her left ankle sprain. At her last visit she was advised to continue utilizing the lace- up ankle brace, perform passive range of motion exercises at home, and to continue with PT. Her celebrex prescriptions was refilled at last visit. Patient reports everything is going well however she states the pain has remained the same. Allergies Penicillins Allergy (Intermediate, Verified 05/10/25 09:33) Hives HPI HPI 1 month fu: Details: The patient is a 34-year-old female past medical history diabetes mellitus type 2, hypertension who returns for 1 month follow up for left ankle injury. She started going to physical therapy. She still describes left ankle pain, is only able to ambulate with her lace-up ankle brace. She is taking celebrex for pain. She had a hypertensive urgency episode a month ago and was restarted on her HTN medications; she has been taking NSAIDs since then with no new episodes of HTN. History: The injury occurred approximately 1st week of February (DOI: 02/26/2025) when the patient slipped and fell at work, resulting in immediate inability to walk. Initially, the patient managed the injury by resting the foot in a freezer at work and using a chair for support. She went to the emergency room and received x-rays which she told were negative. She was discharged with crutches and a stirrup ankle brace. The patient reports that the pain had progressively worsened, particularly at night, despite attempts at pain management. She denies a history of ankle sprains, denies any new injuries or falls since then. [facility] Medical History (Updated 03/18/25 @ 10:09 by Aakash Espinosa DPM) Essential hypertension GERD (gastroesophageal reflux disease) Non-insulin dependent type 2 diabetes mellitus Mixed hyperlipidemia due to type 2 diabetes mellitus Vitamin D deficiency Diabetes mellitus Obesity (BMI 30-39.9) Smoker HGSIL (high grade squamous intraepithelial lesion) on Pap smear of cervix Surgical History History of loop electrical excision procedure (LEEP) History of colposcopy (~08/26/23) Hx of tubal ligation Family History Paternal Grandfather Colon cancer Social History Household Members: None Housing: Apartment Alcohol intake: never Patient Tobacco Use Status: Current everyday Tobacco user Tobacco use type: Cigarette Cigarette Packs Per Day: 0.25 Cigarettes Per Day: 4 Years Smoked: 7 e-Cigarette/Vaping Use: Never Used Second Hand Smoke Exposure: Yes service: No Current occupational status: unemployed Cognitive needs: No Hearing needs: No Vision needs: No Female Reproductive History Menstrual Age of Menarche: 11 Review of Systems Const All systems reviewed & are unremarkable except as noted in HPI and below Physical Exam Vital Signs: BMI result Body Mass Index 39.1 Extrem Other: *Bilateral Lower Extremity Focused Foot/Ankle Exam Vascular: DP/PT 2/4, CFT<3s to digits, TG warm to cool, persistent mild left la teral ankle edema, pedal hair present Derm: No ecchymosis present to the left lateral ankle. Neuro: Protective sensation grossly intact to bilateral lower extremities. Negative Tinel sign to the intermediate dorsal cutaneous nerve. Msk: Mild pain on palpation along the left lateral ankle ligaments. Mild pain on palpation of the lateral anterior extensor tendons. No tenderness on palpation of the peroneal tendons retromalleolar groove. Eversion strength 5/5. No Pain on palpation along the deltoid ligament left ankle No Pain on palpation along the syndesmosis left ankle negative anterior drawer sign of the left ankle Negative stress eversion of the left ankle Negative stress external rotation of the left ankle Deformities: No evidence of hammertoes, bunions, Charcot changes, or other structural abnormalities. Gait: Antalgic full Weight-bearing in aircast Assessment & Plan Assessment & Plan (1) Left ankle sprain: Code(s): S93.402A - Sprain of unspecified ligament of left ankle, initial encounter Category: Medical Qualifiers: Encounter type: initial encounter Involved ligament of ankle: anterior talofibular ligament Qualified Code(s): S93.492A - Sprain of other ligament of left ankle, initial encounter Plan: * The patient has at least a grade 2 ankle sprain, injuring the lateral ankle ligaments, and nail straightening the anterior extensor tendons. * Rx left ankle MRI to evaluate lateral ankle ligaments for partial/complete ATFL tear. * Discontinue lace-up ankle brace when at hoe. Continue lace-up ankle brace when leaving the house and working. * Continue passive range of motion exercises to perform at home. * Continue physical therapy. * Rx Celebrex refilled. * Follow up in 1 month. (2) Tendinitis of left ankle: Code(s): M77.52 - Other enthesopathy of left foot and ankle Category: Medical Plan: * Continue range of motion and stretching exercises Orders: Orders MR ankle LT wo con Today M77.52 - Other enthesopathy of left foot and ankle, S93.492A - Sprain of other ligament of left ankle, initial encounter Medications: Refilled celecoxib (Celebrex) Take 1 pill twice a day with food 200 mg PO BID PRN 30 caps 0RF pain (scale score 7-10) S93.492A - Sprain of other ligament of left ankle, initial encounter Coding Level of Care Code Est Pt Level 3 (74942) Diagnoses Sprain of anterior talofibular ligament of left ankle, initial encounter S93.492A Encounter type: initial encounter Involved ligament of ankle: anterior talofibular ligament Tendinitis of left ankle M77.52 Time Spent (min) 25
== END 2025-05-10 09:39 | disposition home or self-care (01) ==
PROVIDERS: PCP Internal Medicine; Visit Provider Student in an Organized Health Care Education/Training Program
DX: S93.492A Sprain of other ligament of left ankle, initial encounter (principal); M77.52 Other enthesopathy of left foot and ankle
CPT/HCPCS: 99213

== ENCOUNTER → 2025-05-10 09:20 | Outpatient (BNVA) | payer OTHER, SELFPAY | PROVIDERS: PCP Internal Medicine; Visit Provider Student in an Organized Health Care Education/Training Program | DX: S93.492A Sprain of other ligament of left ankle, initial encounter (principal); E11.9 Type 2 diabetes mellitus without complications; I10 Essential (primary) hypertension; M77.52 Other enthesopathy of left foot and ankle; X58.XXXA Exposure to other specified factors, initial encounter; Y93.9 Activity, unspecified; Y92.9 Unspecified place or not applicable; Y99.9 Unspecified external cause status | CPT/HCPCS: 99212 ==